=== PATIENT | male | born 1935 | race Caucasian/White ===

== ENCOUNTER 2019-08-20 12:37 | Emergency (ER) | payer MEDICARE ==
[2019-08-20 12:46] VITALS: TEMP 98.3
[2019-08-20] MEDS ORDERED: NITROGLYCERIN-D5W PMX 50 MG in DEXTROSE/WATER 1 250ML.BAG IV STA (12:49)
[2019-08-20] MEDS ORDERED: ASPIRIN 81 MG PO STA (12:49)
--- NOTE | 2019-08-20 12:52 | ED ---
General Adult HPI - General Chief complaint: Chest Pain Stated complaint: Chest pain Time Seen by Provider: 08/20/19 12:45 Source: patient, RN notes reviewed Mode of arrival: EMS Limitations: no limitations - History of Present Illness Initial comments: Patient is a pleasant 83-year-old male presenting to the emergency Department with chest discomfort. Onset of symptoms was prior to arrival. Discomfort was severe 9/10. Discomfort is much better now 5/10 following aspirin and nitro I EMS. Discomfort feels like an ache. No radiation. Patient does have associated dyspnea, nausea and was very sweaty. Patient does have a history of similar symptoms previously associated with heart attack and stent placement. - Related Data Home Medications Medication Instructions Recorded Confirmed Amiodarone [Cordarone] 100 mg PO DAILY 08/20/19 08/20/19 Apixaban [Eliquis] 2.5 mg PO BID 08/20/19 08/20/19 Aspirin EC [Ecotrin Low Dose] 81 mg PO HS 08/20/19 08/20/19 Atorvastatin [Lipitor] 40 mg PO HS 08/20/19 08/20/19 Ferrous Sulfate [Feosol] 325 mg PO HS 08/20/19 08/20/19 Furosemide [Lasix] 40 mg PO HS 08/20/19 08/20/19 HYDROcodone/APAP 10-325MG [[place] 1 tab PO DAILY PRN 08/20/19 08/20/19 10-325] Isosorbide Mononitrate ER [Imdur] 60 mg PO DAILY 08/20/19 08/20/19 Metoprolol Succinate (ER) [Toprol 25 mg PO DAILY 08/20/19 08/20/19 Xl] Nitroglycerin Sl Tabs [Nitrostat] 0.4 mg SUBLINGUAL Q5M PRN 08/20/19 08/20/19 Pantoprazole Sodium [Protonix] 40 mg PO HS 08/20/19 08/20/19 amLODIPine [Norvasc] 5 mg PO DAILY 08/20/19 08/20/19 hydrALAZINE HCL [Apresoline] 100 mg PO TID 08/20/19 08/20/19 predniSONE 20 mg PO DAILY 08/20/19 08/20/19 Allergies Allergy/AdvReac Type Severity Reaction Status Date / Time No Known Allergies Allergy Verified 08/20/19 14:24 Review of Systems ROS Statement: Those systems with pertinent positive or pertinent negative responses have been documented in the HPI. ROS Other: All systems not noted in ROS Statement are negative. Constitutional: Denies: fever Eyes: Denies: eye pain ENT: Denies: ear pain Respiratory: Reports: as per HPI, dyspnea Cardiovascular: Reports: as per HPI, chest pain Endocrine: Denies: fatigue Gastrointestinal: Reports: nausea Genitourinary: Denies: dysuria Musculoskeletal: Denies: back pain Skin: Denies: rash Neurological: Denies: weakness Past Medical History Past Medical History: Atrial Fibrillation, Cancer, Hyperlipidemia, Hypertension, Seizure Disorder Additional Past Medical History / Comment(s): bladder CA Prostate CA History of Any Multi-Drug Resistant Organisms: None Reported Past Surgical History: Bladder Surgery, Prostate Surgery Past Psychological History: No Psychological Hx Reported Smoking Status: Former smoker Past Alcohol Use History: None Reported Past Drug Use History: None Reported General Exam Limitations: no limitations General appearance: alert, in no apparent distress Head exam: Present: normocephalic Eye exam: Present: normal appearance, PERRL ENT exam: Present: normal oropharynx Neck exam: Present: normal inspection Respiratory exam: Present: normal lung sounds bilaterally. Absent: chest wall tenderness Cardiovascular Exam: Present: regular rate, normal rhythm Expanded Peripheral pulses: 2+: Radial (R), Radial (L), Posterior Tibialis (R), Posterior Tibialis (L), Dorsalis Pedis (R), Dorsalis Pedis (L) GI/Abdominal exam: Present: soft. Absent: distended, tenderness Extremities exam: Present: normal inspection. Absent: pedal edema, calf tenderness Neurological exam: Present: alert Psychiatric exam: Present: normal affect, normal mood Skin exam: Present: normal color Course Vital Signs 08/20/19 08/20/19 08/20/19 12:41 13:00 13:15 Temperature 98.3 F Pulse Rate 84 83 66 Respiratory 18 26 H 13 Rate Blood Pressure 203/85 203/85 187/84 O2 Sat by Pulse 95 98 98 Oximetry 08/20/19 08/20/19 08/20/19 13:30 13:45 14:00 Temperature Pulse Rate 62 60 62 Respiratory 16 14 17 Rate Blood Pressure 163/66 161/68 154/68 O2 Sat by Pulse 96 98 96 Oximetry 08/20/19 14:15 Temperature Pulse Rate 61 Respiratory 18 Rate Blood Pressure 151/64 O2 Sat by Pulse 98 Oximetry - Reevaluation(s) Reevaluation #1: 08/20/19 12:50 Cardiology has been paged 08/20/19 12:53 Case was discussed with Dr. Liriano who will look at EKG. 08/20/19 13:31 Repeat EKG shows normal sinus rhythm 66. WV 174. QRS 142. QT 438. QTC 459. Left axis. Right bundle branch block. Left anterior fascicular block. LVH criteria. Some ST depression in lead V5. Borderline elevation in aVR. 08/20/19 14:36 Previous EKG reviewed from 08/17/2019 with some similarities. This was is obtained from the patient's cardiology office. EKG Findings - EKG Comments: EKG Findings:: Normal sinus rhythm 86. W[place] 182. QRS 144. QT 426. QTc 509. Left axis. LVH criteria. There is some elevation in aVR. There is some ST depression V5 V6. Medical Decision Making - Medical Decision Making Patient reevaluated and near symptom-free. Patient and family updated on results and plan. 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 Case was discussed with Dr. Martinez at [facility] who will accept transfer. Patient does see Dr. lange there. Heparin not started secondary to patient being on Eliquis. - Lab Data Result diagrams: 08/20/19 12:49 08/20/19 12:49 Lab Results 08/20/19 08/20/19 08/20/19 Range/Units 12:49 12:49 12:49 WBC 9.3 (3.8-10.6) k/uL RBC 3.91 L (4.30-5.90) m/uL Hgb 9.8 L (13.0-17.5) gm/dL Hct 32.2 L (39.0-53.0) % MCV 82.3 (80.0-100.0) fL MCH 25.1 (25.0-35.0) pg MCHC 30.5 L (31.0-37.0) g/dL RDW 17.8 H (11.5-15.5) % Plt Count 301 (150-450) k/uL Neutrophils % 88 % Lymphocytes % 5 % Monocytes % 6 % Eosinophils % 0 % Basophils % 0 % Neutrophils # 8.1 H (1.3-7.7) k/uL Lymphocytes # 0.5 L (1.0-4.8) k/uL Monocytes # 0.6 (0-1.0) k/uL Eosinophils # 0.0 (0-0.7) k/uL Basophils # 0.0 (0-0.2) k/uL Hypochromasia Moderate Anisocytosis Slight PT 10.1 (9.0-12.0) sec INR 0.9 (<1.2) APTT 23.6 (22.0-30.0) sec Sodium 139 (137-145) mmol/L Potassium 4.5 (3.5-5.1) mmol/L Chloride 106 (98-107) mmol/L Carbon Dioxide 23 (22-30) mmol/L Anion Gap 10 mmol/L BUN 28 H (9-20) mg/dL Creatinine 2.13 H (0.66-1.25) mg/dL Est GFR (CKD-EPI)AfAm 32 (>60 ml/min/1.73 sqM) Est GFR (CKD-EPI)NonAf 27 (>60 ml/min/1.73 sqM) Glucose 213 H (74-99) mg/dL Calcium 10.3 H (8.4-10.2) mg/dL Magnesium 2.6 H (1.6-2.3) mg/dL Total Bilirubin 0.4 (0.2-1.3) mg/dL AST 20 (17-59) U/L ALT 22 (21-72) U/L Alkaline Phosphatase 77 (38-126) U/L Troponin I (0.000-0.034) ng/mL Total Protein 7.4 (6.3-8.2) g/dL Albumin 4.4 (3.5-5.0) g/dL 08/20/19 Range/Units 12:49 WBC (3.8-10.6) k/uL RBC (4.30-5.90) m/uL Hgb (13.0-17.5) gm/dL Hct (39.0-53.0) % MCV (80.0-100.0) fL MCH (25.0-35.0) pg MCHC (31.0-37.0) g/dL RDW (11.5-15.5) % Plt Count (150-450) k/uL Neutrophils % % Lymphocytes % % Monocytes % % Eosinophils % % Basophils % % Neutrophils # (1.3-7.7) k/uL Lymphocytes # (1.0-4.8) k/uL Monocytes # (0-1.0) k/uL Eosinophils # (0-0.7) k/uL Basophils # (0-0.2) k/uL Hypochromasia Anisocytosis PT (9.0-12.0) sec INR (<1.2) APTT (22.0-30.0) sec Sodium (137-145) mmol/L Potassium (3.5-5.1) mmol/L Chloride (98-107) mmol/L Carbon Dioxide (22-30) mmol/L Anion Gap mmol/L BUN (9-20) mg/dL Creatinine (0.66-1.25) mg/dL Est GFR (CKD-EPI)AfAm (>60 ml/min/1.73 sqM) Est GFR (CKD-EPI)NonAf (>60 ml/min/1.73 sqM) Glucose (74-99) mg/dL Calcium (8.4-10.2) mg/dL Magnesium (1.6-2.3) mg/dL Total Bilirubin (0.2-1.3) mg/dL AST (17-59) U/L ALT (21-72) U/L Alkaline Phosphatase (38-126) U/L Troponin I <0.012 (0.000-0.034) ng/mL Total Protein (6.3-8.2) g/dL Albumin (3.5-5.0) g/dL - Radiology Data Radiology results: image reviewed (Chest x-ray shows bilateral lower atelectasis or infiltrate with tiny left effusion) Critical Care Time Critical Care Time: Yes Total Critical Care Time: 31 Disposition Clinical Impression: Unstable angina pectoris Disposition: OTHER INSTITUTION NOT DEFINED Is patient prescribed a controlled substance at d/c from ED?: No Referrals: Vadim Torrez MD [Primary Care Provider] - 1-2 days Time of Disposition: 14:36 - Out of Hospital Transfer - Req. Specs Out of Hospital Transfer - Requested Specifics: Other Emergency Center
--- NOTE | 2019-08-20 13:05 | XR ---
EXAMINATION TYPE: XR chest 1V portable DATE OF EXAM: 08/20/2019 COMPARISON: 10/11/2012 HISTORY: Pain TECHNIQUE: Single frontal view of the chest is obtained. FINDINGS: Bilateral lower lobe subsegmental consolidation with small left effusion. Atherosclerotic change aorta. Diffuse osteopenia. No pneumothorax. No overt failure. IMPRESSION: Bilateral lower lobe atelectasis or infiltrate with tiny left effusion.
[2019-08-20] MEDS ORDERED: MORPHINE SULFATE 4 MG/ML SYRINGE IVP STA (13:07)
[2019-08-20 13:13] LABS: Anisocytosis Slight; Basophils % (A) 0 %; Eosinophils % (A) 0 %; HCT 32.2 % (39.0-53.0); HGB 9.8 gm/dL (13.0-17.5); Hypochromasia Moderate; Lymphocytes # (A) 0.5 k/uL (1.0-4.8); Lymphocytes % (A) 5 %; MCH 25.1 pg (25.0-35.0); MCHC 30.5 g/dL (31.0-37.0); MCV 82.3 fL (80.0-100.0); Mean Platelet Volume 8.2; Monocytes # (A) 0.6 k/uL (0-1.0); Monocytes % (A) 6 %; Neutrophils # (A) 8.1 k/uL (1.3-7.7); Neutrophils % (A) 88 %; Platelet Count 301 k/uL (150-450); RBC 3.91 m/uL (4.30-5.90); RDW 17.8 % (11.5-15.5); WBC 9.3 k/uL (3.8-10.6)
[2019-08-20 13:24] LABS: INR 0.9 (<1.2); Partial Thromboplastin Time 23.6 sec (22.0-30.0); Prothrombin Time 10.1 sec (9.0-12.0)
[2019-08-20 13:26] LABS: Albumin 4.4 g/dL (3.5-5.0); Calcium 10.3 mg/dL (8.4-10.2); Magnesium 2.6 mg/dL (1.6-2.3); Potassium 4.5 mmol/L (3.5-5.1); Total Bilirubin 0.4 mg/dL (0.2-1.3); Total Protein 7.4 g/dL (6.3-8.2)
[2019-08-20 15:29] VITALS: BP 163/74; PULSE 58; RESP 15
== END 2019-08-20 15:29 | disposition other institution (70) ==
LOC: EC 12:37
DX: I20.0 Unstable angina (principal); I48.91 Unspecified atrial fibrillation; E78.5 Hyperlipidemia, unspecified; I10 Essential (primary) hypertension; G40.909 Epilepsy, unspecified, not intractable, without status epilepticus; I25.2 Old myocardial infarction; Z79.01 Long term (current) use of anticoagulants; Z79.82 Long term (current) use of aspirin; Z79.899 Other long term (current) drug therapy; Z79.51 Long term (current) use of inhaled steroids; Z87.891 Personal history of nicotine dependence; Z85.46 Personal history of malignant neoplasm of prostate; Z85.51 Personal history of malignant neoplasm of bladder; Z95.5 Presence of coronary angioplasty implant and graft
CPT/HCPCS: 36415; 71045; 80053; 83735; 84484; 85025; 85610; 85730; 93005; 96365; 96366; 96375; 99291

== ENCOUNTER 2021-02-04 10:16 | Inpatient (IN) | payer MEDICARE ==
[2021-02-04] MEDS ORDERED: IBUPROFEN 600 MG TAB PO STA (10:17)
[2021-02-04] MEDS ORDERED: ACETAMINOPHEN TAB 500 MG TAB PO STA (10:17)
--- NOTE | 2021-02-04 10:22 | ED ---
General Adult HPI - General Stated complaint: Chest pain Time Seen by Provider: 02/04/21 10:16 Source: patient, RN notes reviewed, old records reviewed - History of Present Illness Initial comments: This is an 85-year-old male who presents to the emergency department complaining of chest pain and difficulty breathing as well as a cough. Patient states last night he had chest pain and shortness of breath and he took a nitroglycerin he thinks it helped a little he did it again this morning when he had a little chest pain and he states that helped a little but his biggest complaint is shortness of breath currently. Patient states she's also coughing up some sputum. Patient states he did get the COVID vaccine. Patient denies any fever but states he had the chills last night. Patient denies any chest pain currently. Patient denies any abdominal pain patient denies nausea vomiting diarrhea. - Related Data Home Medications Medication Instructions Recorded Confirmed Amiodarone [Cordarone] 100 mg PO DAILY 08/20/19 08/20/19 Apixaban [Eliquis] 2.5 mg PO BID 08/20/19 08/20/19 Aspirin EC [Ecotrin Low Dose] 81 mg PO HS 08/20/19 08/20/19 Atorvastatin [Lipitor] 40 mg PO HS 08/20/19 08/20/19 Ferrous Sulfate [Feosol] 325 mg PO HS 08/20/19 08/20/19 Furosemide [Lasix] 40 mg PO HS 08/20/19 08/20/19 HYDROcodone/APAP 10-325MG [[place] 1 tab PO DAILY PRN 08/20/19 08/20/19 10-325] Isosorbide Mononitrate ER [Imdur] 60 mg PO DAILY 08/20/19 08/20/19 Metoprolol Succinate (ER) [Toprol 25 mg PO DAILY 08/20/19 08/20/19 Xl] Nitroglycerin Sl Tabs [Nitrostat] 0.4 mg SUBLINGUAL Q5M PRN 08/20/19 08/20/19 Pantoprazole Sodium [Protonix] 40 mg PO HS 08/20/19 08/20/19 amLODIPine [Norvasc] 5 mg PO DAILY 08/20/19 08/20/19 hydrALAZINE HCL [Apresoline] 100 mg PO TID 08/20/19 08/20/19 predniSONE [Deltasone] 20 mg PO DAILY 08/20/19 08/20/19 Allergies Allergy/AdvReac Type Severity Reaction Status Date / Time No Known Allergies Allergy Verified 02/04/21 10:24 Review of Systems ROS Statement: Those systems with pertinent positive or pertinent negative responses have been documented in the HPI. ROS Other: All systems not noted in ROS Statement are negative. Past Medical History Past Medical History: Atrial Fibrillation, Cancer, Hyperlipidemia, Hypertension, Seizure Disorder Additional Past Medical History / Comment(s): bladder CA Prostate CA History of Any Multi-Drug Resistant Organisms: None Reported Past Surgical History: Bladder Surgery, Prostate Surgery Past Psychological History: No Psychological Hx Reported Past Alcohol Use History: None Reported Past Drug Use History: None Reported General Exam - General Exam Comments Initial Comments: GENERAL: Patient is well-developed and well-nourished. Patient is nontoxic and well- hydrated and is in mild distress. ENT: Neck is soft and supple. No significant lymphadenopathy is noted. Oropharynx is clear. Moist mucous membranes. Neck has full range of motion without eliciting any pain. EYES: The sclera were anicteric and conjunctiva were pink and moist. Extraocular movements were intact and pupils were equal round and reactive to light. Eyelids were unremarkable. PULMONARY: Unlabored respirations. Good breath sounds bilaterally. No audible rales rhonchi or wheezing was noted. CARDIOVASCULAR: There is a regular rate and rhythm without any murmurs gallops or rubs. ABDOMEN: Soft and nontender with normal bowel sounds. SKIN: Skin is clear with no lesions or rashes and otherwise unremarkable. NEUROLOGIC: Patient is alert and oriented x3. Cranial nerves II through XII are grossly intact. Motor and sensory are also intact. Normal speech, volume and content. Symmetrical smile. MUSCULOSKELETAL: Normal extremities with adequate strength and full range of motion. No lower extremity swelling or edema. No calf tenderness. LYMPHATICS: No significant lymphadenopathy is noted PSYCHIATRIC: Normal psychiatric evaluation. Course Vital Signs 02/04/21 02/04/21 02/04/21 10:19 10:37 11:10 Temperature 100.4 F H Pulse Rate 82 75 Respiratory 24 20 Rate Blood Pressure 179/76 166/65 O2 Sat by Pulse 95 93 L 99 Oximetry 02/04/21 11:46 Temperature 99.2 F Pulse Rate 78 Respiratory 20 Rate Blood Pressure 166/65 O2 Sat by Pulse 98 Oximetry Medical Decision Making - Medical Decision Making EKG shows normal sinus rhythm at 81 bpm CO interval 178 QRSs 132 QT interval 4:30 QTC is 499. Patient's EKG shows a right bundle branch block there is no ST segment elevation. Chest x-ray shows bilateral pleural effusions probable mild pulmonary edema as well as pneumonia. I started the patient antibiotics in the emergency department. I spoke with Dr. rivero he agreed to admit the patient admitted the patient wrote admitting orders. - Lab Data Result diagrams: 02/04/21 10:47 02/04/21 10:47 Lab Results 02/04/21 02/04/21 02/04/21 Range/Units 10:28 10:47 10:47 WBC 26.1 H (3.8-10.6) k/uL RBC 3.90 L (4.30-5.90) m/uL Hgb 9.4 L (13.0-17.5) gm/dL Hct 30.2 L (39.0-53.0) % MCV 77.4 L (80.0-100.0) fL MCH 24.2 L (25.0-35.0) pg MCHC 31.3 (31.0-37.0) g/dL RDW 15.6 H (11.5-15.5) % Plt Count 118 L (150-450) k/uL MPV 11.6 Neutrophils % 89 % Lymphocytes % 1 % Monocytes % 8 % Eosinophils % 0 % Basophils % 0 % Neutrophils # 23.1 H (1.3-7.7) k/uL Lymphocytes # 0.3 L (1.0-4.8) k/uL Monocytes # 2.2 H (0-1.0) k/uL Eosinophils # 0.0 (0-0.7) k/uL Basophils # 0.0 (0-0.2) k/uL Manual Slide Review Performed Microcytosis Slight PT 10.5 (9.0-12.0) sec INR 1.0 (<1.2) APTT 22.2 (22.0-30.0) sec Sodium (137-145) mmol/L Potassium (3.5-5.1) mmol/L Chloride (98-107) mmol/L Carbon Dioxide (22-30) mmol/L Anion Gap mmol/L BUN (9-20) mg/dL Creatinine (0.66-1.25) mg/dL Est GFR (CKD-EPI)AfAm (>60 ml/min/1.73 sqM) Est GFR (CKD-EPI)NonAf (>60 ml/min/1.73 sqM) Glucose (74-99) mg/dL Plasma Lactic Acid Ferny (0.7-2.0) mmol/L Calcium (8.4-10.2) mg/dL Total Bilirubin (0.2-1.3) mg/dL AST (17-59) U/L ALT (4-49) U/L Alkaline Phosphatase (38-126) U/L Troponin I (0.000-0.034) ng/mL NT-Pro-B Natriuret Pep pg/mL Total Protein (6.3-8.2) g/dL Albumin (3.5-5.0) g/dL Coronavirus (PCR) Not Detected (Not Detectd) 02/04/21 02/04/21 02/04/21 Range/Units 10:47 10:47 10:47 WBC (3.8-10.6) k/uL RBC (4.30-5.90) m/uL Hgb (13.0-17.5) gm/dL Hct (39.0-53.0) % MCV (80.0-100.0) fL MCH (25.0-35.0) pg MCHC (31.0-37.0) g/dL RDW (11.5-15.5) % Plt Count (150-450) k/uL MPV Neutrophils % % Lymphocytes % % Monocytes % % Eosinophils % % Basophils % % Neutrophils # (1.3-7.7) k/uL Lymphocytes # (1.0-4.8) k/uL Monocytes # (0-1.0) k/uL Eosinophils # (0-0.7) k/uL Basophils # (0-0.2) k/uL Manual Slide Review Microcytosis PT (9.0-12.0) sec INR (<1.2) APTT (22.0-30.0) sec Sodium 138 (137-145) mmol/L Potassium 3.6 (3.5-5.1) mmol/L Chloride 105 (98-107) mmol/L Carbon Dioxide 25 (22-30) mmol/L Anion Gap 8 mmol/L BUN 24 H (9-20) mg/dL Creatinine 2.39 H (0.66-1.25) mg/dL Est GFR (CKD-EPI)AfAm 27 (>60 ml/min/1.73 sqM) Est GFR (CKD-EPI)NonAf 24 (>60 ml/min/1.73 sqM) Glucose 119 H (74-99) mg/dL Plasma Lactic Acid Ferny 1.1 (0.7-2.0) mmol/L Calcium 8.8 (8.4-10.2) mg/dL Total Bilirubin 0.4 (0.2-1.3) mg/dL AST 23 (17-59) U/L ALT 15 (4-49) U/L Alkaline Phosphatase 70 (38-126) U/L Troponin I 0.016 (0.000-0.034) ng/mL NT-Pro-B Natriuret Pep pg/mL Total Protein 6.6 (6.3-8.2) g/dL Albumin 3.9 (3.5-5.0) g/dL Coronavirus (PCR) (Not Detectd) 02/04/21 Range/Units 10:47 WBC (3.8-10.6) k/uL RBC (4.30-5.90) m/uL Hgb (13.0-17.5) gm/dL Hct (39.0-53.0) % MCV (80.0-100.0) fL MCH (25.0-35.0) pg MCHC (31.0-37.0) g/dL RDW (11.5-15.5) % Plt Count (150-450) k/uL MPV Neutrophils % % Lymphocytes % % Monocytes % % Eosinophils % % Basophils % % Neutrophils # (1.3-7.7) k/uL Lymphocytes # (1.0-4.8) k/uL Monocytes # (0-1.0) k/uL Eosinophils # (0-0.7) k/uL Basophils # (0-0.2) k/uL Manual Slide Review Microcytosis PT (9.0-12.0) sec INR (<1.2) APTT (22.0-30.0) sec Sodium (137-145) mmol/L Potassium (3.5-5.1) mmol/L Chloride (98-107) mmol/L Carbon Dioxide (22-30) mmol/L Anion Gap mmol/L BUN (9-20) mg/dL Creatinine (0.66-1.25) mg/dL Est GFR (CKD-EPI)AfAm (>60 ml/min/1.73 sqM) Est GFR (CKD-EPI)NonAf (>60 ml/min/1.73 sqM) Glucose (74-99) mg/dL Plasma Lactic Acid Ferny (0.7-2.0) mmol/L Calcium (8.4-10.2) mg/dL Total Bilirubin (0.2-1.3) mg/dL AST (17-59) U/L ALT (4-49) U/L Alkaline Phosphatase (38-126) U/L Troponin I (0.000-0.034) ng/mL NT-Pro-B Natriuret Pep 1660 pg/mL Total Protein (6.3-8.2) g/dL Albumin (3.5-5.0) g/dL Coronavirus (PCR) (Not Detectd) Disposition Clinical Impression: Pneumonia, Pulmonary edema Disposition: ADMITTED IP TO THIS HOSP Referrals: Vadim Torrez MD [Primary Care Provider] - 1-2 days Time of Disposition: 12:18
[2021-02-04] MEDS: SODIUM CHLORIDE 0.9% 500 ML 500 ML IV SCH ×2 (10:30→11:38)
--- NOTE | 2021-02-04 11:08 | XR ---
EXAMINATION TYPE: XR chest 2V DATE OF EXAM: 02/04/2021 COMPARISON: Chest x-ray August 20, 2019. HISTORY: Chest pain and shortness of breath. Fever. TECHNIQUE: Frontal and lateral views of the chest are obtained. FINDINGS: There is stable mild cardiomegaly. There is central vascular congestion and bibasilar opac ities. The osseous structures are demineralized. IMPRESSION: Correlate for CHF exacerbation as there is cardiomegaly with mild central vascular conges tion and small to tiny bilateral pleural effusions on current study.
[2021-02-04 11:15] LABS: Partial Thromboplastin Time 22.2 sec (22.0-30.0); Prothrombin Time 10.5 sec (9.0-12.0)
[2021-02-04 11:16] LABS: Albumin 3.9 g/dL (3.5-5.0); Calcium 8.8 mg/dL (8.4-10.2); Potassium 3.6 mmol/L (3.5-5.1); Total Bilirubin 0.4 mg/dL (0.2-1.3); Total Protein 6.6 g/dL (6.3-8.2)
[2021-02-04 11:19] LABS: Basophils % (A) 0 %; Eosinophils % (A) 0 %; HCT 30.2 % (39.0-53.0); HGB 9.4 gm/dL (13.0-17.5); Lymphocytes # (A) 0.3 k/uL (1.0-4.8); Lymphocytes % (A) 1 %; MCH 24.2 pg (25.0-35.0); MCHC 31.3 g/dL (31.0-37.0); MCV 77.4 fL (80.0-100.0); Mean Platelet Volume 11.6; Microcytosis Slight; Monocytes # (A) 2.2 k/uL (0-1.0); Monocytes % (A) 8 %; Neutrophils # (A) 23.1 k/uL (1.3-7.7); Neutrophils % (A) 89 %; RDW 15.6 % (11.5-15.5); WBC 26.1 k/uL (3.8-10.6)
[2021-02-04 11:38] LABS: Platelet Count 118 k/uL (150-450)
[2021-02-04] MEDS ORDERED: FUROSEMIDE 10 MG/ML 2 ML VIAL IV STA (11:48)
[2021-02-04] MEDS ORDERED: PNEUMONIA PROTOCOL UTILIZED 1 EACH MISC PO PRN (12:19)
[2021-02-04] MEDS ORDERED: AZITHROMYCIN 500 MG in SODIUM CHLORIDE 0.9% 250 ML IVPB STA (12:19)
[2021-02-04 12:53] LABS: Amorphous Sediment,Urine Rare /hpf; Appearance,Urine Cloudy (Clear); Bilirubin,Urine Negative (Negative); Blood,Urine Moderate (Negative); Color,Urine Light Yellow; Glucose,Urine (UA) Negative (Negative); Ketones,Urine Negative (Negative); Leukocyte Esterase,Urine Negative (Negative); Mucus,Urine Rare /hpf; Nitrite,Urine Negative (Negative); Protein,Urine Trace (Negative); RBC,Urine 57 /hpf (0-5); Specific Gravity,Urine 1.007 (1.001-1.035); Squamous Epithelial Cell,Urine 1 /hpf (0-4); Urobilinogen,Urine <2.0 mg/dL (<2.0); WBC,Urine 2 /hpf (0-5)
--- NOTE | 2021-02-04 13:17 | P.CNPUL ---
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, patient came into the hospital with several days history of increase wet cough and congestion associated with white to yellow sputum production 2 days ago developed increasing shortness of breath, also chills, presented to emergency department found to have a fever, patient is been having off-and-on chest pain since yesterday without any significant relief with nitro, patient is status post vaccination with: Vaccine, review of the data revealed that patient is on diuretic anticoagulation with oral anticoagulant also antiarrhythmic agents with amiodarone and Lasix, patient recalls cardiac cath and angiogram in the past with 2 stent placement one was done at [facility], he is unaware of his ejection fraction, his prior history significant for the in addition to above seizure disorder, dyslipidemia, chronic atrial fibrillation, prostate and bladder cancer, patient does have a remote history of smoking in the past quit several years ago Patient on arrival slightly hypertensive with fever of 100.4, sats were 93% on supplemental oxygen with 2 L, white cell count is elevated to 26,000, BUN/creatinine 24 and 2.39, patient has been started on IV Rocephin with Zithromax, chest x-ray significant for developing right lower lobe and right upper lobe infiltrate, small bilateral pleural effusion more so on the left side compared right side, Review of Systems All systems: negative Past Medical History Past Medical History: Atrial Fibrillation, Cancer, Hyperlipidemia, Hypertension, Seizure Disorder Additional Past Medical History / Comment(s): bladder CA Prostate CA History of Any Multi-Drug Resistant Organisms: None Reported Past Surgical History: Bladder Surgery, Prostate Surgery Past Psychological History: No Psychological Hx Reported Past Alcohol Use History: None Reported Past Drug Use History: None Reported Medications and Allergies Home Medications Medication Instructions Recorded Confirmed Type Amiodarone [Cordarone] 100 mg PO DAILY 08/20/19 08/20/19 History Apixaban [Eliquis] 2.5 mg PO BID 08/20/19 08/20/19 History Aspirin EC [Ecotrin Low Dose] 81 mg PO HS 08/20/19 08/20/19 History Atorvastatin [Lipitor] 40 mg PO HS 08/20/19 08/20/19 History Ferrous Sulfate [Feosol] 325 mg PO HS 08/20/19 08/20/19 History Furosemide [Lasix] 40 mg PO HS 08/20/19 08/20/19 History HYDROcodone/APAP 10-325MG [[place] 1 tab PO DAILY PRN 08/20/19 08/20/19 History 10-325] Isosorbide Mononitrate ER [Imdur] 60 mg PO DAILY 08/20/19 08/20/19 History Metoprolol Succinate (ER) [Toprol 25 mg PO DAILY 08/20/19 08/20/19 History Xl] Nitroglycerin Sl Tabs [Nitrostat] 0.4 mg SUBLINGUAL Q5M PRN 08/20/19 08/20/19 History Pantoprazole Sodium [Protonix] 40 mg PO HS 08/20/19 08/20/19 History amLODIPine [Norvasc] 5 mg PO DAILY 08/20/19 08/20/19 History hydrALAZINE HCL [Apresoline] 100 mg PO TID 08/20/19 08/20/19 History predniSONE [Deltasone] 20 mg PO DAILY 08/20/19 08/20/19 History Allergies Allergy/AdvReac Type Severity Reaction Status Date / Time No Known Allergies Allergy Verified 02/04/21 10:24 Physical Exam Vitals: Vital Signs Temp Pulse Resp BP Pulse Ox 02/04/21 13:04 70 18 138/56 95 02/04/21 12:00 67 16 166/65 98 02/04/21 11:46 99.2 F 78 20 166/65 98 02/04/21 11:10 75 20 166/65 99 02/04/21 10:37 93 L 02/04/21 10:19 100.4 F H 82 24 179/76 95 Intake and Output 02/03/21 02/04/21 02/04/21 22:59 06:59 14:59 Other: Weight 81.647 kg - Constitutional General appearance: average body habitus, cooperative, disheveled - EENT Eyes: EOMI, PERRLA Ears: bilateral: normal - Neck Neck: normal ROM Carotids: bilateral: upstroke normal Thyroid: bilateral: normal size - Respiratory Respiratory: bilateral: rales (With bronchial breath sounds bilaterally) - Cardiovascular Rhythm: regular Heart sounds: normal: S1, S2 - Gastrointestinal General gastrointestinal: normal bowel sounds - Integumentary Integumentary: normal - Neurologic Neurologic: CNII-XII intact - Musculoskeletal Musculoskeletal: gait normal, generalized weakness, strength equal bilaterally - Psychiatric Psychiatric: A&O x's 3, appropriate affect, intact judgment & insight Results - Laboratory Findings CBC and BMP: 02/04/21 10:47 02/04/21 10:47 PT/INR, D-dimer PT 10.5 sec (9.0-12.0) 02/04/21 10:47 INR 1.0 (<1.2) 02/04/21 10:47 Abnormal lab findings: Abnormal Labs 02/04/21 02/04/21 02/04/21 10:47 10:47 12:35 WBC 26.1 H RBC 3.90 L Hgb 9.4 L Hct 30.2 L MCV 77.4 L MCH 24.2 L RDW 15.6 H Plt Count 118 L Neutrophils # 23.1 H Lymphocytes # 0.3 L Monocytes # 2.2 H BUN 24 H Creatinine 2.39 H Glucose 119 H Urine Protein Trace H Urine Blood Moderate H Urine RBC 57 H Amorphous Sediment Rare H Urine Mucus Rare H - Diagnostic Findings Chest x-ray: report reviewed, image reviewed (Finding as noted above) Assessment and Plan Assessment: Acute hypoxic respiratory failure Right-sided pneumonia likely community-acquired pneumonia involving right upper lobe and right lower lobe Acute exacerbation of heart failure likely chronic systolic heart failure Small bilateral pleural effusion more so on the left side compared to right side Ischemic cardiomyopathy Chronic atrial fibrillation on anticoagulation Plan: Continue supplemental oxygen Broad-spectrum antibiotics with Rocephin and Zithromax Cardiovascular evaluation prior cardiovascular services Will obtain computed tomography scan of the chest to look into pneumonia more detail without contrast Time with Patient: Greater than 30
--- NOTE | 2021-02-04 13:31 | P.HPIM ---
History of Present Illness This is a pleasant 85 years old male with past medical history of hypertension, hyperlipidemia, atrial fibrillation and seizure disorder, he has history of prostate and bladder cancer. Patient states he presents because of dyspnea wanted days duration associated with cough and clear phlegm and some chest tightness rather than pain. No abdominal pain or nausea vomiting or diarrhea. However patient complaining of from right leg pain with no history of fall Patient has fever of 100.4 on admission, his vitals stable. Laboratory showing leukocytosis with WBC 26.20. Hemoglobin 9.4, platelet count is low as 118. INR is normal. Creatinine is 2.3 which is at baseline Urinalysis showing moderate blood and hematuria Coronary first not detected. Chest x-ray showing right lower and upper lobe infiltrate Patient was started on Rocephin and Zithromax. Review of Systems CONSTITUTIONAL: No fever, no malaise, no fatigue. HEENT: No recent visual problems or hearing problems. Denied any sore throat. CARDIOVASCULAR: No orthopnea, PND, no palpitations, no syncope. PULMONARY: No chest wall tenderness, no hemoptysis. GASTROINTESTINAL: No diarrhea, no nausea, no vomiting, no abdominal pain. Normoactive bowel sounds. NEUROLOGICAL: No headaches, no weakness, no numbness. HEMATOLOGICAL: Denies any bleeding or petechiae. GENITOURINARY: Denies any burning micturition, frequency, or urgency. MUSCULOSKELETAL/RHEUMATOLOGICAL: Denies any joint pain, swelling, or any muscle pain. ENDOCRINE: Denies any polyuria or polydipsia. Past Medical History Past Medical History: Atrial Fibrillation, Cancer, Hyperlipidemia, Hypertension, Seizure Disorder Additional Past Medical History / Comment(s): bladder CA Prostate CA History of Any Multi-Drug Resistant Organisms: None Reported Past Surgical History: Bladder Surgery, Prostate Surgery Past Psychological History: No Psychological Hx Reported Past Alcohol Use History: None Reported Past Drug Use History: None Reported Medications and Allergies Home Medications Medication Instructions Recorded Confirmed Type Amiodarone [Cordarone] 100 mg PO DAILY 08/20/19 08/20/19 History Apixaban [Eliquis] 2.5 mg PO BID 08/20/19 08/20/19 History Aspirin EC [Ecotrin Low Dose] 81 mg PO HS 08/20/19 08/20/19 History Atorvastatin [Lipitor] 40 mg PO HS 08/20/19 08/20/19 History Ferrous Sulfate [Feosol] 325 mg PO HS 08/20/19 08/20/19 History Furosemide [Lasix] 40 mg PO HS 08/20/19 08/20/19 History HYDROcodone/APAP 10-325MG [[place] 1 tab PO DAILY PRN 08/20/19 08/20/19 History 10-325] Isosorbide Mononitrate ER [Imdur] 60 mg PO DAILY 08/20/19 08/20/19 History Metoprolol Succinate (ER) [Toprol 25 mg PO DAILY 08/20/19 08/20/19 History Xl] Nitroglycerin Sl Tabs [Nitrostat] 0.4 mg SUBLINGUAL Q5M PRN 08/20/19 08/20/19 History Pantoprazole Sodium [Protonix] 40 mg PO HS 08/20/19 08/20/19 History amLODIPine [Norvasc] 5 mg PO DAILY 08/20/19 08/20/19 History hydrALAZINE HCL [Apresoline] 100 mg PO TID 08/20/19 08/20/19 History predniSONE [Deltasone] 20 mg PO DAILY 08/20/19 08/20/19 History Allergies Allergy/AdvReac Type Severity Reaction Status Date / Time No Known Allergies Allergy Verified 02/04/21 10:24 Physical Exam Vitals: Vital Signs Temp Pulse Resp BP Pulse Ox 02/04/21 13:04 70 18 138/56 95 02/04/21 12:00 67 16 166/65 98 02/04/21 11:46 99.2 F 78 20 166/65 98 02/04/21 11:10 75 20 166/65 99 02/04/21 10:37 93 L 02/04/21 10:19 100.4 F H 82 24 179/76 95 Intake and Output 02/03/21 02/04/21 02/04/21 22:59 06:59 14:59 Other: Weight 81.647 kg GENERAL: The patient is alert and oriented x3, not in any acute distress. Well developed, well nourished. HEENT: Pupils are round and equally reacting to light. EOMI. No scleral icterus. No conjunctival pallor. Normocephalic, atraumatic. No pharyngeal erythema. No thyromegaly. CARDIOVASCULAR: S1 and S2 present. No murmurs, rubs, or gallops. PULMONARY: Chest is clear to auscultation, no wheezing or crackles. ABDOMEN: Soft, nontender, nondistended, normoactive bowel sounds. No palpable organomegaly. MUSCULOSKELETAL: No joint swelling or deformity. EXTREMITIES: No cyanosis, clubbing, or pedal edema. NEUROLOGICAL: Gross neurological examination did not reveal any focal deficits. SKIN: No rashes. No petechiae Results CBC & Chem 7: 02/04/21 10:47 02/04/21 10:47 Labs: Abnormal Lab Results - Last 24 Hours (Table) 02/04/21 02/04/21 02/04/21 Range/Units 10:47 10:47 12:35 WBC 26.1 H (3.8-10.6) k/uL RBC 3.90 L (4.30-5.90) m/uL Hgb 9.4 L (13.0-17.5) gm/dL Hct 30.2 L (39.0-53.0) % MCV 77.4 L (80.0-100.0) fL MCH 24.2 L (25.0-35.0) pg RDW 15.6 H (11.5-15.5) % Plt Count 118 L (150-450) k/uL Neutrophils # 23.1 H (1.3-7.7) k/uL Lymphocytes # 0.3 L (1.0-4.8) k/uL Monocytes # 2.2 H (0-1.0) k/uL BUN 24 H (9-20) mg/dL Creatinine 2.39 H (0.66-1.25) mg/dL Glucose 119 H (74-99) mg/dL Urine Protein Trace H (Negative) Urine Blood Moderate H (Negative) Urine RBC 57 H (0-5) /hpf Amorphous Sediment Rare H (None) /hpf Urine Mucus Rare H (None) /hpf Assessment and Plan Assessment: Right upper lobe pneumonia, mostly community acquired pneumonia Sepsis secondary to stop with leukocytosis and fever. Acute hematuria in view of his history of bladder cancer Right hip pain Hypertension Hyperlipidemia Atrial fibrillation History of seizure disorder History of prostate and bladder cancer Chronic kidney disease, stage IV Plan: This is a pleasant 85 years old male who presents with right pneumonia. Continue with ceftriaxone and Rocephin. Pulmonary consult. Follow-up CAT scan. Repeat urinalysis, check bladder scan. Consider urology evaluation. Labs and medication were reviewed.. Continue same treatment. Continue with symptomatic treatment. Resume home medication. Monitor lytes and vitals. DVT and GI prophylaxis. Further recommendations depends on the clinical course of the patient DVT prophylaxis: Patient was on Eliquis at home GI Prophylaxis: Pepcid PT/OT: Pending Prognosis is guarded
[2021-02-04] MEDS: FAMOTIDINE 20 MG/2 ML VIAL IV SCH (13:47)
--- NOTE | 2021-02-04 14:20 | CT ---
EXAMINATION TYPE: CT chest wo con DATE OF EXAM: 02/04/2021 COMPARISON: Chest x-ray from earlier today HISTORY: RUL mass, RLL pneumonia CT DLP: 272.3 mGycm. Automated Exposure Control for Dose Reduction was Utilized. TECHNIQUE: CT scan of the thorax is performed without IV contrast. FINDINGS: LUNGS: Mild chronic emphysematous change. There is small left pleural effusion. Focus of increased gr oundglass opacity in the lingula abuts major fissure. Scattered additional areas of reticulonodular i ncreased opacity bilaterally greatest centrally in the hilar and infrahilar regions. There is 2.2 x 1 .3 cm right middle lobe nodule or nodule consolidation axial image 33 that warrants follow-up. No pne umothorax seen bilaterally. MEDIASTINUM: Lack of IV contrast is noted to limit evaluation for mediastinal and especially hilar ad enopathy. There are no definitive greater than 1 cm hilar or mediastinal lymph nodes. No pericardia l effusion is seen. Cardiomegaly is present. There is three-vessel coronary artery calcification and/ or stents. OTHER: Diverticula and visualized colon upper abdomen . Suspect 2 to 3 mm nonobstructing calculus upp er pole right kidney coronal image 50. Moderate multilevel spurring in the thoracic spine. IMPRESSION: Cardiomegaly with small left pleural effusion. Areas of increased groundglass opacity cou ld reflect multifocal infectious process. Suspect mild degree of alveolar and interstitial edema on b ackground infectious process. Areas of nodularity are concerning, short-term follow-up contrast-enhan ayaka CT is advised after treatment to reassess.
[2021-02-04] MEDS ORDERED: HYDROcodone/APAP 10-325MG 1 EACH TAB PO PRN (14:50)
--- NOTE | 2021-02-04 14:52 | XR ---
RESULT: HISTORY: Pain and tenderness TECHNIQUE: Single AP view of the hip. COMPARISON: None. FINDINGS: There is no acute fracture or dislocation. The visualized joint spaces are preserved. Partially image d right hemipelvic surgical clips. IMPRESSION: No acute osseous abnormality within the limitations of the study.
[2021-02-04] MEDS: FERROUS SULFATE 325 MG TAB PO SCH (15:22)
[2021-02-04] MEDS: PANTOPRAZOLE 40 MG TABLET PO SCH (15:22)
[2021-02-04] MEDS: ATORVASTATIN 40 MG TAB PO SCH (15:22)
[2021-02-04] MEDS: hydrALAZINE HCL 50 MG TAB PO SCH ×2 (15:55→21:01)
[2021-02-04] MEDS: HYDROcodone/APAP 10-325MG 1 EACH TAB PO PRN (21:42)
[2021-02-05] MEDS: DOXAZOSIN 2 MG TAB PO SCH ×2 (00:36→20:51)
[2021-02-05] MEDS: HYDROcodone/APAP 10-325MG 1 EACH TAB PO PRN ×2 (03:53→21:50)
[2021-02-05] MEDS ORDERED: ISOSORBIDE MONONITRATE ER 30 MG TAB.ER.24H PO SCH (06:00)
[2021-02-05] MEDS: carvediloL 6.25 MG TAB PO SCH (06:13)
[2021-02-05] MEDS: amLODIPine 5 MG TAB PO SCH (06:13)
[2021-02-05] MEDS: ASPIRIN 81 MG PO SCH (06:13)
[2021-02-05] MEDS: AMIODARONE 100 MG TAB PO SCH (06:13)
[2021-02-05] MEDS: ISOSORBIDE MONONITRATE ER 30 MG TAB.ER.24H PO SCH (06:14)
--- NOTE | 2021-02-05 07:16 | XR ---
EXAMINATION TYPE: XR chest 2V DATE OF EXAM: 02/05/2021 COMPARISON: Chest x-ray and CT from yesterday HISTORY: Difficulty breathing and pneumonia. TECHNIQUE: Frontal and lateral views of the chest are obtained. FINDINGS: There is stable mild cardiomegaly. There is central vascular congestion and small left gre ater than right pleural effusion. Persistent bilateral left greater than right midlung opacity. The osseous structures remain demineralized. IMPRESSION: Persistent cardiomegaly with mild central vascular congestion and small left greater than right pleural effusions along with focal lateral left mid lung acute infiltrate are redemonstrated. No significant change from one day earlier.
[2021-02-05 07:49] LABS: Basophils % (A) 0 %; Eosinophils % (A) 0 %; HCT 27.2 % (39.0-53.0); HGB 8.8 gm/dL (13.0-17.5); Hypochromasia Slight; Lymphocytes # (A) 0.5 k/uL (1.0-4.8); Lymphocytes % (A) 7 %; MCH 25.5 pg (25.0-35.0); MCHC 32.3 g/dL (31.0-37.0); MCV 78.8 fL (80.0-100.0); Mean Platelet Volume 9.2; Monocytes # (A) 0.8 k/uL (0-1.0); Monocytes % (A) 11 %; Neutrophils # (A) 5.5 k/uL (1.3-7.7); Neutrophils % (A) 78 %; RBC 3.45 m/uL (4.30-5.90); RDW 15.5 % (11.5-15.5)
[2021-02-05 08:02] LABS: Calcium 8.1 mg/dL (8.4-10.2); Magnesium 2.3 mg/dL (1.6-2.3); Potassium 3.8 mmol/L (3.5-5.1)
[2021-02-05 08:20] LABS: Platelet Count 91 k/uL (150-450)
[2021-02-05 08:23] LABS: Hypersegmented Neutrophils Present
[2021-02-05] MEDS: ONDANSETRON 4 MG/2 ML VIAL IVP PRN (08:27)
[2021-02-05] MEDS: AZITHROMYCIN 500 MG TAB PO SCH (10:14)
[2021-02-05] MEDS: hydrALAZINE HCL 50 MG TAB PO SCH ×3 (10:14→21:00)
[2021-02-05] MEDS: FAMOTIDINE 20 MG/2 ML VIAL IV SCH (10:15)
--- NOTE | 2021-02-05 10:17 | P.GSCN ---
History of Present Illness Consult date: 02/05/21 Reason for Consult: Hematuria Requesting physician: Chuck E Sheet History of present illness: The patient is an 85-year-old white male who underwent a radical prostatectomy for prostate cancer approximately [address] Martin[address] He received adjuvant radiation therapy, and has experienced significant urinary incontinence since that time. He was subsequently diagnosed with superficial bladder cancer. He underwent initial resection followed by surveillance cystoscopy, but was not treated with intravesical chemotherapy or BCG. 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 He was hospitalized a couple of months ago and underwent cystoscopy, which showed no evidence of intravesical pathology. He is unsure who did this, though he believes it was done in the [facility] area. He was catheterized yesterday for a urine specimen, which showed microhematuria. He denies gross hematuria. Review of Systems - Constitutional Reports fever - Respiratory Reports dyspnea - Genitourinary Denies dysuria, Denies hematuria Past Medical History Past Medical History: Atrial Fibrillation, Cancer, Hyperlipidemia, Hypertension, Seizure Disorder Additional Past Medical History / Comment(s): bladder CA Prostate CA History of Any Multi-Drug Resistant Organisms: None Reported Past Surgical History: Bladder Surgery, Prostate Surgery Past Psychological History: No Psychological Hx Reported Smoking Status: Former smoker Past Alcohol Use History: None Reported Past Drug Use History: None Reported Medications and Allergies Home Medications Medication Instructions Recorded Confirmed Type Aspirin EC [Ecotrin Low Dose] 81 mg PO DAILY@0600 08/20/19 02/04/21 History Atorvastatin [Lipitor] 40 mg PO DAILY@1500 08/20/19 02/04/21 History Ferrous Sulfate [Feosol] 325 mg PO DAILY@1500 08/20/19 02/04/21 History Furosemide [Lasix] 40 mg PO Q48H 08/20/19 02/04/21 History HYDROcodone/APAP 10-325MG [[place] 1 tab PO BID PRN 08/20/19 02/04/21 History 10-325] Nitroglycerin Sl Tabs [Nitrostat] 0.4 mg SL Q5M PRN 08/20/19 02/04/21 History Pantoprazole Sodium [Protonix] 40 mg PO DAILY@1500 08/20/19 02/04/21 History amLODIPine [Norvasc] 5 mg PO DAILY@0600 08/20/19 02/04/21 History hydrALAZINE HCL [Apresoline] 100 mg PO TID 08/20/19 02/04/21 History Amiodarone [Cordarone] 100 mg PO DAILY@59902/04/21 02/04/21 History Carvedilol [Coreg] 6.25 mg PO DAILY@59902/04/21 02/04/21 History Isosorbide Mononitrate ER [Imdur] 30 mg PO DAILY@59902/04/21 02/04/21 History Allergies Allergy/AdvReac Type Severity Reaction Status Date / Time No Known Allergies Allergy Verified 02/04/21 14:01 Surgical - Exam Vital Signs Temp Pulse Resp BP Pulse Ox 100.4 F H 82 24 179/76 95 02/04/21 10:19 02/04/21 10:19 02/04/21 10:19 02/04/21 10:02/04/21 10:19 - General well developed, well nourished, no distress - Respiratory normal respiratory effort - Abdomen Abdomen: soft, non tender, no guarding, no rigid, no rebound - Genitourinary normal penis with no external lesions, testicles non-tender - Psychiatric oriented to time, oriented to person, oriented to place, speech is normal, memory intact Results - Labs 02/05/21 07:21 02/05/21 07:21 Abnormal Lab Results - Last 24 Hours (Table) 02/04/21 02/04/21 02/04/21 Range/Units 10:47 10:47 12:35 WBC 26.1 H (3.8-10.6) k/uL RBC 3.90 L (4.30-5.90) m/uL Hgb 9.4 L (13.0-17.5) gm/dL Hct 30.2 L (39.0-53.0) % MCV 77.4 L (80.0-100.0) fL MCH 24.2 L (25.0-35.0) pg RDW 15.6 H (11.5-15.5) % Plt Count 118 L (150-450) k/uL Neutrophils # 23.1 H (1.3-7.7) k/uL Lymphocytes # 0.3 L (1.0-4.8) k/uL Monocytes # 2.2 H (0-1.0) k/uL Chloride (98-107) mmol/L BUN 24 H (9-20) mg/dL Creatinine 2.39 H (0.66-1.25) mg/dL Glucose 119 H (74-99) mg/dL Calcium (8.4-10.2) mg/dL Urine Protein Trace H (Negative) Urine Blood Moderate H (Negative) Urine RBC 57 H (0-5) /hpf Amorphous Sediment Rare H (None) /hpf Urine Mucus Rare H (None) /hpf 02/05/21 02/05/21 Range/Units 07:21 07:21 WBC (3.8-10.6) k/uL RBC 3.45 L (4.30-5.90) m/uL Hgb 8.8 L (13.0-17.5) gm/dL Hct 27.2 L (39.0-53.0) % MCV 78.8 L (80.0-100.0) fL MCH (25.0-35.0) pg RDW (11.5-15.5) % Plt Count 91 L (150-450) k/uL Neutrophils # (1.3-7.7) k/uL Lymphocytes # 0.5 L (1.0-4.8) k/uL Monocytes # (0-1.0) k/uL Chloride 108 H (98-107) mmol/L BUN 28 H (9-20) mg/dL Creatinine 2.55 H (0.66-1.25) mg/dL Glucose (74-99) mg/dL Calcium 8.1 L (8.4-10.2) mg/dL Urine Protein (Negative) Urine Blood (Negative) Urine RBC (0-5) /hpf Amorphous Sediment (None) /hpf Urine Mucus (None) /hpf Diabetes panel 02/04/21 02/05/21 Range/Units 10:47 07:21 Sodium 138 140 (137-145) mmol/L Potassium 3.6 3.8 (3.5-5.1) mmol/L Chloride 105 108 H (98-107) mmol/L Carbon Dioxide 25 24 (22-30) mmol/L BUN 24 H 28 H (9-20) mg/dL Creatinine 2.39 H 2.55 H (0.66-1.25) mg/dL Glucose 119 H 93 (74-99) mg/dL Calcium 8.8 8.1 L (8.4-10.2) mg/dL AST 23 (17-59) U/L ALT 15 (4-49) U/L Alkaline Phosphatase 70 (38-126) U/L Total Protein 6.6 (6.3-8.2) g/dL Albumin 3.9 (3.5-5.0) g/dL Calcium panel 02/04/21 02/05/21 Range/Units 10:47 07:21 Calcium 8.8 8.1 L (8.4-10.2) mg/dL Albumin 3.9 (3.5-5.0) g/dL Pituitary panel 02/04/21 02/05/21 Range/Units 10:47 07:21 Sodium 138 140 (137-145) mmol/L Potassium 3.6 3.8 (3.5-5.1) mmol/L Chloride 105 108 H (98-107) mmol/L Carbon Dioxide 25 24 (22-30) mmol/L BUN 24 H 28 H (9-20) mg/dL Creatinine 2.39 H 2.55 H (0.66-1.25) mg/dL Glucose 119 H 93 (74-99) mg/dL Calcium 8.8 8.1 L (8.4-10.2) mg/dL Adrenal panel 02/04/21 02/05/21 Range/Units 10:47 07:21 Sodium 138 140 (137-145) mmol/L Potassium 3.6 3.8 (3.5-5.1) mmol/L Chloride 105 108 H (98-107) mmol/L Carbon Dioxide 25 24 (22-30) mmol/L BUN 24 H 28 H (9-20) mg/dL Creatinine 2.39 H 2.55 H (0.66-1.25) mg/dL Glucose 119 H 93 (74-99) mg/dL Calcium 8.8 8.1 L (8.4-10.2) mg/dL Total Bilirubin 0.4 (0.2-1.3) mg/dL AST 23 (17-59) U/L ALT 15 (4-49) U/L Alkaline Phosphatase 70 (38-126) U/L Total Protein 6.6 (6.3-8.2) g/dL Albumin 3.9 (3.5-5.0) g/dL - Imaging CT scan - chest: report reviewed, image reviewed Assessment and Plan (1) Microhematuria Current Visit: Yes Status: Acute Code(s): R31.29 - OTHER MICROSCOPIC HEMATURIA SNOMED Code(s): 532990714 Plan: The significance of the microhematuria is questionable given that it was a catheterized urine specimen. The CT scan of the chest shows the upper half of the kidneys. He has a small right upper pole renal calculus, as well as a mid pole right renal cyst. Given that he underwent cystoscopy 2-3 months ago, I do not feel that any further evaluation is warranted. He was given my card to follow up as needed. Pleasant notify me if I can be of any further assistance. Time with Patient: Less than 30
--- NOTE | 2021-02-05 10:49 | P.PN ---
Subjective Progress Note Date: 02/05/21 Principal diagnosis: Acute hypoxic respiratory failure Right-sided pneumonia likely community-acquired pneumonia involving right upper lobe and right lower lobe Acute exacerbation of heart failure likely chronic systolic heart failure Small bilateral pleural effusion more so on the left side compared to right side Ischemic cardiomyopathy Chronic atrial fibrillation on anticoagulation 02/05/2021, patient seen eval examined during the rounds labs reviewed medications reviewed care plan discussed, respiratory status improved a bit from yesterday still short of breath, not producing any sputum, denies any chest pain computed tomography scan of the chest has been reviewed, patient noted to have extensive bilateral emphysematous changes along with a small to moderate left- sided pleural effusion, groundglass attenuation noted infiltrative findings in the lingula lobe, also on the right side there is nodular infiltrate in the right middle lobe, likely suggestive of pneumonia neoplasm less likely however but cannot be excluded, patient will need long-term follow-up with a short-term computed tomography scan as outpatient after treatment of pneumonia Patient is a pleasant 85-year-old male with history of cardiomyopathy and ischemic status post history of stent placement in the past 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, patient came into the hospital with several days history of increase wet cough and congestion associated with white to yellow sputum production 2 days ago developed increasing shortness of breath, also chills, presented to emergency department found to have a fever, patient is been having off-and-on chest pain since yesterday without any significant relief with nitro, patient is status post vaccination with: Vaccine, review of the data revealed that patient is on diuretic anticoagulation with oral anticoagulant also antiarrhythmic agents with amiodarone and Lasix, patient recalls cardiac cath and angiogram in the past with 2 stent placement one was done at [facility], he is unaware of his ejection fraction, his prior history significant for the in addition to above seizure disorder, dyslipidemia, chronic atrial fibrillation, prostate and bladder cancer, patient does have a remote history of smoking in the past quit several years ago Patient on arrival slightly hypertensive with fever of 100.4, sats were 93% on supplemental oxygen with 2 L, white cell count is elevated to 26,000, BUN/creatinine 24 and 2.39, patient has been started on IV Rocephin with Zithromax, chest x-ray significant for developing right lower lobe and right upper lobe infiltrate, small bilateral pleural effusion more so on the left side compared right side, Objective - Vital Signs Vital signs: Vital Signs Temp 97.8 F 02/05/21 03:32 Pulse 60 02/05/21 08:00 Resp 16 02/05/21 08:00 BP 119/56 02/05/21 08:00 Pulse Ox 96 02/05/21 08:07 Intake & Output 02/04/21 02/05/21 02/05/21 18:59 06:59 18:59 Intake Total 20 250 Balance 20 250 Weight 81.647 kg 67.7 kg Intake: IV 20 10 Invasive Line 1 20 10 Oral 240 Other: Voiding Method Diaper Diaper # Voids 3 - Exam - Constitutional General appearance: average body habitus, cooperative, disheveled - EENT Eyes: EOMI, PERRLA Ears: bilateral: normal - Neck Neck: normal ROM Carotids: bilateral: upstroke normal Thyroid: bilateral: normal size - Respiratory Respiratory: bilateral: rales (With bronchial breath sounds bilaterally) - Cardiovascular Rhythm: regular Heart sounds: normal: S1, S2 - Gastrointestinal General gastrointestinal: normal bowel sounds - Integumentary Integumentary: normal - Neurologic Neurologic: CNII-XII intact - Musculoskeletal Musculoskeletal: gait normal, generalized weakness, strength equal bilaterally - Psychiatric Psychiatric: A&O x's 3, appropriate affect, intact judgment & insight - Labs CBC & Chem 7: 02/05/21 07:21 02/05/21 07:21 Labs: Abnormal Lab Results - Last 24 Hours (Table) 02/04/21 02/04/21 02/04/21 Range/Units 10:47 10:47 12:35 WBC 26.1 H (3.8-10.6) k/uL RBC 3.90 L (4.30-5.90) m/uL Hgb 9.4 L (13.0-17.5) gm/dL Hct 30.2 L (39.0-53.0) % MCV 77.4 L (80.0-100.0) fL MCH 24.2 L (25.0-35.0) pg RDW 15.6 H (11.5-15.5) % Plt Count 118 L (150-450) k/uL Neutrophils # 23.1 H (1.3-7.7) k/uL Lymphocytes # 0.3 L (1.0-4.8) k/uL Monocytes # 2.2 H (0-1.0) k/uL Chloride (98-107) mmol/L BUN 24 H (9-20) mg/dL Creatinine 2.39 H (0.66-1.25) mg/dL Glucose 119 H (74-99) mg/dL Calcium (8.4-10.2) mg/dL Procalcitonin (0.02-0.09) ng/mL Urine Protein Trace H (Negative) Urine Blood Moderate H (Negative) Urine RBC 57 H (0-5) /hpf Amorphous Sediment Rare H (None) /hpf Urine Mucus Rare H (None) /hpf 02/05/21 02/05/21 02/05/21 Range/Units 07:21 07:21 07:21 WBC (3.8-10.6) k/uL RBC 3.45 L (4.30-5.90) m/uL Hgb 8.8 L (13.0-17.5) gm/dL Hct 27.2 L (39.0-53.0) % MCV 78.8 L (80.0-100.0) fL MCH (25.0-35.0) pg RDW (11.5-15.5) % Plt Count 91 L (150-450) k/uL Neutrophils # (1.3-7.7) k/uL Lymphocytes # 0.5 L (1.0-4.8) k/uL Monocytes # (0-1.0) k/uL Chloride 108 H (98-107) mmol/L BUN 28 H (9-20) mg/dL Creatinine 2.55 H (0.66-1.25) mg/dL Glucose (74-99) mg/dL Calcium 8.1 L (8.4-10.2) mg/dL Procalcitonin 4.66 H (0.02-0.09) ng/mL Urine Protein (Negative) Urine Blood (Negative) Urine RBC (0-5) /hpf Amorphous Sediment (None) /hpf Urine Mucus (None) /hpf Assessment and Plan Assessment: Acute hypoxic respiratory failure Right-sided pneumonia likely community-acquired pneumonia involving middle lobe with nodular appearance neoplasm however cannot be excluded Left-sided lingular lobe pneumonia Left-sided pleural effusion Acute exacerbation of heart failure likely chronic systolic heart failure Small bilateral pleural effusion more so on the left side compared to right side Ischemic cardiomyopathy Chronic atrial fibrillation on anticoagulation Plan: Continue supplemental oxygen Broad-spectrum antibiotics with Rocephin and Zithromax Reviewed computed tomography scan with findings as noted above Cardiovascular evaluation prior cardiovascular services Continue current plan of care with treatment with antibiotics patient will need short-term computed tomography scan as outpatient after 6-8 weeks of therapy Time with Patient: Greater than 30
--- NOTE | 2021-02-05 13:35 | P.PN ---
Subjective This is a pleasant 85 years old male with past medical history of hypertension, hyperlipidemia, atrial fibrillation and seizure disorder, he has history of prostate and bladder cancer. Patient states he presents because of dyspnea wanted days duration associated with cough and clear phlegm and some chest tightness rather than pain. No abdominal pain or nausea vomiting or diarrhea. However patient complaining of from right leg pain with no history of fall Patient has fever of 100.4 on admission, his vitals stable. Laboratory showing leukocytosis with WBC 26.20. Hemoglobin 9.4, platelet count is low as 118. INR is normal. Creatinine is 2.3 which is at baseline Urinalysis showing moderate blood and hematuria Coronary first not detected. Chest x-ray showing right lower and upper lobe infiltrate Patient was started on Rocephin and Zithromax. 02/05/2021 Patient breathing looks better today. Patient is not coughing. No chest pain. He is saturating well on 2 L oxygen via nasal cannula, it looks like his pneumonia is improving. However this morning patient vomited one time, no good appetite and he had no bowel movement. In short is started for him. Blood pressure is better controlled after increasing dose of Imdur 30 up to 60 mg and at index is seen at night. looks improvement with WBC, hemoglobin and platelets are trending down. Actually WBCs back to normal today. Creatinine 2.5 to close to baseline of 2.1., Most likely it's chronic kidney disease. procalcitonin is 4.6 Neurology input is appreciated, no further workup and follow-up outpatient as needed CT of the chest showing any areas of ground glass opacity that could reflect multifocal infectious process. Suspect mild degree of alveolar and interstitial edema on background infectious process. Areas of nodularity are concerning short-term follow-up CT is advised. Patient informed about his nodule. Discussed the case with the pulmonary service, most likely pneumonia but cancer cannot be entirely excluded for now, however he will need as outpatient monitoring Objective - Vital Signs Vital signs: Vital Signs Temp 98.3 F 02/05/21 12:00 Pulse 56 L 02/05/21 12:00 Resp 16 02/05/21 12:00 BP 120/59 02/05/21 12:00 Pulse Ox 94 L 02/05/21 12:00 Intake & Output 02/04/21 02/05/21 02/05/21 18:59 06:59 18:59 Intake Total 20 490 Balance 20 490 Weight 81.647 kg 67.7 kg Intake: IV 20 10 Invasive Line 1 20 10 Oral 480 Other: Voiding Method Diaper Diaper # Voids 3 - Exam GENERAL: The patient is alert and oriented x3, not in any acute distress. Well developed, well nourished. HEENT: Pupils are round and equally reacting to light. EOMI. No scleral icterus. No conjunctival pallor. Normocephalic, atraumatic. No pharyngeal erythema. No thyromegaly. CARDIOVASCULAR: S1 and S2 present. No murmurs, rubs, or gallops. PULMONARY: Chest is clear to auscultation, no wheezing or crackles. ABDOMEN: Soft, nontender, nondistended, normoactive bowel sounds. No palpable organomegaly. MUSCULOSKELETAL: No joint swelling or deformity. EXTREMITIES: No cyanosis, clubbing, or pedal edema. NEUROLOGICAL: Gross neurological examination did not reveal any focal deficits. SKIN: No rashes. No petechiae - Labs CBC & Chem 7: 02/05/21 07:21 02/05/21 07:21 Labs: Abnormal Lab Results - Last 24 Hours (Table) 02/05/21 02/05/21 02/05/21 Range/Units 07:21 07:21 07:21 RBC 3.45 L (4.30-5.90) m/uL Hgb 8.8 L (13.0-17.5) gm/dL Hct 27.2 L (39.0-53.0) % MCV 78.8 L (80.0-100.0) fL Plt Count 91 L (150-450) k/uL Lymphocytes # 0.5 L (1.0-4.8) k/uL Chloride 108 H (98-107) mmol/L BUN 28 H (9-20) mg/dL Creatinine 2.55 H (0.66-1.25) mg/dL Calcium 8.1 L (8.4-10.2) mg/dL Procalcitonin 4.66 H (0.02-0.09) ng/mL Microbiology - Last 24 Hours (Table) 02/04/21 10:46 Blood Culture - Preliminary Blood No Growth after 24 hours 02/04/21 10:45 Blood Culture - Preliminary Blood No Growth after 24 hours Assessment and Plan Assessment: Right upper lobe pneumonia, mostly community acquired pneumonia Sepsis secondary to stop with leukocytosis and fever. Acute hematuria, mostly secondary to Cruz catheter and kidney stone. No further workup Right hip pain. Hip x-ray: No acute process Hypertension Hyperlipidemia Atrial fibrillation History of seizure disorder History of prostate and bladder cancer Chronic kidney disease, stage IV Plan: This is a pleasant 85 years old male who presents with right pneumonia. Continue with ceftriaxone and Rocephin. Pulmonary consult. Follow up outpatient for long nodule with Dr. Gates Labs and medication were reviewed.. Continue same treatment. Continue with symptomatic treatment. Resume home medication. Monitor lytes and vitals. DVT and GI prophylaxis. Further recommendations depends on the clinical course of the patient DVT prophylaxis: Patient was on Eliquis at home GI Prophylaxis: Pepcid PT/OT: Pending Prognosis is guarded
[2021-02-05] MEDS: FERROUS SULFATE 325 MG TAB PO SCH (15:39)
[2021-02-05] MEDS: ATORVASTATIN 40 MG TAB PO SCH (15:39)
[2021-02-05] MEDS: PANTOPRAZOLE 40 MG TABLET PO SCH (15:40)
[2021-02-06] MEDS: ACETAMINOPHEN TAB 325 MG TAB PO PRN ×3 (03:37→19:47)
[2021-02-06] MEDS: amLODIPine 5 MG TAB PO SCH (05:38)
[2021-02-06] MEDS: ASPIRIN 81 MG PO SCH (05:38)
[2021-02-06] MEDS: carvediloL 6.25 MG TAB PO SCH (05:38)
[2021-02-06] MEDS: ONDANSETRON 4 MG/2 ML VIAL IVP PRN (05:40)
[2021-02-06] MEDS: AMIODARONE 100 MG TAB PO SCH (06:26)
[2021-02-06] MEDS: ISOSORBIDE MONONITRATE ER 30 MG TAB.ER.24H PO SCH (06:27)
[2021-02-06 07:55] LABS: Basophils % (A) 0 %; Eosinophils % (A) 0 %; HCT 25.9 % (39.0-53.0); HGB 8.2 gm/dL (13.0-17.5); Hypochromasia Moderate; Lymphocytes # (A) 0.4 k/uL (1.0-4.8); Lymphocytes % (A) 5 %; MCH 25.5 pg (25.0-35.0); MCHC 31.7 g/dL (31.0-37.0); MCV 80.4 fL (80.0-100.0); Mean Platelet Volume 9.5; Monocytes # (A) 0.7 k/uL (0-1.0); Monocytes % (A) 9 %; Neutrophils # (A) 6.4 k/uL (1.3-7.7); Neutrophils % (A) 82 %; RBC 3.23 m/uL (4.30-5.90); RDW 15.4 % (11.5-15.5); WBC 7.7 k/uL (3.8-10.6)
[2021-02-06 08:09] LABS: Potassium 4.1 mmol/L (3.5-5.1)
[2021-02-06 08:11] LABS: Platelet Count 74 k/uL (150-450)
[2021-02-06] MEDS ORDERED: FUROSEMIDE 40 MG TAB PO SCH (09:00)
--- NOTE | 2021-02-06 09:31 | P.PN ---
Subjective This is a pleasant 85 years old male with past medical history of hypertension, hyperlipidemia, atrial fibrillation and seizure disorder, he has history of prostate and bladder cancer. Patient states he presents because of dyspnea wanted days duration associated with cough and clear phlegm and some chest tightness rather than pain. No abdominal pain or nausea vomiting or diarrhea. However patient complaining of from right leg pain with no history of fall Patient has fever of 100.4 on admission, his vitals stable. Laboratory showing leukocytosis with WBC 26.20. Hemoglobin 9.4, platelet count is low as 118. INR is normal. Creatinine is 2.3 which is at baseline Urinalysis showing moderate blood and hematuria Coronary first not detected. Chest x-ray showing right lower and upper lobe infiltrate Patient was started on Rocephin and Zithromax. 02/05/2021 Patient breathing looks better today. Patient is not coughing. No chest pain. He is saturating well on 2 L oxygen via nasal cannula, it looks like his pneumonia is improving. However this morning patient vomited one time, no good appetite and he had no bowel movement. In short is started for him. Blood pressure is better controlled after increasing dose of Imdur 30 up to 60 mg and at index is seen at night. looks improvement with WBC, hemoglobin and platelets are trending down. Actually WBCs back to normal today. Creatinine 2.5 to close to baseline of 2.1., Most likely it's chronic kidney disease. procalcitonin is 4.6 Neurology input is appreciated, no further workup and follow-up outpatient as needed CT of the chest showing any areas of ground glass opacity that could reflect multifocal infectious process. Suspect mild degree of alveolar and interstitial edema on background infectious process. Areas of nodularity are concerning short-term follow-up CT is advised. Patient informed about his nodule. Discussed the case with the pulmonary service, most likely pneumonia but cancer cannot be entirely excluded for now, however he will need as outpatient monitoring 02/06/2021 Patient breathing cuevas states his the same with exertion however address he randee es any dyspnea. He has poor appetite however he is using Ensure, no vomiting he has a bowel movement. His hematuria resolved. Patient still wants to go home however medically he is not.. His blood pressure is still elevated 176/76 after at index Zosyn and Imdur, we will keep monitoring for now. His hemoglobin and platelets slightly trending down to 8.2 and 70 4K respectively. No leukocytosis. Creatinine is trending 2.3, 2.5 and 2.7. We will check a bladder scan, consult nephrology service. Remains on ceftriaxone and Zithromax antibiotics. Physical therapy is pending Echocardiogram is pending Objective - Vital Signs Vital signs: Vital Signs Temp 98.0 F 02/06/21 04:00 Pulse 96 02/06/21 04:00 Resp 16 02/06/21 04:00 BP 176/76 02/06/21 04:00 Pulse Ox 93 L 02/06/21 04:00 Intake & Output 02/05/21 02/06/21 02/06/21 18:59 06:59 18:59 Intake Total 1390 10 Balance 1390 10 Weight 67.9 kg Intake: IV 20 10 Invasive Line 1 20 10 Intake, IV Titration 50 Amount cefTRIAXone 2 gm In 50 Sodium Chloride 0.9% 50 ml @ 100 mls/hr IVPB Q24HR [facility] Rx#:[id number] Oral 1320 Other: Voiding Method Diaper Diaper # Voids 3 - Exam GENERAL: The patient is alert and oriented x3, not in any acute distress. Well developed, well nourished. HEENT: Pupils are round and equally reacting to light. EOMI. No scleral icterus. No conjunctival pallor. Normocephalic, atraumatic. No pharyngeal erythema. No thyromegaly. CARDIOVASCULAR: S1 and S2 present. No murmurs, rubs, or gallops. PULMONARY: Chest is clear to auscultation, no wheezing or crackles. ABDOMEN: Soft, nontender, nondistended, normoactive bowel sounds. No palpable organomegaly. MUSCULOSKELETAL: No joint swelling or deformity. EXTREMITIES: No cyanosis, clubbing, or pedal edema. NEUROLOGICAL: Gross neurological examination did not reveal any focal deficits. SKIN: No rashes. No petechiae - Labs CBC & Chem 7: 02/06/21 06:54 02/06/21 06:54 Labs: Abnormal Lab Results - Last 24 Hours (Table) 02/05/21 02/06/21 02/06/21 Range/Units 07:21 06:54 06:54 RBC 3.23 L (4.30-5.90) m/uL Hgb 8.2 L (13.0-17.5) gm/dL Hct 25.9 L (39.0-53.0) % Plt Count 74 L (150-450) k/uL Lymphocytes # 0.4 L (1.0-4.8) k/uL Chloride 108 H (98-107) mmol/L BUN 35 H (9-20) mg/dL Creatinine 2.79 H (0.66-1.25) mg/dL Glucose 120 H (74-99) mg/dL Calcium 8.0 L (8.4-10.2) mg/dL Procalcitonin 4.66 H (0.02-0.09) ng/mL Microbiology - Last 24 Hours (Table) 02/04/21 10:46 Blood Culture - Preliminary Blood No Growth after 24 hours 02/04/21 10:45 Blood Culture - Preliminary Blood No Growth after 24 hours Assessment and Plan Assessment: Right upper lobe pneumonia, mostly community acquired pneumonia Sepsis secondary to stop with leukocytosis and fever. Acute Kidney injury Anemia with trending down hemoglobin Low appetite secondary to above Acute hematuria, mostly secondary to Cruz catheter and kidney stone. No further workup Right hip pain. Hip x-ray: No acute process Hypertension Hyperlipidemia Atrial fibrillation History of seizure disorder History of prostate and bladder cancer Chronic kidney disease, stage IV Plan: This is a pleasant 85 years old male who presents with right pneumonia. Continue with ceftriaxone and Rocephin. Pulmonary consult. Follow up outpa tient for long nodule with Dr. Gates Consult nephrology for worsening creatinine, check a bladder scan. Patient are not limited and he is on Lasix every 48 hours. we will do anemia workup Labs and medication were reviewed.. Continue same treatment. Continue with symptomatic treatment. Resume home medication. Monitor lytes and vitals. DVT and GI prophylaxis. Further recommendations depends on the clinical course of the patient DVT prophylaxis: Patient was on Eliquis at home GI Prophylaxis: Pepcid PT/OT: Pending Prognosis is guarded
[2021-02-06] MEDS: AZITHROMYCIN 500 MG TAB PO SCH (09:58)
[2021-02-06] MEDS: hydrALAZINE HCL 50 MG TAB PO SCH ×3 (09:59→21:00)
--- NOTE | 2021-02-06 11:23 | P.PN ---
Subjective Progress Note Date: 02/06/21 Principal diagnosis: Acute hypoxic respiratory failure Right-sided pneumonia likely community-acquired pneumonia involving right upper lobe and right lower lobe Acute exacerbation of heart failure likely chronic systolic heart failure Small bilateral pleural effusion more so on the left side compared to right side Ischemic cardiomyopathy Chronic atrial fibrillation on anticoagulation 02/06/2021, patient seen eval examined Estrace status improved now denies any cough or sputum production, denies any chest pain patient is on room air now, patient is getting therapy for pneumonia I have explained the patient about computed tomography scan finding, plan to get an another short-term computed tomography scan as outpatient if patient discharged home recommend on oral anti biotics with follow-up in the office 02/05/2021, patient seen eval examined during the rounds labs reviewed medications reviewed care plan discussed, respiratory status improved a bit from yesterday still short of breath, not producing any sputum, denies any chest pain computed tomography scan of the chest has been reviewed, patient noted to have extensive bilateral emphysematous changes along with a small to moderate left- sided pleural effusion, groundglass attenuation noted infiltrative findings in the lingula lobe, also on the right side there is nodular infiltrate in the right middle lobe, likely suggestive of pneumonia neoplasm less likely however but cannot be excluded, patient will need long-term follow-up with a short-term computed tomography scan as outpatient after treatment of pneumonia Patient is a pleasant 85-year-old male with history of cardiomyopathy and ischemic status post history of stent placement in the past 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, patient came into the hospital with several days history of increase wet cough and congestion associated with white to yellow sputum production 2 days ago developed increasing shortness of breath, also chills, presented to emergency department found to have a fever, patient is been having off-and-on chest pain since yesterday without any significant relief with nitro, patient is status post vaccination with: Vaccine, review of the data revealed that patient is on diuretic anticoagulation with oral anticoagulant also antiarrhythmic agents with amiodarone and Lasix, patient recalls cardiac cath and angiogram in the past with 2 stent placement one was done at [facility], he is unaware of his ejection fraction, his prior history significant for the in addition to above seizure disorder, dyslipidemia, chronic atrial fibrillation, prostate and bladder cancer, patient does have a remote history of smoking in the past quit several years ago Patient on arrival slightly hypertensive with fever of 100.4, sats were 93% on supplemental oxygen with 2 L, white cell count is elevated to 26,000, BUN/cre atinine 24 and 2.39, patient has been started on IV Rocephin with Zithromax, chest x-ray significant for developing right lower lobe and right upper lobe infiltrate, small bilateral pleural effusion more so on the left side compared right side, Objective - Vital Signs Vital signs: Vital Signs Temp 97.9 F 02/06/21 08:00 Pulse 86 02/06/21 08:00 Resp 18 02/06/21 08:00 BP 156/70 02/06/21 08:00 Pulse Ox 93 L 02/06/21 08:00 Intake & Output 02/05/21 02/06/21 02/06/21 18:59 06:59 18:59 Intake Total 1390 10 Balance 1390 10 Weight 67.9 kg Intake: IV 20 10 Invasive Line 1 20 10 Intake, IV Titration 50 Amount cefTRIAXone 2 gm In 50 Sodium Chloride 0.9% 50 ml @ 100 mls/hr IVPB Q24HR [facility] Rx#:[id number] Oral 1320 Other: Voiding Method Diaper Diaper # Voids 3 - Exam - Constitutional General appearance: average body habitus, cooperative, disheveled - EENT Eyes: EOMI, PERRLA Ears: bilateral: normal - Neck Neck: normal ROM Carotids: bilateral: upstroke normal Thyroid: bilateral: normal size - Respiratory Respiratory: bilateral: rales (With bronchial breath sounds bilaterally) - Cardiovascular Rhythm: regular Heart sounds: normal: S1, S2 - Gastrointestinal General gastrointestinal: normal bowel sounds - Integumentary Integumentary: normal - Neurologic Neurologic: CNII-XII intact - Musculoskeletal Musculoskeletal: gait normal, generalized weakness, strength equal bilaterally - Psychiatric Psychiatric: A&O x's 3, appropriate affect, intact judgment & insight - Labs CBC & Chem 7: 02/06/21 06:54 02/06/21 06:54 Labs: Abnormal Lab Results - Last 24 Hours (Table) 02/06/21 02/06/21 Range/Units 06:54 06:54 RBC 3.23 L (4.30-5.90) m/uL Hgb 8.2 L (13.0-17.5) gm/dL Hct 25.9 L (39.0-53.0) % Plt Count 74 L (150-450) k/uL Lymphocytes # 0.4 L (1.0-4.8) k/uL Chloride 108 H (98-107) mmol/L BUN 35 H (9-20) mg/dL Creatinine 2.79 H (0.66-1.25) mg/dL Glucose 120 H (74-99) mg/dL Calcium 8.0 L (8.4-10.2) mg/dL Microbiology - Last 24 Hours (Table) 02/04/21 10:46 Blood Culture - Preliminary Blood No Growth after 24 hours 02/04/21 10:45 Blood Culture - Preliminary Blood No Growth after 24 hours Assessment and Plan Assessment: Acute hypoxic respiratory failure Right-sided pneumonia likely community-acquired pneumonia involving middle lobe with nodular appearance neoplasm however cannot be excluded Left-sided lingular lobe pneumonia Left-sided pleural effusion Acute exacerbation of heart failure likely chronic systolic heart failure Small bilateral pleural effusion more so on the left side compared to right side Ischemic cardiomyopathy Chronic atrial fibrillation on anticoagulation Plan: Continue supplemental oxygen Broad-spectrum antibiotics with Rocephin and Zithromax, can be switched to oral at the time of this Reviewed computed tomography scan with findings as noted above Cardiovascular evaluation prior cardiovascular services Continue current plan of care with treatment with antibiotics patient will need short-term computed tomography scan as outpatient after 6-8 weeks of therapy Time with Patient: Greater than 30
[2021-02-06] MEDS ORDERED: FUROSEMIDE 10 MG/ML 4 ML VIAL IV STA (12:07)
--- NOTE | 2021-02-06 12:12 | P.NPCON ---
History of Present Illness - Reason for Consult acute renal failure, chronic renal failure - History of Present Illness Reason for consultation: Acute kidney injury on chronic kidney disease History of present illness: Patient is a 85-year-old male seen in renal consultation for acute kidney injury on chronic kidney disease. Patient's creatinine in August 2019 was 2.1. This admission was 2.39 and is up to 2.79 today. Patient does follow with a drug abuse program coordinator out of town and states he's been told of a week kidneys but is unsure as to what his baseline renal function is. Patient presented to the [facility] with shortness of breath. He is currently being treated for pneumonia. He does have a productive cough with brown phlegm. He does have history of coronary artery disease and is [address] No history of diabetes. No vomiting or diarrhea. Denies use of nonsteroidals. Oral intake is fair. He is currently maintained on oral Lasix every other day but states he takes Lasix daily at home. Echocardiogram is pending. No hematuria or dysuria. Hemodynamically stable. Vital signs are stable. General: The patient appeared well nourished and normally developed. HEENT: Currently on nasal cannula. LUNGS: Breath sounds decreased. HEART: Rate and Rhythm are regular. ABDOMEN: Soft, nontender. EXTREMITITES: No edema. Past Medical History Past Medical History: Atrial Fibrillation, Cancer, Hyperlipidemia, Hypertension, Seizure Disorder Additional Past Medical History / Comment(s): bladder CA Prostate CA History of Any Multi-Drug Resistant Organisms: None Reported Past Surgical History: Bladder Surgery, Prostate Surgery Past Psychological History: No Psychological Hx Reported Smoking Status: Former smoker Past Alcohol Use History: None Reported Past Drug Use History: None Reported Medications and Allergies Home Medications Medication Instructions Recorded Confirmed Type Aspirin EC [Ecotrin Low Dose] 81 mg PO DAILY@0600 08/20/19 02/04/21 History Atorvastatin [Lipitor] 40 mg PO DAILY@1500 08/20/19 02/04/21 History Ferrous Sulfate [Feosol] 325 mg PO DAILY@1500 08/20/19 02/04/21 History Furosemide [Lasix] 40 mg PO Q48H 08/20/19 02/04/21 History HYDROcodone/APAP 10-325MG [Zarephath 1 tab PO BID PRN 08/20/19 02/04/21 History 10-325] Nitroglycerin Sl Tabs [Nitrostat] 0.4 mg SL Q5M PRN 08/20/19 02/04/21 History Pantoprazole Sodium [Protonix] 40 mg PO DAILY@1500 08/20/19 02/04/21 History amLODIPine [Norvasc] 5 mg PO DAILY@0600 08/20/19 02/04/21 History hydrALAZINE HCL [Apresoline] 100 mg PO TID 08/20/19 02/04/21 History Amiodarone [Cordarone] 100 mg PO DAILY@0602/04/21 02/04/21 History Carvedilol [Coreg] 6.25 mg PO DAILY@0602/04/21 02/04/21 History Isosorbide Mononitrate ER [Imdur] 30 mg PO DAILY@59902/04/21 02/04/21 History Allergies Allergy/AdvReac Type Severity Reaction Status Date / Time No Known Allergies Allergy Verified 02/04/21 14:01 Physical Exam Vitals: Vital Signs Temp Pulse Resp BP Pulse Ox 02/06/21 08:00 97.9 F 86 18 156/70 93 L 02/06/21 04:00 98.0 F 96 16 176/76 93 L 02/06/21 00:00 98.1 F 71 16 145/73 95 02/05/21 20:00 98.0 F 70 16 148/77 98 02/05/21 15:36 98.0 F 60 16 145/67 97 02/05/21 14:00 56 L 16 Intake and Output 02/05/21 02/06/21 02/06/21 22:59 06:59 14:59 Intake Total 900 Balance 900 Intake: IV 10 Invasive Line 1 10 Intake, IV Titration 50 Amount cefTRIAXone 2 gm In 50 Sodium Chloride 0.9% 50 ml @ 100 mls/hr IVPB Q24HR [facility] Rx#:[id number] Oral 840 Other: Voiding Method Diaper Diaper # Voids 3 Weight 67.9 kg Results - Lab Results Most recent lab results Calcium 8.0 mg/dL (8.4-10.2) L 02/06/21 06:54 Magnesium 2.3 mg/dL (1.6-2.3) 02/05/21 07:21 02/06/21 06:54 02/06/21 06:54 Assessment and Plan Plan: Assessment: 1. Acute kidney injury secondary to ATN secondary to infection. Creatinine 2.79 today. Trace proteinuria on UA. 2. Chronic kidney disease stage IV. Creatinine in August 2019 was 2.1. Patient follows with a drug abuse program coordinator out of town. Etiology is nephrosclerosis. 3. Pneumonia maintained on antibiotics. 4. Coronary artery disease status post cardiac stenting. 5. Anemia of chronic kidney disease. Rule out iron deficiency. 6. Hypertension with chronic kidney disease. Stable. 7. Volume overload. Plan: Lasix 40 mg IV once today. Check iron studies. Add Aranesp. Quantify proteinuria. Check renal ultrasound. Avoid nephrotoxins. Continue to monitor renal function and urine output. Thank you for the consultation. I will continue to follow this patient with you during his hospital stay.
[2021-02-06] MEDS ORDERED: DARBEPOETIN ALFA 40 MCG/0.4 ML SYRINGE SQ SCH (12:30)
[2021-02-06 14:42] LABS: Ferritin 77.2 ng/mL (22.0-322.0)
[2021-02-06 14:43] LABS: Folate, Serum 9.3 ng/mL
[2021-02-06 14:50] LABS: % Iron Saturation 8.4 (15.00-50.00)
[2021-02-06] MEDS: PANTOPRAZOLE 40 MG TABLET PO SCH (16:06)
[2021-02-06] MEDS: FERROUS SULFATE 325 MG TAB PO SCH (16:06)
[2021-02-06] MEDS: ATORVASTATIN 40 MG TAB PO SCH (16:06)
--- NOTE | 2021-02-06 16:45 | US ---
EXAMINATION TYPE: US kidneys/renal and bladder DATE OF EXAM: 02/06/2021 COMPARISON: NONE CLINICAL HISTORY: [place]. EXAM MEASUREMENTS: Right Kidney: 9.4 x 5.2 x 4.9 cm Left Kidney: 9.9 x 5.3 x 5.1 cm Right Kidney: Loss of corticomedullary differentiation with increased cortical echogenicity. Cyst aly suring 2.9 x 2.6 x 2.6 cm Left Kidney: Loss of corticomedullary differentiation with increased cortical echogenicity. Cyst chris uring 1.0 x 0.8 x 1.0 cm Bladder: Not distended There is no evidence for hydronephrosis at this point in time. No nephrolithiasis is seen. IMPRESSION: Findings consistent with underlying medical renal disease
[2021-02-06] MEDS: IPRATROPIUM-ALBUTEROL 3 ML NEB INHALATION PRN (20:13)
[2021-02-06] MEDS: DOXAZOSIN 2 MG TAB PO SCH (20:59)
[2021-02-06] MEDS: HYDROcodone/APAP 10-325MG 1 EACH TAB PO PRN (21:00)
[2021-02-07] MEDS: ACETAMINOPHEN TAB 325 MG TAB PO PRN ×2 (02:48→17:54)
[2021-02-07] MEDS: ISOSORBIDE MONONITRATE ER 30 MG TAB.ER.24H PO SCH (06:18)
[2021-02-07] MEDS: AMIODARONE 100 MG TAB PO SCH (06:18)
[2021-02-07] MEDS: ASPIRIN 81 MG PO SCH (06:18)
[2021-02-07] MEDS: amLODIPine 5 MG TAB PO SCH (06:19)
[2021-02-07] MEDS: carvediloL 6.25 MG TAB PO SCH (06:19)
[2021-02-07 08:01] LABS: Basophils % (A) 0 %; Eosinophils % (A) 0 %; HCT 24.5 % (39.0-53.0); Hypochromasia Slight; Lymphocytes # (A) 0.4 k/uL (1.0-4.8); Lymphocytes % (A) 6 %; MCH 26.2 pg (25.0-35.0); MCHC 32.8 g/dL (31.0-37.0); MCV 79.8 fL (80.0-100.0); Mean Platelet Volume 9.2; Monocytes # (A) 0.8 k/uL (0-1.0); Monocytes % (A) 13 %; Neutrophils # (A) 5.2 k/uL (1.3-7.7); Neutrophils % (A) 78 %; RBC 3.07 m/uL (4.30-5.90); RDW 15.4 % (11.5-15.5); WBC 6.7 k/uL (3.8-10.6)
[2021-02-07 08:11] LABS: Calcium 8.2 mg/dL (8.4-10.2); Magnesium 2.4 mg/dL (1.6-2.3); Potassium 3.7 mmol/L (3.5-5.1)
[2021-02-07 08:12] LABS: Platelet Count 71 k/uL (150-450)
[2021-02-07] MEDS: hydrALAZINE HCL 50 MG TAB PO SCH ×3 (08:59→21:39)
[2021-02-07] MEDS: AZITHROMYCIN 500 MG TAB PO SCH (08:59)
--- NOTE | 2021-02-07 10:19 | P.PN ---
Subjective Progress Note Date: 02/07/21 Principal diagnosis: Acute hypoxic respiratory failure Right-sided pneumonia likely community-acquired pneumonia involving right upper lobe and right lower lobe Acute exacerbation of heart failure likely chronic systolic heart failure Small bilateral pleural effusion more so on the left side compared to right side Ischemic cardiomyopathy Chronic atrial fibrillation on anticoagulation 02/07/2021, patient was started on bronchodilator due to wheezing, patient is being evaluated by nephrology for acute kidney injury likely related to ATN, 02/06/2021, patient seen eval examined Estrace status improved now denies any cough or sputum production, denies any chest pain patient is on room air now, patient is getting therapy for pneumonia I have explained the patient about computed tomography scan finding, plan to get an another short-term computed tomography scan as outpatient if patient discharged home recommend on oral antibiotics with follow-up in the office 02/05/2021, patient seen evdiomedes examined during the rounds labs reviewed medications reviewed care plan discussed, respiratory status improved a bit from yesterday still short of breath, not producing any sputum, denies any chest pain computed tomography scan of the chest has been reviewed, patient noted to have extensive bilateral emphysematous changes along with a small to moderate left- sided pleural effusion, groundglass attenuation noted infiltrative findings in the lingula lobe, also on the right side there is nodular infiltrate in the right middle lobe, likely suggestive of pneumonia neoplasm less likely however but cannot be excluded, patient will need long-term follow-up with a short-term computed tomography scan as outpatient after treatment of pneumonia Patient is a pleasant 85-year-old male with history of cardiomyopathy and ischemic status post history of stent placement in the past 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, patient came into the hospital with several days history of increase wet cough and congestion associated with white to yellow sputum production 2 days ago developed increasing shortness of breath, also chills, presented to emergency department found to have a fever, patient is been having off-and-on chest pain since yesterday without any significant relief with nitro, patient is status post vaccination with: Vaccine, review of the data revealed that patient is on diuretic anticoagulation with oral anticoagulant also antiarrhythmic agents with amiodarone and Lasix, patient recalls cardiac cath and angiogram in the past with 2 stent placement one was done at [facility], he is unaware of his ejection fraction, his prior history significant for the in addition to above seizure disorder, dyslipidemia, chronic atrial fibrillation, prostate and bladder cancer, patient does have a remote history of smoking in the past quit several years ago Patient on arrival slightly hypertensive with fever of 100.4, sats were 93% on supplemental oxygen with 2 L, white cell count is elevated to 26,000, BUN/creatinine 24 and 2.39, patient has been started on IV Rocephin with Zithromax, chest x-ray significant for developing right lower lobe and right u pper lobe infiltrate, small bilateral pleural effusion more so on the left side compared right side, Objective - Vital Signs Vital signs: Vital Signs Temp 98.5 F 02/07/21 08:00 Pulse 69 02/07/21 08:00 Resp 18 02/07/21 08:00 BP 132/50 02/07/21 08:00 Pulse Ox 94 L 02/07/21 08:00 Intake & Output 02/06/21 02/07/21 02/07/21 18:59 06:59 18:59 Intake Total 720 10 Balance 720 10 Weight 68.7 kg Intake: IV 10 Invasive Line 1 10 Oral 720 Other: Voiding Method Diaper Diaper # Voids 1 2 - Exam - Constitutional General appearance: average body habitus, cooperative, disheveled - EENT Eyes: EOMI, PERRLA Ears: bilateral: normal - Neck Neck: normal ROM Carotids: bilateral: upstroke normal Thyroid: bilateral: normal size - Respiratory Respiratory: bilateral: rales (With bronchial breath sounds bilaterally) - Cardiovascular Rhythm: regular Heart sounds: normal: S1, S2 - Gastrointestinal General gastrointestinal: normal bowel sounds - Integumentary Integumentary: normal - Neurologic Neurologic: CNII-XII intact - Musculoskeletal Musculoskeletal: gait normal, generalized weakness, strength equal bilaterally - Psychiatric Psychiatric: A&O x's 3, appropriate affect, intact judgment & insight - Labs CBC & Chem 7: 02/07/21 06:51 02/07/21 06:51 Labs: Abnormal Lab Results - Last 24 Hours (Table) 02/06/21 02/07/21 02/07/21 Range/Units 06:54 06:51 06:51 RBC 3.07 L (4.30-5.90) m/uL Hgb 8.0 L (13.0-17.5) gm/dL Hct 24.5 L (39.0-53.0) % MCV 79.8 L (80.0-100.0) fL Plt Count 71 L (150-450) k/uL Lymphocytes # 0.4 L (1.0-4.8) k/uL BUN 35 H (9-20) mg/dL Creatinine 2.72 H (0.66-1.25) mg/dL Glucose 116 H (74-99) mg/dL Calcium 8.2 L (8.4-10.2) mg/dL Magnesium 2.4 H (1.6-2.3) mg/dL Iron 21 L (65-175) ug/dL % Saturation 8.40 L (15.00-50.00) Vitamin B12 1296.0 H (200.0-944.0) pg/mL Microbiology - Last 24 Hours (Table) 02/06/21 08:41 Gram Stain - Preliminary Sputum Sputum Culture - Preliminary 02/04/21 10:45 Blood Culture - Preliminary Blood No Growth after 48 hours 02/04/21 10:46 Blood Culture - Preliminary Blood No Growth after 48 hours Assessment and Plan Assessment: Acute hypoxic respiratory failure Right-sided pneumonia likely community-acquired pneumonia involving middle lobe with nodular appearance neoplasm however cannot be excluded Left-sided lingular lobe pneumonia Left-sided pleural effusion Acute exacerbation of heart failure likely chronic systolic heart failure Small bilateral pleural effusion more so on the left side compared to right side Ischemic cardiomyopathy Chronic atrial fibrillation on anticoagulation Plan: Continue supplemental oxygen Broad-spectrum antibiotics with Rocephin and Zithromax, can be switched to oral at the time of this Reviewed computed tomography scan with findings as noted above Cardiovascular evaluation prior cardiovascular services Continue current plan of care with treatment with antibiotics patient will need short-term computed tomography scan as outpatient after 6-8 weeks of therapy Time with Patient: Greater than 30
--- NOTE | 2021-02-07 11:57 | P.PN ---
Subjective This is a pleasant 85 years old male with past medical history of hypertension, hyperlipidemia, atrial fibrillation and seizure disorder, he has history of prostate and bladder cancer. Patient states he presents because of dyspnea wanted days duration associated with cough and clear phlegm and some chest tightness rather than pain. No abdominal pain or nausea vomiting or diarrhea. However patient complaining of from right leg pain with no history of fall Patient has fever of 100.4 on admission, his vitals stable. Laboratory showing leukocytosis with WBC 26.20. Hemoglobin 9.4, platelet count is low as 118. INR is normal. Creatinine is 2.3 which is at baseline Urinalysis showing moderate blood and hematuria Coronary first not detected. Chest x-ray showing right lower and upper lobe infiltrate Patient was started on Rocephin and Zithromax. 02/05/2021 Patient breathing looks better today. Patient is not coughing. No chest pain. He is saturating well on 2 L oxygen via nasal cannula, it looks like his pneumonia is improving. However this morning patient vomited one time, no good appetite and he had no bowel movement. In short is started for him. Blood pressure is better controlled after increasing dose of Imdur 30 up to 60 mg and at index is seen at night. looks improvement with WBC, hemoglobin and platelets are trending down. Actually WBCs back to normal today. Creatinine 2.5 to close to baseline of 2.1., Most likely it's chronic kidney disease. procalcitonin is 4.6 Neurology input is appreciated, no further workup and follow-up outpatient as needed CT of the chest showing any areas of ground glass opacity that could reflect multifocal infectious process. Suspect mild degree of alveolar and interstitial edema on background infectious process. Areas of nodularity are concerning short-term follow-up CT is advised. Patient informed about his nodule. Discussed the case with the pulmonary service, most likely pneumonia but cancer cannot be entirely excluded for now, however he will need as outpatient monitoring 02/06/2021 Patient breathing cuevas states his the same with exertion however address he randee es any dyspnea. He has poor appetite however he is using Ensure, no vomiting he has a bowel movement. His hematuria resolved. Patient still wants to go home however medically he is not.. His blood pressure is still elevated 176/76 after at index Zosyn and Imdur, we will keep monitoring for now. His hemoglobin and platelets slightly trending down to 8.2 and 70 4K respectively. No leukocytosis. Creatinine is trending 2.3, 2.5 and 2.7. We will check a bladder scan, consult nephrology service. Remains on ceftriaxone and Zithromax antibiotics. Physical therapy is pending Echocardiogram is pending 02/07/2021 Patient states that his breathing is the samePeriod with minimal. Minimal chest pain. Actually patient was asking if he can be discharged home however he agrees to see for he is not medically stable. He thinks there is no much improvement, he also reports poor appetite however he can't consume Ensure. No vomiting, he got good bowel movement. Hemodynamically he is a stable, And blood pressure better today 152/50.. labs showing bicytopenia with low hemoglobin 8.0 and low platelet count 71, WBC is normal at 7.7K. B12 is actually elevated. Creatinine is stable at 2.7. Renal ultrasound showing medical renal disease. Instructional Systems Design Consultant evaluated the patient and 1 dose of IV Lasix was given. Objective - Vital Signs Vital signs: Vital Signs Temp 98.5 F 02/07/21 08:00 Pulse 69 02/07/21 08:00 Resp 18 02/07/21 08:00 BP 132/50 02/07/21 08:00 Pulse Ox 94 L 02/07/21 08:00 Intake & Output 02/06/21 02/07/21 02/07/21 18:59 06:59 18:59 Intake Total 720 10 Balance 720 10 Weight 68.7 kg Intake: IV 10 Invasive Line 1 10 Oral 720 Other: Voiding Method Diaper Diaper Diaper # Voids 1 2 - Exam GENERAL: The patient is alert and oriented x3, not in any acute distress. Well developed, well nourished. HEENT: Pupils are round and equally reacting to light. EOMI. No scleral icterus. No conjunctival pallor. Normocephalic, atraumatic. No pharyngeal erythema. No thyromegaly. CARDIOVASCULAR: S1 and S2 present. No murmurs, rubs, or gallops. PULMONARY: Chest is clear to auscultation, no wheezing or crackles. ABDOMEN: Soft, nontender, nondistended, normoactive bowel sounds. No palpable organomegaly. MUSCULOSKELETAL: No joint swelling or deformity. EXTREMITIES: No cyanosis, clubbing, or pedal edema. NEUROLOGICAL: Gross neurological examination did not reveal any focal deficits. SKIN: No rashes. No petechiae - Labs CBC & Chem 7: 02/07/21 06:51 02/07/21 06:51 Labs: Abnormal Lab Results - Last 24 Hours (Table) 02/06/21 02/07/21 02/07/21 Range/Units 06:54 06:51 06:51 RBC 3.07 L (4.30-5.90) m/uL Hgb 8.0 L (13.0-17.5) gm/dL Hct 24.5 L (39.0-53.0) % MCV 79.8 L (80.0-100.0) fL Plt Count 71 L (150-450) k/uL Lymphocytes # 0.4 L (1.0-4.8) k/uL BUN 35 H (9-20) mg/dL Creatinine 2.72 H (0.66-1.25) mg/dL Glucose 116 H (74-99) mg/dL Calcium 8.2 L (8.4-10.2) mg/dL Magnesium 2.4 H (1.6-2.3) mg/dL Iron 21 L (65-175) ug/dL % Saturation 8.40 L (15.00-50.00) Vitamin B12 1296.0 H (200.0-944.0) pg/mL Microbiology - Last 24 Hours (Table) 02/06/21 08:41 Gram Stain - Preliminary Sputum Sputum Culture - Preliminary 02/04/21 10:45 Blood Culture - Preliminary Blood No Growth after 48 hours 02/04/21 10:46 Blood Culture - Preliminary Blood No Growth after 48 hours Assessment and Plan Assessment: Right upper lobe pneumonia, mostly community acquired pneumonia Sepsis secondary to stop with leukocytosis and fever. Acute Kidney injury Anemia with trending down hemoglobin. Low appetite secondary to above Acute hematuria, mostly secondary to Cruz catheter and kidney stone. No further workup Right hip pain. Hip x-ray: No acute process Hypertension Hyperlipidemia Atrial fibrillation History of seizure disorder History of prostate and bladder cancer Chronic kidney disease, stage IV Plan: This is a pleasant 85 years old male who presents with right pneumonia. Continue with ceftriaxone and Zithromax. Pulmonary consult. Follow up outpatient for long nodule with Dr. Gates Consult nephrology for worsening creatinine, check a bladder scan. Patient are not limited and he is on Lasix every 48 hours. we will do anemia workup Labs and medication were reviewed.. Continue same treatment. Continue with symptomatic treatment. Resume home medication. Monitor lytes and vitals. DVT and GI prophylaxis. Further recommendations depends on the clinical course of the patient DVT prophylaxis: Patient was on Eliquis at home GI Prophylaxis: Pepcid PT/OT: Pending Prognosis is guarded
--- NOTE | 2021-02-07 11:57 | P.PN ---
Subjective Patient is seen in follow-up for acute kidney injury on chronic kidney disease. Renal function stable. Currently on 2 L nasal cannula. No active chest pain or shortness of breath. Has been voiding. Blood pressure stable. Vital signs are stable. General: The patient appeared well nourished and normally developed. HEENT: Head exam is unremarkable. Neck is without jugular venous distension. LUNGS: Breath sounds decreased. HEART: Rate and Rhythm are regular. ABDOMEN: Soft, nontender. EXTREMITITES: No edema. Objective - Vital Signs Vital signs: Vital Signs Temp 98.5 F 02/07/21 08:00 Pulse 69 02/07/21 08:00 Resp 18 02/07/21 08:00 BP 132/50 02/07/21 08:00 Pulse Ox 94 L 02/07/21 08:00 Intake & Output 02/06/21 02/07/21 02/07/21 18:59 06:59 18:59 Intake Total 720 10 Balance 720 10 Weight 68.7 kg Intake: IV 10 Invasive Line 1 10 Oral 720 Other: Voiding Method Diaper Diaper Diaper # Voids 1 2 - Labs CBC & Chem 7: 02/07/21 06:51 02/07/21 06:51 Labs: Abnormal Lab Results - Last 24 Hours (Table) 02/06/21 02/07/21 02/07/21 Range/Units 06:54 06:51 06:51 RBC 3.07 L (4.30-5.90) m/uL Hgb 8.0 L (13.0-17.5) gm/dL Hct 24.5 L (39.0-53.0) % MCV 79.8 L (80.0-100.0) fL Plt Count 71 L (150-450) k/uL Lymphocytes # 0.4 L (1.0-4.8) k/uL BUN 35 H (9-20) mg/dL Creatinine 2.72 H (0.66-1.25) mg/dL Glucose 116 H (74-99) mg/dL Calcium 8.2 L (8.4-10.2) mg/dL Magnesium 2.4 H (1.6-2.3) mg/dL Iron 21 L (65-175) ug/dL % Saturation 8.40 L (15.00-50.00) Vitamin B12 1296.0 H (200.0-944.0) pg/mL Microbiology - Last 24 Hours (Table) 02/06/21 08:41 Gram Stain - Preliminary Sputum Sputum Culture - Preliminary 02/04/21 10:45 Blood Culture - Preliminary Blood No Growth after 48 hours 02/04/21 10:46 Blood Culture - Preliminary Blood No Growth after 48 hours Assessment and Plan Plan: Assessment: 1. Acute kidney injury secondary to ATN secondary to infection. Creatinine stable at 2.72 today. Trace proteinuria on UA. No hydronephrosis noted on kidney ultrasound. 2. Chronic kidney disease stage IV. Creatinine in August 2019 was 2.1. Patient follows with a ear nose throat surgeon out of town. Etiology is nephrosclerosis. 3. Pneumonia maintained on antibiotics. 4. Coronary artery disease status post cardiac stenting. 5. Anemia of chronic kidney disease. Iron deficiency noted. Maintained on Aranesp. 6. Hypertension with chronic kidney disease. Stable. 7. Volume overload. Plan: Increase Lasix to 40 mg orally once daily. IV iron 3 doses. Avoid nephrotoxins. Continue to monitor renal function and urine output. F/u UPC.
[2021-02-07] MEDS: IPRATROPIUM-ALBUTEROL 3 ML NEB INHALATION PRN ×2 (12:08→15:49)
[2021-02-07] MEDS: ATORVASTATIN 40 MG TAB PO SCH (14:15)
[2021-02-07] MEDS: PANTOPRAZOLE 40 MG TABLET PO SCH (14:15)
[2021-02-07] MEDS: SODIUM FERRIC GLUCONAT-SUCROSE 125 MG in SODIUM CHLORIDE 0.9% 100 ML IVPB SCH (14:15)
[2021-02-07] MEDS: HYDROcodone/APAP 10-325MG 1 EACH TAB PO PRN (20:25)
[2021-02-07] MEDS: DOXAZOSIN 2 MG TAB PO SCH (20:26)
[2021-02-08] MEDS: HYDROcodone/APAP 10-325MG 1 EACH TAB PO PRN ×2 (02:20→18:51)
[2021-02-08] MEDS: ISOSORBIDE MONONITRATE ER 30 MG TAB.ER.24H PO SCH (06:31)
[2021-02-08] MEDS: ASPIRIN 81 MG PO SCH (06:31)
[2021-02-08] MEDS: amLODIPine 5 MG TAB PO SCH (06:31)
[2021-02-08] MEDS: AMIODARONE 100 MG TAB PO SCH (06:32)
[2021-02-08] MEDS: carvediloL 6.25 MG TAB PO SCH (06:32)
[2021-02-08 06:54] LABS: HCT 26.2 % (39.0-53.0); HGB 8.7 gm/dL (13.0-17.5); Hypochromasia Slight; MCH 25.9 pg (25.0-35.0); MCHC 33.1 g/dL (31.0-37.0); MCV 78.5 fL (80.0-100.0); Mean Platelet Volume 9.3; RBC 3.33 m/uL (4.30-5.90); RDW 15.3 % (11.5-15.5); WBC 6.4 k/uL (3.8-10.6)
[2021-02-08 07:12] LABS: Platelet Count 74 k/uL (150-450)
[2021-02-08 07:15] LABS: Calcium 8.3 mg/dL (8.4-10.2); Potassium 3.6 mmol/L (3.5-5.1)
--- NOTE | 2021-02-08 07:48 | XR ---
EXAMINATION TYPE: XR chest 1V DATE OF EXAM: 02/08/2021 COMPARISON: Chest x-ray 02/05/2021 HISTORY: Pulmonary edema, pneumonia TECHNIQUE: Single frontal view of the chest is obtained. FINDINGS: There is increasing density at the left lung base, the left hemidiaphragm and heart border now obscured. No evident pneumothorax. There are overlying artifacts. Heart is obscured, interstitiu m mildly increased.. Aorta is dense. Minimal patchy basilar density also present on the right. IMPRESSION: Correlate for pneumonia and associated effusion versus atelectasis or edema.
[2021-02-08] MEDS: AZITHROMYCIN 500 MG TAB PO SCH (08:07)
[2021-02-08] MEDS: FUROSEMIDE 40 MG TAB PO SCH (08:07)
[2021-02-08] MEDS: hydrALAZINE HCL 50 MG TAB PO SCH ×3 (08:07→20:57)
[2021-02-08 08:18] LABS: Lymphocytes # (M) 0.26 k/uL (1.0-4.8); Monocytes # (M) 0.51 k/uL (0-1.0); Neutrophils # (M) 5.63 k/uL (1.3-7.7); Neutrophils % (M) 88 %; Nucleated Red Blood Cells 0 /100 WBC (0-0); Total Cells Counted 100
[2021-02-08 08:19] LABS: Anisocytosis (M) Present; Poikilocytosis (M) Present
[2021-02-08] MEDS: IPRATROPIUM-ALBUTEROL 3 ML NEB INHALATION PRN ×2 (08:34→12:01)
[2021-02-08] MEDS: SODIUM FERRIC GLUCONAT-SUCROSE 125 MG in SODIUM CHLORIDE 0.9% 100 ML IVPB SCH (09:27)
[2021-02-08] MEDS: ONDANSETRON 4 MG/2 ML VIAL IVP PRN (09:37)
--- NOTE | 2021-02-08 10:25 | ECHOF ---
Referral Reason:Rule out heart disease MEASUREMENTS -------- HEIGHT: 165.1 cm WEIGHT: 81.7 kg BP: 138/56 IVSd: 1.7 cm (0.6 - 1.1) LVIDd: 4.7 cm (3.9 - 5.3) LVPWd: 1.6 cm (0.6 - 1.1) IVSs: 2.3 cm LVIDs: 1.9 cm LVPWs: 2.3 cm LAESV Index (A-L): 38.54 ml/m Ao Diam: 3.2 cm (2.0 - 3.7) AV Cusp: 2.0 cm (1.5 - 2.6) MV EXCURSION: 19.798 mm (> 18.000) MV EF SLOPE: 90 mm/s (70 - 150) EPSS: 1.4 cm MV E Mike: 1.04 m/s MV DecT: 172 ms MV A Mike: 0.78 m/s MV E/A Ratio: 1.33 RAP: 5.00 mmHg RVSP: 21.28 mmHg FINDINGS -------- Sinus rhythm. This was a technically adequate study. The left ventricular size is normal. There is moderate concentric left ventricular hypertrophy. O verall left ventricular systolic function is normal with, an EF between 55 - 60 %. The diastolic fi lling pattern is normal for the age of the patient 16.48. The right ventricle is normal in size. LA is moderately dilated 34-39 ml/m2 The right atrial size is normal. Interatrial and interventricular septum intact. The aortic valve is trileaflet and appears structurally normal. There is no evidence of aortic regu rgitation. There is no evidence of aortic stenosis. Moderate mitral regurgitation is present. Mild tricuspid regurgitation present. There is no evidence of pulmonary hypertension. The right v entricular systolic pressure, as measured by Doppler, is 21.28mmHg. There is no pulmonic regurgitation present. The aortic root size is normal. IVC Not well visulized. There is no pericardial effusion. CONCLUSIONS -------- 1. The left ventricular size is normal. 2. There is moderate concentric left ventricular hypertrophy. 3. Overall left ventricular systolic function is normal with, an EF between 55 - 60 %. 4. LA is moderately dilated 34-39 ml/m2 5. Moderate mitral regurgitation is present. 6. Mild tricuspid regurgitation present. HALL SUPERVISOR: Roxana Cheney RDCS
--- NOTE | 2021-02-08 11:18 | P.PN ---
Subjective This is a pleasant 85 years old male with past medical history of hypertension, hyperlipidemia, atrial fibrillation and seizure disorder, he has history of prostate and bladder cancer. Patient states he presents because of dyspnea wanted days duration associated with cough and clear phlegm and some chest tightness rather than pain. No abdominal pain or nausea vomiting or diarrhea. However patient complaining of from right leg pain with no history of fall Patient has fever of 100.4 on admission, his vitals stable. Laboratory showing leukocytosis with WBC 26.20. Hemoglobin 9.4, platelet count is low as 118. INR is normal. Creatinine is 2.3 which is at baseline Urinalysis showing moderate blood and hematuria Coronary first not detected. Chest x-ray showing right lower and upper lobe infiltrate Patient was started on Rocephin and Zithromax. 02/05/2021 Patient breathing looks better today. Patient is not coughing. No chest pain. He is saturating well on 2 L oxygen via nasal cannula, it looks like his pneumonia is improving. However this morning patient vomited one time, no good appetite and he had no bowel movement. In short is started for him. Blood pressure is better controlled after increasing dose of Imdur 30 up to 60 mg and at index is seen at night. looks improvement with WBC, hemoglobin and platelets are trending down. Actually WBCs back to normal today. Creatinine 2.5 to close to baseline of 2.1., Most likely it's chronic kidney disease. procalcitonin is 4.6 Neurology input is appreciated, no further workup and follow-up outpatient as needed CT of the chest showing any areas of ground glass opacity that could reflect multifocal infectious process. Suspect mild degree of alveolar and interstitial edema on background infectious process. Areas of nodularity are concerning short-term follow-up CT is advised. Patient informed about his nodule. Discussed the case with the pulmonary service, most likely pneumonia but cancer cannot be entirely excluded for now, however he will need as outpatient monitoring 02/06/2021 Patient breathing cuevas states his the same with exertion however address he randee es any dyspnea. He has poor appetite however he is using Ensure, no vomiting he has a bowel movement. His hematuria resolved. Patient still wants to go home however medically he is not.. His blood pressure is still elevated 176/76 after at index Zosyn and Imdur, we will keep monitoring for now. His hemoglobin and platelets slightly trending down to 8.2 and 70 4K respectively. No leukocytosis. Creatinine is trending 2.3, 2.5 and 2.7. We will check a bladder scan, consult nephrology service. Remains on ceftriaxone and Zithromax antibiotics. Physical therapy is pending Echocardiogram is pending 02/07/2021 Patient states that his breathing is the samePeriod with minimal. Minimal chest pain. Actually patient was asking if he can be discharged home however he agrees to see for he is not medically stable. He thinks there is no much improvement, he also reports poor appetite however he can't consume Ensure. No vomiting, he got good bowel movement. Hemodynamically he is a stable, And blood pressure better today 152/50.. labs showing bicytopenia with low hemoglobin 8.0 and low platelet count 71, WBC is normal at 7.7K. B12 is actually elevated. Creatinine is stable at 2.7. Renal ultrasound showing medical renal disease. Copy Holder evaluated the patient and 1 dose of IV Lasix was given. 02/08/2021 Patient is still complaining of from dyspnea with no significant worsening however his oxygen requirement went up to 3 L/m and he is saturating at 93-94%. Distal Vitas looks stable. His creatinine is trending down to 2.2, his CBC almost a stable with platelet count 70 4K, hemoglobin digital better today 0.7 and no leukocytosis. Blood pressure is stable. A repeat chest x-ray today showing left pleural effusion, chest ultrasound was ordered and his antibiotics were changed to Zosyn. Objective - Vital Signs Vital signs: Vital Signs Temp 99.5 F 02/08/21 11:00 Pulse 77 02/08/21 11:00 Resp 16 02/08/21 11:00 BP 129/59 02/08/21 11:00 Pulse Ox 93 L 02/08/21 11:00 Intake & Output 02/07/21 02/08/21 02/08/21 18:59 06:59 18:59 Intake Total 480 240 Balance 480 240 Weight 70.3 kg Intake: Oral 480 240 Other: Voiding Method Diaper Diaper Diaper # Voids 3 - Exam GENERAL: The patient is alert and oriented x3, not in any acute distress. Well developed, well nourished. HEENT: Pupils are round and equally reacting to light. EOMI. No scleral icterus. No conjunctival pallor. Normocephalic, atraumatic. No pharyngeal erythema. No thyromegaly. CARDIOVASCULAR: S1 and S2 present. No murmurs, rubs, or gallops. PULMONARY: Chest is clear to auscultation, no wheezing or crackles. ABDOMEN: Soft, nontender, nondistended, normoactive bowel sounds. No palpable organomegaly. MUSCULOSKELETAL: No joint swelling or deformity. EXTREMITIES: No cyanosis, clubbing, or pedal edema. NEUROLOGICAL: Gross neurological examination did not reveal any focal deficits. SKIN: No rashes. No petechiae - Labs CBC & Chem 7: 02/08/21 06:18 02/08/21 06:18 Labs: Abnormal Lab Results - Last 24 Hours (Table) 02/08/21 02/08/21 Range/Units 06:18 06:18 RBC 3.33 L (4.30-5.90) m/uL Hgb 8.7 L (13.0-17.5) gm/dL Hct 26.2 L (39.0-53.0) % MCV 78.5 L (80.0-100.0) fL Plt Count 74 L (150-450) k/uL Lymphocytes # (Manual) 0.26 L (1.0-4.8) k/uL BUN 30 H (9-20) mg/dL Creatinine 2.27 H (0.66-1.25) mg/dL Glucose 105 H (74-99) mg/dL Calcium 8.3 L (8.4-10.2) mg/dL Microbiology - Last 24 Hours (Table) 02/06/21 08:41 Gram Stain - Final Sputum Sputum Culture - Final 02/04/21 10:46 Blood Culture - Preliminary Blood No Growth after 72 hours 02/04/21 10:45 Blood Culture - Preliminary Blood No Growth after 72 hours Assessment and Plan Assessment: Right upper lobe pneumonia, with left-sided pleural effusion. Mostly gram- negative bacteremia Sepsis secondary to stop with leukocytosis and fever. Acute Kidney injury, improving Anemia with stable hemoglobin. Low appetite secondary to above Acute hematuria, mostly secondary to Cruz catheter and kidney stone. No further workup Right hip pain. Hip x-ray: No acute process Hypertension Hyperlipidemia Atrial fibrillation History of seizure disorder History of prostate and bladder cancer Chronic kidney disease, stage IV Plan: This is a pleasant 85 years old male who presents with right pneumonia. Continue with ceftriaxone and Zithromax. Pulmonary consult. Follow up outpatient for long nodule with Dr. Gates Consult nephrology for worsening creatinine, check a bladder scan. Patient are not limited and he is on Lasix every 48 hours. Evidence of iron deficiency anemia. Consult GI service. Patient also had hematuria and his been evaluated by urologist Labs and medication were reviewed.. Continue same treatment. Continue with symptomatic treatment. Resume home medication. Monitor lytes and vitals. DVT and GI prophylaxis. Further recommendations depends on the clinical course of the patient DVT prophylaxis: Patient was on Eliquis at home. Now is on hold GI Prophylaxis: Ppi PT/OT: Pending Prognosis is guarded
[2021-02-08] MEDS ORDERED: POTASSIUM CHLORIDE ER 20 MEQ TAB.ER PO STA (11:23)
--- NOTE | 2021-02-08 11:27 | P.PN ---
Subjective Patient is seen in follow-up for acute kidney injury on chronic kidney disease. Renal function better. Currently on 3 L nasal cannula. No active chest pain or shortness of breath. Has been voiding. Blood pressure stable. Cough improved. Vital signs are stable. General: The patient appeared well nourished and normally developed. HEENT: Head exam is unremarkable. Neck is without jugular venous distension. LUNGS: Breath sounds decreased. HEART: Rate and Rhythm are regular. ABDOMEN: Soft, nontender. EXTREMITITES: No edema. Objective - Vital Signs Vital signs: Vital Signs Temp 99.5 F 02/08/21 11:00 Pulse 77 02/08/21 11:00 Resp 16 02/08/21 11:00 BP 129/59 02/08/21 11:00 Pulse Ox 93 L 02/08/21 11:00 Intake & Output 02/07/21 02/08/21 02/08/21 18:59 06:59 18:59 Intake Total 480 240 Balance 480 240 Weight 70.3 kg Intake: Oral 480 240 Other: Voiding Method Diaper Diaper Diaper # Voids 3 - Labs CBC & Chem 7: 02/08/21 06:18 02/08/21 06:18 Labs: Abnormal Lab Results - Last 24 Hours (Table) 02/08/21 02/08/21 Range/Units 06:18 06:18 RBC 3.33 L (4.30-5.90) m/uL Hgb 8.7 L (13.0-17.5) gm/dL Hct 26.2 L (39.0-53.0) % MCV 78.5 L (80.0-100.0) fL Plt Count 74 L (150-450) k/uL Lymphocytes # (Manual) 0.26 L (1.0-4.8) k/uL BUN 30 H (9-20) mg/dL Creatinine 2.27 H (0.66-1.25) mg/dL Glucose 105 H (74-99) mg/dL Calcium 8.3 L (8.4-10.2) mg/dL Microbiology - Last 24 Hours (Table) 02/06/21 08:41 Gram Stain - Final Sputum Sputum Culture - Final 02/04/21 10:46 Blood Culture - Preliminary Blood No Growth after 72 hours 02/04/21 10:45 Blood Culture - Preliminary Blood No Growth after 72 hours Assessment and Plan Plan: Assessment: 1. Acute kidney injury secondary to ATN secondary to infection. Renal function is better. Creatinine 2.27 today. Trace proteinuria on UA. No hydronephrosis noted on kidney ultrasound. 2. Chronic kidney disease stage IV. Creatinine in August 2019 was 2.1. Patient follows with a workers compensation claims specialist out of town. Etiology is nephrosclerosis. 3. Pneumonia maintained on antibiotics. 4. Coronary artery disease status post cardiac stenting. 5. Anemia of chronic kidney disease. Iron deficiency noted. Maintained on Aranesp. 6. Hypertension with chronic kidney disease. Stable. 7. Volume overload. 8. Hypokalemia from diuresis. Plan: Maintain oral Lasix. Maintain IV iron. Avoid nephrotoxins. Continue to monitor renal function and urine output. F/u UPC. Replace potassium.
--- NOTE | 2021-02-08 11:39 | P.PN ---
Subjective Progress Note Date: 02/08/21 Principal diagnosis: Acute hypoxic respiratory failure Right-sided pneumonia likely community-acquired pneumonia involving right upper lobe and right lower lobe Acute exacerbation of heart failure likely chronic systolic heart failure Small bilateral pleural effusion more so on the left side compared to right side Ischemic cardiomyopathy Chronic atrial fibrillation on anticoagulation 02/08/2021, patient seen eval examined during the rounds labs reviewed medications reviewed care plan discussed, respiratory status remains stable denies any chest pain breathing comfortably, however patient is slightly more tachypneic, patient has been requesting for discharge, patient noted to have low-grade fever, saturation is 93% on 3 L, chest x-ray performed today shows further atelectasis of the left lung with increased left lower lobe density will do ultrasound of the chest to evaluate for extended a pleural effusion 02/07/2021, patient was started on bronchodilator due to wheezing, patient is being evaluated by nephrology for acute kidney injury likely related to ATN, 02/06/2021, patient seen eval examined Estrace status improved now denies any cough or sputum production, denies any chest pain patient is on room air now, patient is getting therapy for pneumonia I have explained the patient about computed tomography scan finding, plan to get an another short-term computed tomography scan as outpatient if patient discharged home recommend on oral antibiotics with follow-up in the office 02/05/2021, patient seen eval examined during the rounds labs reviewed med ications reviewed care plan discussed, respiratory status improved a bit from yesterday still short of breath, not producing any sputum, denies any chest pain computed tomography scan of the chest has been reviewed, patient noted to have extensive bilateral emphysematous changes along with a small to moderate left- sided pleural effusion, groundglass attenuation noted infiltrative findings in the lingula lobe, also on the right side there is nodular infiltrate in the right middle lobe, likely suggestive of pneumonia neoplasm less likely however but cannot be excluded, patient will need long-term follow-up with a short-term computed tomography scan as outpatient after treatment of pneumonia Patient is a pleasant 85-year-old male with history of cardiomyopathy and ischemic status post history of stent placement in the past patient follows [facility] out of town, patient came into the hospital with several days history of increase wet cough and congestion associated with white to yellow sputum production 2 days ago developed increasing shortness of breath, also chills, presented to emergency department found to have a fever, patient is been having off-and-on chest pain since yesterday without any significant relief with nitro, patient is status post vaccination with: Vaccine, review of the data revealed that patient is on diuretic anticoagulation with oral anticoagulant also antiarrhythmic agents with amiodarone and Lasix, patient recalls cardiac cath and angiogram in the past with 2 stent placement one was done at [facility], he is unaware of his ejection fraction, his prior history significant for the in addition to above seizure disorder, dyslipidemia, chronic atrial fibrillation, prostate and bladder cancer, patient does have a remote history of smoking in the past quit several years ago Patient on arrival slightly hypertensive with fever of 100.4, sats were 93% on supplemental oxygen with 2 L, white cell count is elevated to 26,000, BUN/creatinine 24 and 2.39, patient has been started on IV Rocephin with Zithromax, chest x-ray significant for developing right lower lobe and right upper lobe infiltrate, small bilateral pleural effusion more so on the left side compared right side, Objective - Vital Signs Vital signs: Vital Signs Temp 99.5 F 02/08/21 11:00 Pulse 77 02/08/21 11:00 Resp 16 02/08/21 11:00 BP 129/59 02/08/21 11:00 Pulse Ox 93 L 02/08/21 11:00 Intake & Output 02/07/21 02/08/21 02/08/21 18:59 06:59 18:59 Intake Total 480 240 Balance 480 240 Weight 70.3 kg Intake: Oral 480 240 Other: Voiding Method Diaper Diaper Diaper # Voids 3 - Exam - Constitutional General appearance: average body habitus, cooperative, disheveled - EENT Eyes: EOMI, PERRLA Ears: bilateral: normal - Neck Neck: normal ROM Carotids: bilateral: upstroke normal Thyroid: bilateral: normal size - Respiratory Respiratory: bilateral: rales (With bronchial breath sounds bilaterally) - Cardiovascular Rhythm: regular Heart sounds: normal: S1, S2 - Gastrointestinal General gastrointestinal: normal bowel sounds - Integumentary Integumentary: normal - Neurologic Neurologic: CNII-XII intact - Musculoskeletal Musculoskeletal: gait normal, generalized weakness, strength equal bilaterally - Psychiatric Psychiatric: A&O x's 3, appropriate affect, intact judgment & insight - Labs CBC & Chem 7: 02/08/21 06:18 02/08/21 06:18 Labs: Abnormal Lab Results - Last 24 Hours (Table) 02/08/21 02/08/21 Range/Units 06:18 06:18 RBC 3.33 L (4.30-5.90) m/uL Hgb 8.7 L (13.0-17.5) gm/dL Hct 26.2 L (39.0-53.0) % MCV 78.5 L (80.0-100.0) fL Plt Count 74 L (150-450) k/uL Lymphocytes # (Manual) 0.26 L (1.0-4.8) k/uL BUN 30 H (9-20) mg/dL Creatinine 2.27 H (0.66-1.25) mg/dL Glucose 105 H (74-99) mg/dL Calcium 8.3 L (8.4-10.2) mg/dL Microbiology - Last 24 Hours (Table) 02/06/21 08:41 Gram Stain - Final Sputum Sputum Culture - Final 02/04/21 10:46 Blood Culture - Preliminary Blood No Growth after 72 hours 02/04/21 10:45 Blood Culture - Preliminary Blood No Growth after 72 hours Assessment and Plan Assessment: Acute hypoxic respiratory failure Left-sided worsening pleural effusion Right-sided pneumonia likely community-acquired pneumonia involving middle lobe with nodular appearance neoplasm however cannot be excluded Left-sided lingular lobe pneumonia Left-sided pleural effusion Acute exacerbation of heart failure likely chronic systolic heart failure Small bilateral pleural effusion more so on the left side compared to right side Ischemic cardiomyopathy Chronic atrial fibrillation on anticoagulation Plan: Continue supplemental oxygen Continue IV Zosyn recommend to add vancomycin as well Follow-up on ultrasound of the chest Reviewed computed tomography scan with findings as noted above Cardiovascular evaluation prior cardiovascular services Continue current plan of care with treatment with antibiotics patient will need short-term computed tomography scan as outpatient after 6-8 weeks of therapy Time with Patient: Greater than 30
[2021-02-08] MEDS: PANTOPRAZOLE 40 MG TABLET PO SCH (12:31)
[2021-02-08] MEDS: ATORVASTATIN 40 MG TAB PO SCH (12:31)
[2021-02-08] MEDS: PIPERACILLIN-TAZOBACTAM 3.375 GM in SODIUM CHLORIDE 0.9% 100 ML IVPB SCH ×2 (12:32→23:39)
--- NOTE | 2021-02-08 12:40 | US ---
EXAMINATION TYPE: US chest DATE OF EXAM: 02/08/2021 COMPARISON: NONE CLINICAL HISTORY: left pl effusion. Left plural effusion TECHNIQUE: Targeted ultrasound of the posterior lower left hemithorax EXAM MEASUREMENTS: Left Pleural Effusion pocket size: 7.5 cm Lung tissue visualized. Left skin surface to fluid distance: 1.9 cm Left side marked for possible thoracentesis outside the dept. Pulmonologists are able to review the images in the patient?s EMR. IMPRESSIONS: 1. Left pleural effusion with the deepest pocket of pleural fluid measuring 7.5 cm. Please see above findings.
[2021-02-08] MEDS: ACETAMINOPHEN TAB 325 MG TAB PO PRN (18:02)
--- NOTE | 2021-02-08 18:40 | CONS ---
CONSULTATION DATE OF SERVICE: 02/08/2021 REASON FOR CONSULTATION: Symptomatic anemia. HISTORY OF PRESENT ILLNESS: The patient is an 85-year-old pleasant white male with history of hypertension, hyperlipidemia, atrial fibrillation, seizure disorder, history of bladder cancer admitted to hospital 4 days ago when he presented with shortness of breath associated with cough for the last few days duration. During the hospital stay, he was noted to have anemia with a hemoglobin of 8.8 g/dL and slightly decreased MCV. He did have iron studies done and iron was 21, TIBC 250, iron saturation 8% and ferritin is 77, consistent with iron deficiency anemia and hence we are consulted in regards to this issue. The patient denies any abdominal pain. He reports no nausea, vomiting. No rectal bleeding or melena. He states that about 6 months ago he was admitted to [facility] with severe GI bleed. He states that he received 13 units of PRBC transfusion at that time and he underwent colonoscopy on 2 different occasions but does not recall the details. Records have been requested which are still pending at the time of this dictation. No prior history of peptic ulcer disease or recent NSAID use. PAST MEDICAL HISTORY: Significant for hypertension, hyperlipidemia, gastroesophageal reflux disease, history of bladder cancer, follows with Dr. Naqvi. MEDICATIONS: Medications at home include Apresoline, Norvasc, Protonix, Nitrostat, Imdur, [place], Lasix, Feosol, Coreg, Lipitor, Ecotrin, and Cardura. ALLERGIES: None. SOCIAL HISTORY: No smoking. No alcohol use. FAMILY HISTORY: Unremarkable. REVIEW OF SYSTEMS: CARDIOPULMONARY: Denies any chest pain but he does complain of shortness of breath. GENITOURINARY: No dysuria or hematuria. MUSCULOSKELETAL: Unremarkable. SKIN: Unremarkable. ENDOCRINE: Unremarkable. PSYCHIATRIC: Unremarkable. NEUROLOGY: Unremarkable. ENT/VISION: Unremarkable. GENITOURINARY: History of bladder cancer. CONSTITUTIONAL: No recent weight loss. No fever, chills, night sweats. PHYSICAL EXAMINATION: GENERAL: He appears comfortable. VITAL SIGNS: Stable. Blood pressure is 133/59, pulse rate 77, temperature 99.5. HEENT: Examination unremarkable. Conjunctivae are pink. Sclerae anicteric. Oral cavity no lesions. NECK: No JVD or lymph node enlargement. CHEST: Decreased breath sounds bilaterally. HEART: Regular rate and rhythm. ABDOMEN: Soft, bowel sounds are positive, no organomegaly. EXTREMITIES: No pedal edema. NEURO: He is alert and oriented x3. No focal deficits. LAB: BUN 28, creatinine 2.55, hemoglobin was 8.8, and today it is 8.7. Serum iron is 21, TIBC 250, iron saturation 8.4, and ferritin is 77. Vitamin B12 is 1296. IMPRESSION: 1. Normocytic anemia and iron indices consistent with iron deficiency anemia. The patient clinically has no active bleeding. He stated that he had a colonoscopy done at [facility] 6 months ago when he presented with acute GI bleed and received 13 units of PRBC transfusion during that hospitalization. He does not recall the results of the colonoscopy. Currently denies any abdominal pain. No nausea, vomiting. No prior history of peptic ulcer disease. Hemoglobin remains stable during this hospitalization. 2. Elevated BUN and creatinine consistent with acute kidney injury superimposed on chronic kidney disease. Dr. Georges following the patient closely. 3. History of hypertension and hyperlipidemia. 4. Pneumonia, on broad-spectrum antibiotics. RECOMMENDATIONS: 1. Obtain records from [facility] regarding recent colonoscopy that was done 6 months ago. 2. Since the hemoglobin is stable, we will not plan on any endoscopy intervention at this time, but further recommendations will follow once records are reviewed. 3. Monitor CBC daily. 4. Continue current management. We will follow with you closely. Thank you for this consultation. KEL / DA: [id number] /
[2021-02-08] MEDS: DOXAZOSIN 2 MG TAB PO SCH (20:58)
[2021-02-09] MEDS: HYDROcodone/APAP 10-325MG 1 EACH TAB PO PRN ×3 (02:22→21:23)
[2021-02-09] MEDS: carvediloL 6.25 MG TAB PO SCH (05:49)
[2021-02-09] MEDS: AMIODARONE 100 MG TAB PO SCH (05:49)
[2021-02-09] MEDS: amLODIPine 5 MG TAB PO SCH (05:49)
[2021-02-09] MEDS: ISOSORBIDE MONONITRATE ER 30 MG TAB.ER.24H PO SCH (05:49)
[2021-02-09] MEDS: ASPIRIN 81 MG PO SCH (05:49)
--- NOTE | 2021-02-09 06:19 | CONS ---
CONSULTATION DATE OF SERVICE: 02/08/2021 REASON FOR CONSULTATION: Worsening pneumonia. HISTORY OF PRESENT ILLNESS: The patient is an 85-year-old male who presented to the [facility] ER on 02/04/2021 for evaluation of increasing shortness of breath, chest pain and cough. The patient's symptoms have been going on for a day or two before presentation to hospital. The patient did have a congested cough with occasional sputum production. No hemoptysis. The patient denies having any nausea. No vomiting. No choking on food. No abdominal pain or any diarrhea. With these symptoms, the patient was evaluated by the ER physician. On arrival to the ER, the patient did have a low-grade fever of 100.4 degrees Fahrenheit. The patient did have a white count of 26.1 that subsequently normalized. He did have elevated BUN and creatinine. Procalcitonin was 4.66. Urine was negative. Iglesias PCR was negative. The patient's initial chest x-ray reported considered CHF exacerbation. The patient did have a CT of the chest which shows cardiomegaly with small pleural effusion and areas of ground-glass opacity could reflect multifocal infectious process. The patient has been treated with Rocephin and Zithromax with a repeat x-ray done this morning, increased intensity at the the left lung base with concern for possible worsening pneumonia. Antibiotic was switched over to Zosyn. Infectious Disease was consulted for further management of antibiotic therapy. The patient did have a sputum obtained on the that was negative. REVIEW OF SYSTEMS: Positive points have been mentioned in HPI. Rest of systems are negative. PAST MEDICAL HISTORY: Hypertension, hyperlipidemia, history of prostate cancer, atrial fibrillation, seizure disorder. PAST SURGICAL HISTORY: and prostate surgery. SOCIAL HISTORY: Denies smoking, drinking or drug use. FAMILY HISTORY: No pertinent findings noticed. ALLERGIES: No known drug allergies. MEDICATIONS: The patient is currently on Tylenol, Frederick, DuoNeb, amiodarone, Norvasc, aspirin, Lipitor, Coreg, Cardura, Lasix, hydralazine, Imdur, Zofran and Zosyn. PHYSICAL EXAMINATION: VITAL SIGNS: Blood pressure 155/70 with a pulse of 71, temperature 98.2, he is 94% on 2 L nasal cannula. GENERAL DESCRIPTION: Patient is an elderly male lying in bed in no distress. No tachypnea or accessory muscles of respiration use. HEENT: Examination shows pallor, no scleral icterus. Oral mucous membrane is dry. NECK: Trachea central, no thyromegaly. LUNGS: Unlabored breathing, decreased breath sounds at the bases. No wheeze. HEART: S1-S2, regular rate and rhythm. ABDOMEN: Soft, no tenderness. No guarding or rigidity. EXTREMITIES: No edema of the feet. SKIN: No rash or mass palpable. NEUROLOGICAL: Patient is awake, alert, oriented times three. Mood and affect normal. LABS: Hemoglobin is 8.7, white count 6.4, BUN of 30, creatinine is 2.27. Electrolytes have been normal. NT-proBNP on admission was 1660. Urine is negative. Iglesias PCR was negative. Chest x-ray report as mentioned above. DIAGNOSTIC IMPRESSION: Patient admitted to the hospital with shortness of breath which is likely multifactorial in this patient with possible component of pneumonia. However, overall worsening of his chest x-ray finding is more likely related to his underlying cardiopulmonary condition, as the patient did have evidence of renal failure as well as congestive heart failure. Clinically doubt worsening pneumonia in a patient with no fever or elevated white count. PLAN: 1. Will recommend repeat sputum for Gram stain and culture. 2. Antibiotic have been adjusted to Zosyn to continue at this point. 3. We will check his inflammatory markers and NT-proBNP. 4. We will follow his clinical condition and further adjust medication if needed. Thank you for this consultation. Will follow this patient along with you. MMODL / IJN: [id number] /
[2021-02-09] MEDS: IPRATROPIUM-ALBUTEROL 3 ML NEB INHALATION PRN ×2 (07:42→19:41)
[2021-02-09 07:51] LABS: HCT 26.6 % (39.0-53.0); HGB 8.4 gm/dL (13.0-17.5); Hypochromasia Moderate; MCH 25.6 pg (25.0-35.0); MCHC 31.8 g/dL (31.0-37.0); MCV 80.6 fL (80.0-100.0); Mean Platelet Volume 10.1; RBC 3.29 m/uL (4.30-5.90); RDW 15.4 % (11.5-15.5); WBC 7.2 k/uL (3.8-10.6)
[2021-02-09 08:11] LABS: Calcium 8.5 mg/dL (8.4-10.2); Magnesium 2.3 mg/dL (1.6-2.3); Potassium 4.6 mmol/L (3.5-5.1)
[2021-02-09 08:20] LABS: Platelet Count 75 k/uL (150-450)
[2021-02-09] MEDS: hydrALAZINE HCL 50 MG TAB PO SCH ×3 (08:57→20:28)
[2021-02-09] MEDS: SODIUM FERRIC GLUCONAT-SUCROSE 125 MG in SODIUM CHLORIDE 0.9% 100 ML IVPB SCH (08:57)
[2021-02-09] MEDS: FUROSEMIDE 40 MG TAB PO SCH (08:57)
[2021-02-09 09:19] LABS: C Reactive Protein 2.1 mg/dL (<1.0)
[2021-02-09 09:34] LABS: Eosinophils # (M) 0.14 k/uL (0-0.7); Lymphocytes # (M) 0.65 k/uL (1.0-4.8); Monocytes # (M) 1.01 k/uL (0-1.0); Neutrophils % (M) 75 %; Nucleated Red Blood Cells 0 /100 WBC (0-0); Total Cells Counted 100
[2021-02-09 09:54] LABS: Creatinine,Urine Random 86.4 mg/dL; Protein/Creatinine Ratio,Urine 0.903
--- NOTE | 2021-02-09 10:15 | P.PN ---
Subjective Patient is seen in follow-up for acute kidney injury on chronic kidney disease. Renal function fairly stable. Currently on 2 L nasal cannula. Has been ambulating. Cough improved. No chest pain. Vital signs are stable. General: The patient appeared well nourished and normally developed. HEENT: Head exam is unremarkable. Neck is without jugular venous distension. LUNGS: Breath sounds decreased. HEART: Rate and Rhythm are regular. ABDOMEN: Soft, nontender. EXTREMITITES: No edema. Objective - Vital Signs Vital signs: Vital Signs Temp 98.5 F 02/09/21 04:00 Pulse 67 02/09/21 07:59 Resp 17 02/09/21 04:00 BP 155/68 02/09/21 04:00 Pulse Ox 96 02/09/21 04:00 Intake & Output 02/08/21 02/09/21 02/09/21 18:59 06:59 18:59 Intake Total 780 300 Balance 780 300 Weight 72.7 kg Intake: IV 300 Piperacillin-Tazobactam 3 100 .375 gm In Sodium Chloride 0.9% 100 ml @ 25 mls/hr IVPB Q12H TOY Rx# :[id number] Sodium Ferric Gluconat- 100 Sucrose 125 mg In Sodium Chloride 0.9% 100 ml @ 100 mls/hr IVPB DAILY TOY Rx#:[id number] cefTRIAXone 2 gm In 100 Sodium Chloride 0.9% 50 ml @ 100 mls/hr IVPB Q24HR TOY Rx#:[id number] Intake, IV Titration 100 Amount Piperacillin-Tazobactam 3 100 .375 gm In Sodium Chloride 0.9% 100 ml @ 25 mls/hr IVPB Q12H TOY Rx# :[id number] Oral 480 200 Other: Voiding Method Diaper Diaper # Voids 3 - Labs CBC & Chem 7: 02/09/21 07:31 02/09/21 07:31 Labs: Abnormal Lab Results - Last 24 Hours (Table) 02/09/21 02/09/21 Range/Units 07:31 07:31 RBC 3.29 L (4.30-5.90) m/uL Hgb 8.4 L (13.0-17.5) gm/dL Hct 26.6 L (39.0-53.0) % Plt Count 75 L (150-450) k/uL Lymphocytes # (Manual) 0.65 L (1.0-4.8) k/uL Monocytes # (Manual) 1.01 H (0-1.0) k/uL Carbon Dioxide 33 H (22-30) mmol/L BUN 30 H (9-20) mg/dL Creatinine 2.46 H (0.66-1.25) mg/dL Glucose 110 H (74-99) mg/dL C-Reactive Protein 2.1 H (<1.0) mg/dL Microbiology - Last 24 Hours (Table) 02/04/21 10:46 Blood Culture - Preliminary Blood No Growth after 96 hours 02/04/21 10:45 Blood Culture - Preliminary Blood No Growth after 96 hours 02/06/21 08:41 Gram Stain - Final Sputum Sputum Culture - Final Assessment and Plan Plan: Assessment: 1. Acute kidney injury secondary to ATN secondary to infection. Renal function is fairly stable. Creatinine 2.46 today. Trace proteinuria on UA. UPC 0.9. No hydronephrosis noted on kidney ultrasound. 2. Chronic kidney disease stage IV. Creatinine in August 2019 was 2.1. Patient follows with a bread distributor out of town. Etiology is nephrosclerosis. 3. Pneumonia maintained on antibiotics. 4. Coronary artery disease status post cardiac stenting. 5. Anemia of chronic kidney disease. Iron deficiency noted. Maintained on Aranesp. 6. Hypertension with chronic kidney disease. Stable. 7. Volume overload. Maintained on Lasix. 8. Hypokalemia from diuresis. Replace. Better. Plan: Maintain oral Lasix. Maintain IV iron. Avoid nephrotoxins. Continue to monitor renal function and urine output. Repeat UA.
[2021-02-09 11:11] LABS: Appearance,Urine Cloudy (Clear); Bilirubin,Urine Negative (Negative); Blood,Urine Moderate (Negative); Color,Urine Yellow; Glucose,Urine (UA) Negative (Negative); Ketones,Urine Negative (Negative); Leukocyte Esterase,Urine Negative (Negative); Nitrite,Urine Negative (Negative); Protein,Urine 1+ (Negative); Specific Gravity,Urine 1.017 (1.001-1.035); Urobilinogen,Urine <2.0 mg/dL (<2.0); WBC,Urine 5 /hpf (0-5)
[2021-02-09 11:12] LABS: Amorphous Sediment,Urine Rare /hpf; Mucus,Urine Rare /hpf; RBC,Urine >182 /hpf (0-5); Squamous Epithelial Cell,Urine 3 /hpf (0-4); Triple Phosphate Crystal,Urine Occasional /hpf
[2021-02-09] MEDS: PIPERACILLIN-TAZOBACTAM 3.375 GM in SODIUM CHLORIDE 0.9% 100 ML IVPB SCH ×2 (11:51→23:30)
[2021-02-09] MEDS: PANTOPRAZOLE 40 MG TABLET PO SCH (11:52)
[2021-02-09] MEDS: ATORVASTATIN 40 MG TAB PO SCH (11:52)
--- NOTE | 2021-02-09 14:06 | P.PN ---
Subjective This is a pleasant 85 years old male with past medical history of hypertension, hyperlipidemia, atrial fibrillation and seizure disorder, he has history of prostate and bladder cancer. Patient states he presents because of dyspnea wanted days duration associated with cough and clear phlegm and some chest tightness rather than pain. No abdominal pain or nausea vomiting or diarrhea. However patient complaining of from right leg pain with no history of fall Patient has fever of 100.4 on admission, his vitals stable. Laboratory showing leukocytosis with WBC 26.20. Hemoglobin 9.4, platelet count is low as 118. INR is normal. Creatinine is 2.3 which is at baseline Urinalysis showing moderate blood and hematuria Coronary first not detected. Chest x-ray showing right lower and upper lobe infiltrate Patient was started on Rocephin and Zithromax. 02/05/2021 Patient breathing looks better today. Patient is not coughing. No chest pain. He is saturating well on 2 L oxygen via nasal cannula, it looks like his pneumonia is improving. However this morning patient vomited one time, no good appetite and he had no bowel movement. In short is started for him. Blood pressure is better controlled after increasing dose of Imdur 30 up to 60 mg and at index is seen at night. looks improvement with WBC, hemoglobin and platelets are trending down. Actually WBCs back to normal today. Creatinine 2.5 to close to baseline of 2.1., Most likely it's chronic kidney disease. procalcitonin is 4.6 Neurology input is appreciated, no further workup and follow-up outpatient as needed CT of the chest showing any areas of ground glass opacity that could reflect multifocal infectious process. Suspect mild degree of alveolar and interstitial edema on background infectious process. Areas of nodularity are concerning short-term follow-up CT is advised. Patient informed about his nodule. Discussed the case with the pulmonary service, most likely pneumonia but cancer cannot be entirely excluded for now, however he will need as outpatient monitoring 02/06/2021 Patient breathing cuevas states his the same with exertion however address he randee es any dyspnea. He has poor appetite however he is using Ensure, no vomiting he has a bowel movement. His hematuria resolved. Patient still wants to go home however medically he is not.. His blood pressure is still elevated 176/76 after at index Zosyn and Imdur, we will keep monitoring for now. His hemoglobin and platelets slightly trending down to 8.2 and 70 4K respectively. No leukocytosis. Creatinine is trending 2.3, 2.5 and 2.7. We will check a bladder scan, consult nephrology service. Remains on ceftriaxone and Zithromax antibiotics. Physical therapy is pending Echocardiogram is pending 02/07/2021 Patient states that his breathing is the samePeriod with minimal. Minimal chest pain. Actually patient was asking if he can be discharged home however he agrees to see for he is not medically stable. He thinks there is no much improvement, he also reports poor appetite however he can't consume Ensure. No vomiting, he got good bowel movement. Hemodynamically he is a stable, And blood pressure better today 152/50.. labs showing bicytopenia with low hemoglobin 8.0 and low platelet count 71, WBC is normal at 7.7K. B12 is actually elevated. Creatinine is stable at 2.7. Renal ultrasound showing medical renal disease. Handle Sander Operator evaluated the patient and 1 dose of IV Lasix was given. 02/08/2021 Patient is still complaining of from dyspnea with no significant worsening however his oxygen requirement went up to 3 L/m and he is saturating at 93-94%. Distal Vitas looks stable. His creatinine is trending down to 2.2, his CBC almost a stable with platelet count 70 4K, hemoglobin digital better today 0.7 and no leukocytosis. Blood pressure is stable. A repeat chest x-ray today showing left pleural effusion, chest ultrasound was ordered and his antibiotics were changed to Zosyn. 01/10/2021 Patient still with mild tachypnea, distal asking when he will be discharged home. He denies chest pain or abdominal pain or vomiting. He is hemodynamically stable and he is saturating 20 L/m of oxygen and high 90s. His labs are stable including normal WBC hemoglobin 8.4 and platelets of 75K. Creatinine improved gradually developed 0.4 while he is on oral Lasix. No need for endoscopy for GI team, keep monitoring hemoglobin. He remains on Zosyn, id team on the case Objective - Vital Signs Vital signs: Vital Signs Temp 97.7 F 02/09/21 08:00 Pulse 73 02/09/21 08:00 Resp 16 02/09/21 08:00 BP 146/67 02/09/21 08:00 Pulse Ox 96 02/09/21 08:00 Intake & Output 02/08/21 02/09/21 02/09/21 18:59 06:59 18:59 Intake Total 780 300 200 Balance 780 300 200 Weight 72.7 kg Intake: IV 300 Piperacillin-Tazobactam 3 100 .375 gm In Sodium Chloride 0.9% 100 ml @ 25 mls/hr IVPB Q12H TOY Rx# :[id number] Sodium Ferric Gluconat- 100 Sucrose 125 mg In Sodium Chloride 0.9% 100 ml @ 100 mls/hr IVPB DAILY TOY Rx#:[id number] cefTRIAXone 2 gm In 100 Sodium Chloride 0.9% 50 ml @ 100 mls/hr IVPB Q24HR TOY Rx#:[id number] Intake, IV Titration 100 Amount Piperacillin-Tazobactam 3 100 .375 gm In Sodium Chloride 0.9% 100 ml @ 25 mls/hr IVPB Q12H TOY Rx# :[id number] Oral 480 200 200 Other: Voiding Method Diaper Diaper Diaper # Voids 3 - Exam GENERAL: The patient is alert and oriented x3, not in any acute distress. Well developed, well nourished. HEENT: Pupils are round and equally reacting to light. EOMI. No scleral icterus. No conjunctival pallor. Normocephalic, atraumatic. No pharyngeal erythema. No thyromegaly. CARDIOVASCULAR: S1 and S2 present. No murmurs, rubs, or gallops. PULMONARY: Chest is clear to auscultation, no wheezing or crackles. ABDOMEN: Soft, nontender, nondistended, normoactive bowel sounds. No palpable organomegaly. MUSCULOSKELETAL: No joint swelling or deformity. EXTREMITIES: No cyanosis, clubbing, or pedal edema. NEUROLOGICAL: Gross neurological examination did not reveal any focal deficits. SKIN: No rashes. No petechiae - Labs CBC & Chem 7: 02/09/21 07:31 02/09/21 07:31 Labs: Abnormal Lab Results - Last 24 Hours (Table) 02/09/21 02/09/21 02/09/21 Range/Units 07:31 07:31 07:31 RBC 3.29 L (4.30-5.90) m/uL Hgb 8.4 L (13.0-17.5) gm/dL Hct 26.6 L (39.0-53.0) % Plt Count 75 L (150-450) k/uL Lymphocytes # (Manual) 0.65 L (1.0-4.8) k/uL Monocytes # (Manual) 1.01 H (0-1.0) k/uL Carbon Dioxide 33 H (22-30) mmol/L BUN 30 H (9-20) mg/dL Creatinine 2.46 H (0.66-1.25) mg/dL Glucose 110 H (74-99) mg/dL C-Reactive Protein 2.1 H (<1.0) mg/dL Procalcitonin 0.61 H (0.02-0.09) ng/mL Urine Protein (Negative) Urine Blood (Negative) Urine RBC (0-5) /hpf Urine WBC Clumps (None) /hpf Triple Phos Crystals (None) /hpf Amorphous Sediment (None) /hpf Urine Mucus (None) /hpf 02/09/21 Range/Units 09:04 RBC (4.30-5.90) m/uL Hgb (13.0-17.5) gm/dL Hct (39.0-53.0) % Plt Count (150-450) k/uL Lymphocytes # (Manual) (1.0-4.8) k/uL Monocytes # (Manual) (0-1.0) k/uL Carbon Dioxide (22-30) mmol/L BUN (9-20) mg/dL Creatinine (0.66-1.25) mg/dL Glucose (74-99) mg/dL C-Reactive Protein (<1.0) mg/dL Procalcitonin (0.02-0.09) ng/mL Urine Protein 1+ H (Negative) Urine Blood Moderate H (Negative) Urine RBC >182 H (0-5) /hpf Urine WBC Clumps Rare H (None) /hpf Triple Phos Crystals Occasional H (None) /hpf Amorphous Sediment Rare H (None) /hpf Urine Mucus Rare H (None) /hpf Microbiology - Last 24 Hours (Table) 02/04/21 10:46 Blood Culture - Preliminary Blood No Growth after 120 hours 02/04/21 10:45 Blood Culture - Preliminary Blood No Growth after 120 hours Assessment and Plan Assessment: Right upper lobe pneumonia, with left-sided pleural effusion. Mostly gram- negative bacteremia Sepsis secondary to stop with leukocytosis and fever. Acute Kidney injury, improving Anemia with stable hemoglobin. Low appetite secondary to above Acute hematuria, mostly secondary to Cruz catheter and kidney stone. No further workup [per urologist] Right hip pain. Hip x-ray: No acute process Hypertension Hyperlipidemia Atrial fibrillation History of seizure disorder History of prostate and bladder cancer Chronic kidney disease, stage IV Plan: This is a pleasant 85 years old male who presents with right pneumonia. Continue with Zosyn, Pulmonary consult. Follow up outpatient for long nodule with Dr. Gates follow up with clinical medical assistant , GI and ID team who are on the case, also pt was seen by urologist Labs and medication were reviewed.. Continue same treatment. Continue with symptomatic treatment. Resume home medication. Monitor lytes and vitals. DVT and GI prophylaxis. Further recommendations depends on the clinical course of the patient DVT prophylaxis: Patient was on Eliquis at home. Now is on hold GI Prophylaxis: Ppi PT/OT: Home with Family Prognosis is guarded
--- NOTE | 2021-02-09 15:19 | P.PN ---
Subjective Progress Note Date: 02/09/21 Principal diagnosis: Symptomatic anemia 85-year-old female with a history of atrial fibrillation on on any anticoagulation presented to the hospital with complaints of shortness of breath associated with cough for the last few days duration. His hospital stay he was noted to have a drop in his hemoglobin, also had iron studies that was consistent with iron deficiency anemia. The patient states he had a history of a GI bleed in February of last year, for which he was seen and treated at [facility]. He underwent 2 colonoscopies and a gastro-intestinal bleed study which was positive. There was a site of abnormal accumulation of tagged red blood cells identified just right of the midline in the expected location of the sigmoid colon. Reports from [facility] also show a previous colonoscopy on 02/28/2020 showing moderate pandiverticulosis clip in the ascending colon from previous colonoscopy and clipping the descending colon from a previous colonoscopy no blood found throughout the entire colon or stigmata of previous bleeding. Small internal hemorrhoids. He continues to deny any signs or symptoms of GI bleed, nausea, vomiting, or abdominal pain. He has been treated for pneumonia and had a recent chest ultrasound showed twin pleural effusion. Objective - Vital Signs Vital signs: Vital Signs Temp 98.5 F 02/09/21 04:00 Pulse 67 02/09/21 07:59 Resp 17 02/09/21 04:00 BP 155/68 02/09/21 04:00 Pulse Ox 96 02/09/21 04:00 Intake & Output 02/08/21 02/09/21 02/09/21 18:59 06:59 18:59 Intake Total 780 300 Balance 780 300 Weight 72.7 kg Intake: IV 300 Piperacillin-Tazobactam 3 100 .375 gm In Sodium Chloride 0.9% 100 ml @ 25 mls/hr IVPB Q12H TOY Rx# :[id number] Sodium Ferric Gluconat- 100 Sucrose 125 mg In Sodium Chloride 0.9% 100 ml @ 100 mls/hr IVPB DAILY TOY Rx#:[id number] cefTRIAXone 2 gm In 100 Sodium Chloride 0.9% 50 ml @ 100 mls/hr IVPB Q24HR TOY Rx#:[id number] Intake, IV Titration 100 Amount Piperacillin-Tazobactam 3 100 .375 gm In Sodium Chloride 0.9% 100 ml @ 25 mls/hr IVPB Q12H TOY Rx# :[id number] Oral 480 200 Other: Voiding Method Diaper Diaper # Voids 3 - Exam General appearance: The patient is alert, oriented, appears in no acute distress. HET: Head is normocephalic and atraumatic. Conjunctiva pink. Sclera anicteric. Neck: Supple without lymphadenopathy. Abdomen: Soft, nontender, nondistended with bowel sounds. No guarding or rigidity. Extremities: Normal skin color and turgor. No pedal edema Skin: No rashes, no jaundice Neurological: No focal deficits. Alert and oriented 3. - Labs CBC & Chem 7: 02/09/21 07:31 02/09/21 07:31 Labs: Abnormal Lab Results - Last 24 Hours (Table) 02/09/21 02/09/21 Range/Units 07:31 07:31 RBC 3.29 L (4.30-5.90) m/uL Hgb 8.4 L (13.0-17.5) gm/dL Hct 26.6 L (39.0-53.0) % Plt Count 75 L (150-450) k/uL Lymphocytes # (Manual) 0.65 L (1.0-4.8) k/uL Monocytes # (Manual) 1.01 H (0-1.0) k/uL Carbon Dioxide 33 H (22-30) mmol/L BUN 30 H (9-20) mg/dL Creatinine 2.46 H (0.66-1.25) mg/dL Glucose 110 H (74-99) mg/dL C-Reactive Protein 2.1 H (<1.0) mg/dL Microbiology - Last 24 Hours (Table) 02/04/21 10:46 Blood Culture - Preliminary Blood No Growth after 96 hours 02/04/21 10:45 Blood Culture - Preliminary Blood No Growth after 96 hours 02/06/21 08:41 Gram Stain - Final Sputum Sputum Culture - Final Assessment and Plan (1) Normocytic anemia Narrative/Plan: Normocytic anemia and iron studies consistent with iron deficiency anemia. Patient clinically has no active bleeding. Reports from [facility] show that he had a colonoscopy in February 2020 for GI bleed, he had moderate pandiverticulosis, clips in the ascending colon from previous colonoscopy that admission and a clip in the descending colon from previous colonoscopy, also had a positive tagged RBC. He continues to deny any abdominal pain, nausea, or vomiting. Hemoglobin has remained stable. No plans for endoscopic evaluation at this time Current Visit: Yes Status: Acute Code(s): D64.9 - ANEMIA, UNSPECIFIED SNOMED Code(s): 321039545 Plan: 1. Records obtained from [facility] during chart 2. Monitor CBC daily 3. Agree with IV iron infusion 4. No plans for endoscopic evaluation at this time since there are no signs of a GI bleed Thank you for this consultation, we will continue to follow Dr. Chauhan I agree with the dictator's note, documented as a scribe by Savanah Sheehan.
--- NOTE | 2021-02-09 15:23 | P.PN ---
Subjective Progress Note Date: 02/09/21 Principal diagnosis: Acute hypoxic respiratory failure Right-sided pneumonia likely community-acquired pneumonia involving right upper lobe and right lower lobe Acute exacerbation of heart failure likely chronic systolic heart failure Small bilateral pleural effusion more so on the left side compared to right side Ischemic cardiomyopathy Chronic atrial fibrillation on anticoagulation 02/09/2021, patient seen eval examined during the rounds labs reviewed medications care plan discussed, patient remains short of breath on activity and exertion, has been on 2 L oxygen, chest x-ray showed worsening of pleural effusion the left side ultrasound confirmed moderate pleural effusion I have discussed with the patient about thoracentesis process and cons explained along with alternative procedures and side effects also explained patient wants to proceed with thoracentesis 02/08/2021, patient seen eval examined during the rounds labs reviewed medications reviewed care plan discussed, respiratory status remains stable denies any chest pain breathing comfortably, however patient is slightly more tachypneic, patient has been requesting for discharge, patient noted to have low-grade fever, saturation is 93% on 3 L, chest x-ray performed today shows further atelectasis of the left lung with increased left lower lobe density will do ultrasound of the chest to evaluate for extended a pleural effusion 02/07/2021, patient was started on bronchodilator due to wheezing, patient is being evaluated by nephrology for acute kidney injury likely related to ATN, 02/06/2021, patient seen eval examined Estrace status improved now denies any cough or sputum production, denies any chest pain patient is on room air now, patient is getting therapy for pneumonia I have explained the patient about computed tomography scan finding, plan to get an another short-term computed malu ography scan as outpatient if patient discharged home recommend on oral antibiotics with follow-up in the office 02/05/2021, patient seen eval examined during the rounds labs reviewed medications reviewed care plan discussed, respiratory status improved a bit from yesterday still short of breath, not producing any sputum, denies any chest pain computed tomography scan of the chest has been reviewed, patient noted to have extensive bilateral emphysematous changes along with a small to moderate left- sided pleural effusion, groundglass attenuation noted infiltrative findings in the lingula lobe, also on the right side there is nodular infiltrate in the right middle lobe, likely suggestive of pneumonia neoplasm less likely however but cannot be excluded, patient will need long-term follow-up with a short-term computed tomography scan as outpatient after treatment of pneumonia Patient is a pleasant 85-year-old male with history of cardiomyopathy and ischemic status post history of stent placement in the past 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, patient came into the hospital with several days history of increase wet cough and congestion associated with white to yellow sputum production 2 days ago developed increasing shortness of breath, also chills, presented to emergency department found to have a fever, patient is been having off-and-on chest pain since yesterday without any significant relief with nitro, patient is status post vaccination with: Vaccine, review of the data revealed that patient is on diuretic anticoagulation with oral anticoagulant also antiarrhythmic agents with amiodarone and Lasix, patient recalls cardiac cath and angiogram in the past with 2 stent placement one was done at [facility], he is unaware of his ejection fraction, his prior history significant for the in addition to above seizure disorder, dyslipidemia, chronic atrial fibrillation, prostate and bladder cancer, patient does have a remote history of smoking in the past quit several years ago Patient on arrival slightly hypertensive with fever of 100.4, sats were 93% on s upplemental oxygen with 2 L, white cell count is elevated to 26,000, BUN/creatinine 24 and 2.39, patient has been started on IV Rocephin with Zithromax, chest x-ray significant for developing right lower lobe and right upper lobe infiltrate, small bilateral pleural effusion more so on the left side compared right side, Objective - Vital Signs Vital signs: Vital Signs Temp 97.6 F 02/09/21 11:50 Pulse 79 02/09/21 11:50 Resp 16 02/09/21 14:00 BP 183/73 02/09/21 11:50 Pulse Ox 94 L 02/09/21 11:50 Intake & Output 02/08/21 02/09/21 02/09/21 18:59 06:59 18:59 Intake Total 780 300 600 Balance 780 300 600 Weight 72.7 kg Intake: IV 300 100 Piperacillin-Tazobactam 3 100 100 .375 gm In Sodium Chloride 0.9% 100 ml @ 25 mls/hr IVPB Q12H [facility] Rx# :[id number] Sodium Ferric Gluconat- 100 Sucrose 125 mg In Sodium Chloride 0.9% 100 ml @ 100 mls/hr IVPB DAILY [facility] Rx#:[id number] cefTRIAXone 2 gm In 100 Sodium Chloride 0.9% 50 ml @ 100 mls/hr IVPB Q24HR [facility] Rx#:[id number] Intake, IV Titration 100 Amount Piperacillin-Tazobactam 3 100 .375 gm In Sodium Chloride 0.9% 100 ml @ 25 mls/hr IVPB Q12H [facility] Rx# :[id number] Oral 480 200 500 Other: Voiding Method Diaper Diaper Diaper # Voids 3 - Exam - Constitutional General appearance: average body habitus, cooperative, disheveled - EENT Eyes: EOMI, PERRLA Ears: bilateral: normal - Neck Neck: normal ROM Carotids: bilateral: upstroke normal Thyroid: bilateral: normal size - Respiratory Respiratory: bilateral: rales (With bronchial breath sounds bilaterally), dullness and decreased air entry more than one third on the left side - Cardiovascular Rhythm: regular Heart sounds: normal: S1, S2 - Gastrointestinal General gastrointestinal: normal bowel sounds - Integumentary Integumentary: normal - Neurologic Neurologic: CNII-XII intact - Musculoskeletal Musculoskeletal: gait normal, generalized weakness, strength equal bilaterally - Psychiatric Psychiatric: A&O x's 3, appropriate affect, intact judgment & insight - Labs CBC & Chem 7: 02/09/21 07:31 02/09/21 07:31 Labs: Abnormal Lab Results - Last 24 Hours (Table) 02/09/21 02/09/21 02/09/21 Range/Units 07:31 07:31 07:31 RBC 3.29 L (4.30-5.90) m/uL Hgb 8.4 L (13.0-17.5) gm/dL Hct 26.6 L (39.0-53.0) % Plt Count 75 L (150-450) k/uL Lymphocytes # (Manual) 0.65 L (1.0-4.8) k/uL Monocytes # (Manual) 1.01 H (0-1.0) k/uL Carbon Dioxide 33 H (22-30) mmol/L BUN 30 H (9-20) mg/dL Creatinine 2.46 H (0.66-1.25) mg/dL Glucose 110 H (74-99) mg/dL C-Reactive Protein 2.1 H (<1.0) mg/dL Procalcitonin 0.61 H (0.02-0.09) ng/mL Urine Protein (Negative) Urine Blood (Negative) Urine RBC (0-5) /hpf Urine WBC Clumps (None) /hpf Triple Phos Crystals (None) /hpf Amorphous Sediment (None) /hpf Urine Mucus (None) /hpf 02/09/21 Range/Units 09:04 RBC (4.30-5.90) m/uL Hgb (13.0-17.5) gm/dL Hct (39.0-53.0) % Plt Count (150-450) k/uL Lymphocytes # (Manual) (1.0-4.8) k/uL Monocytes # (Manual) (0-1.0) k/uL Carbon Dioxide (22-30) mmol/L BUN (9-20) mg/dL Creatinine (0.66-1.25) mg/dL Glucose (74-99) mg/dL C-Reactive Protein (<1.0) mg/dL Procalcitonin (0.02-0.09) ng/mL Urine Protein 1+ H (Negative) Urine Blood Moderate H (Negative) Urine RBC >182 H (0-5) /hpf Urine WBC Clumps Rare H (None) /hpf Triple Phos Crystals Occasional H (None) /hpf Amorphous Sediment Rare H (None) /hpf Urine Mucus Rare H (None) /hpf Microbiology - Last 24 Hours (Table) 02/09/21 10:38 Sputum Culture - Preliminary Sputum 02/04/21 10:46 Blood Culture - Preliminary Blood No Growth after 120 hours 02/04/21 10:45 Blood Culture - Preliminary Blood No Growth after 120 hours Assessment and Plan Assessment: Acute hypoxic respiratory failure Left-sided worsening pleural effusion Right-sided pneumonia likely community-acquired pneumonia involving middle lobe with nodular appearance neoplasm however cannot be excluded Left-sided lingular lobe pneumonia Acute exacerbation of heart failure likely chronic systolic heart failure Small bilateral pleural effusion more so on the left side compared to right side Ischemic cardiomyopathy Chronic atrial fibrillation on anticoagulation Plan: Proceed with left thoracentesis Continue supplemental oxygen Continue IV antibiotics Follow-up on ultrasound of the chest, findings reviewed and discussed with the patient as well as primary service Reviewed computed tomography scan with findings as noted above Cardiovascular evaluation prior cardiovascular services Continue current plan of care with treatment with antibiotics patient will need short-term computed tomography scan as outpatient after 6-8 weeks of therapy Time with Patient: Greater than 30
--- NOTE | 2021-02-09 15:53 | P.PCN ---
Date of Procedure: 02/09/21 Preoperative Diagnosis: Left-sided parapneumonic pleural effusion Postoperative Diagnosis: As above Procedure(s) Performed: Left thoracentesis Anesthesia: local Surgeon: Luis Gates Estimated Blood Loss (ml): 0 Indications for Procedure: As above Operative Findings: As below Description of Procedure: Informed consent obtained from patient prepared and draped in a usual fashion ultrasound was utilized to look into the maximum depth of the fluid, 1% lidocaine infiltrated in A. fib glucoses in the left side mid scapular line, gauge 24 needle was placed into pleural space pleural fluid aspirated, followed by stab incision was performed of 1/8 of an inch, catheter in needle was placed into pleural cavity needle was withdrawn catheter left in left pleural space 600 mL of slightly turbid yellow mucinous pleural fluid aspirated patient tolerated procedure well no complication noted, chest x-rays pending fluid is sent for Gram stain and culture cytology, cell count and differential and biochemistry
--- NOTE | 2021-02-09 16:17 | XR ---
EXAMINATION TYPE: XR chest 1V portable DATE OF EXAM: 02/09/2021 CLINICAL HISTORY: Difficulty breathing status post left-sided thoracentesis. TECHNIQUE: Single AP portable semiupright view of the chest is obtained. COMPARISON: Chest x-ray from one day earlier and older studies. FINDINGS: Improved left-sided effusion after thoracentesis. No pneumothorax. Chronic parenchymal christina nges bilaterally with persistent bibasilar opacities. Stable mild cardiomegaly with atherosclerotic a albert. Osseous structures are demineralized. Calcified Pleural plaques bilaterally again seen. IMPRESSION: Improved left-sided pleural effusion after thoracentesis. No pneumothorax.
[2021-02-09 16:41] LABS: Appearance,BF Cloudy
[2021-02-09 16:42] LABS: Nucleated Cells, Body Fluid 2090 /uL; RBC, Body Fluid 70 /uL
[2021-02-09 16:45] LABS: Mononuclear WBC,Body Fluid 95 %; Polynuclear WBC,Body Fluid 5 %; Total Cells Counted,Body Fluid 100
[2021-02-09] MEDS: DOXAZOSIN 2 MG TAB PO SCH (20:28)
--- NOTE | 2021-02-09 23:39 | PN ---
PROGRESS NOTE DATE OF SERVICE: 02/09/2021 REASON FOR FOLLOWUP: Pneumonia. INTERVAL HISTORY: The patient is afebrile. The patient is breathing more comfortably. Patient denies having any chest pain. He continues to have a cough with occasional sputum production. No nausea, no vomiting. No abdominal pain or diarrhea. Patient status post thoracocentesis with evidence of cloudy fluid. PHYSICAL EXAMINATION: Blood pressure 155/70 with a pulse of 80, temperature 97.5. He is 96% on 2 L nasal cannula. General description is an elderly male lying in bed in no distress. RESPIRATORY SYSTEM: Unlabored breathing. Decreased breath sounds at the base. No wheeze. HEART: S1, S2. Regular rate and rhythm. ABDOMEN: Soft. No tenderness. LABS: Hemoglobin 8.4, white count 7.2, BUN of 30, creatinine is 2.46. Procalcitonin was 0.61. Pleural fluid was cloudy, white cells 2000s, white cells predominantly polynuclear. DIAGNOSTIC IMPRESSION AND PLAN: Patient with left lower lobe pneumonia with concern for possible parapneumonic effusion, status post thoracocentesis. Those cultures will be followed. Antibiotic in the form of Zosyn to continue. Monitor his clinical course closely. MMODL / IJN: [id number] /
[2021-02-10 00:40] LABS: Total Protein, Body Fluid 2210 mg/dL
[2021-02-10 01:42] LABS: LDH, Body Fluid Source Pleural Fluid
[2021-02-10] MEDS: HYDROcodone/APAP 10-325MG 1 EACH TAB PO PRN ×3 (04:21→21:32)
[2021-02-10] MEDS: carvediloL 6.25 MG TAB PO SCH (06:28)
[2021-02-10] MEDS: amLODIPine 5 MG TAB PO SCH (06:28)
[2021-02-10] MEDS: ISOSORBIDE MONONITRATE ER 30 MG TAB.ER.24H PO SCH (06:28)
[2021-02-10] MEDS: AMIODARONE 100 MG TAB PO SCH (06:28)
[2021-02-10] MEDS: ASPIRIN 81 MG PO SCH (06:28)
[2021-02-10 07:20] LABS: HCT 25.8 % (39.0-53.0); HGB 8.5 gm/dL (13.0-17.5); Hypochromasia Slight; MCH 26.2 pg (25.0-35.0); MCHC 32.9 g/dL (31.0-37.0); MCV 79.4 fL (80.0-100.0); Mean Platelet Volume 13.2; RBC 3.24 m/uL (4.30-5.90); RDW 15.4 % (11.5-15.5)
[2021-02-10 07:24] LABS: Platelet Count 96 k/uL (150-450)
[2021-02-10 07:30] LABS: Calcium 8.3 mg/dL (8.4-10.2); Potassium 4.4 mmol/L (3.5-5.1)
[2021-02-10 07:58] VITALS: BMI 24.0
[2021-02-10] MEDS: hydrALAZINE HCL 50 MG TAB PO SCH ×3 (08:42→20:20)
[2021-02-10] MEDS: FUROSEMIDE 40 MG TAB PO SCH (08:43)
[2021-02-10] MEDS: SODIUM FERRIC GLUCONAT-SUCROSE 125 MG in SODIUM CHLORIDE 0.9% 100 ML IVPB SCH (08:43)
[2021-02-10 09:20] LABS: Lymphocytes # (M) 0.72 k/uL (1.0-4.8); Monocytes # (M) 1.26 k/uL (0-1.0); Neutrophils # (M) 7.02 k/uL (1.3-7.7); Neutrophils % (M) 78 %; Nucleated Red Blood Cells 0 /100 WBC (0-0); Total Cells Counted 100
[2021-02-10 09:23] LABS: Large Platelets Present
--- NOTE | 2021-02-10 10:16 | P.PN ---
Subjective Patient is seen in follow-up for acute kidney injury on chronic kidney disease. Renal function a little better. Currently on 2 L nasal cannula. Has been ambulating. Cough improved. No chest pain. No changes overnight. Vital signs are stable. General: The patient appeared well nourished and normally developed. HEENT: Head exam is unremarkable. Neck is without jugular venous distension. LUNGS: Breath sounds decreased. HEART: Rate and Rhythm are regular. ABDOMEN: Soft, nontender. EXTREMITITES: No edema. Objective - Vital Signs Vital signs: Vital Signs Temp 97.4 F L 02/10/21 08:00 Pulse 64 02/10/21 08:00 Resp 18 02/10/21 08:00 BP 149/66 02/10/21 08:00 Pulse Ox 98 02/10/21 08:00 Intake & Output 02/09/21 02/10/21 02/10/21 18:59 06:59 18:59 Intake Total 918 250 Output Total 600 Balance 318 250 Weight 65.5 kg 65.5 kg Intake: IV 200 10 Invasive Line 2 10 Piperacillin-Tazobactam 3 100 .375 gm In Sodium Chloride 0.9% 100 ml @ 25 mls/hr IVPB Q12H [facility] Rx# :[id number] Sodium Ferric Gluconat- 100 Sucrose 125 mg In Sodium Chloride 0.9% 100 ml @ 100 mls/hr IVPB DAILY [facility] Rx#:[id number] Oral 718 240 Output: Other 600 Other: Voiding Method Diaper Diaper Diaper # Voids 2 2 - Labs CBC & Chem 7: 02/10/21 06:43 02/10/21 06:43 Labs: Abnormal Lab Results - Last 24 Hours (Table) 02/09/21 02/09/21 02/10/21 Range/Units 07:31 09:04 06:43 RBC 3.24 L (4.30-5.90) m/uL Hgb 8.5 L (13.0-17.5) gm/dL Hct 25.8 L (39.0-53.0) % MCV 79.4 L (80.0-100.0) fL Plt Count 96 L (150-450) k/uL Lymphocytes # (Manual) 0.72 L (1.0-4.8) k/uL Monocytes # (Manual) 1.26 H (0-1.0) k/uL Carbon Dioxide (22-30) mmol/L BUN (9-20) mg/dL Creatinine (0.66-1.25) mg/dL Calcium (8.4-10.2) mg/dL Procalcitonin 0.61 H (0.02-0.09) ng/mL Urine Protein 1+ H (Negative) Urine Blood Moderate H (Negative) Urine RBC >182 H (0-5) /hpf Urine WBC Clumps Rare H (None) /hpf Triple Phos Crystals Occasional H (None) /hpf Amorphous Sediment Rare H (None) /hpf Urine Mucus Rare H (None) /hpf 02/10/21 Range/Units 06:43 RBC (4.30-5.90) m/uL Hgb (13.0-17.5) gm/dL Hct (39.0-53.0) % MCV (80.0-100.0) fL Plt Count (150-450) k/uL Lymphocytes # (Manual) (1.0-4.8) k/uL Monocytes # (Manual) (0-1.0) k/uL Carbon Dioxide 32 H (22-30) mmol/L BUN 29 H (9-20) mg/dL Creatinine 2.37 H (0.66-1.25) mg/dL Calcium 8.3 L (8.4-10.2) mg/dL Procalcitonin (0.02-0.09) ng/mL Urine Protein (Negative) Urine Blood (Negative) Urine RBC (0-5) /hpf Urine WBC Clumps (None) /hpf Triple Phos Crystals (None) /hpf Amorphous Sediment (None) /hpf Urine Mucus (None) /hpf Microbiology - Last 24 Hours (Table) 02/09/21 15:30 Gram Stain - Preliminary Pleural Fluid Body Fluid Culture - Preliminary 02/09/21 10:38 Gram Stain - Preliminary Sputum Sputum Culture - Preliminary 02/09/21 15:30 Acid Fast Bacilli Smear - Final Pleural Fluid Acid Fast Bacilli Culture - Preliminary 02/09/21 15:30 Fungal Culture - Preliminary Pleural Fluid 02/04/21 10:46 Blood Culture - Preliminary Blood No Growth after 120 hours 02/04/21 10:45 Blood Culture - Preliminary Blood No Growth after 120 hours Assessment and Plan Plan: Assessment: 1. Acute kidney injury secondary to ATN secondary to infection. Renal function is fairly stable. Creatinine 2.37 today. Trace proteinuria on UA with RBCs. UPC 0.9. No hydronephrosis noted on kidney ultrasound. 2. Chronic kidney disease stage IV. Creatinine in August 2019 was 2.1. 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 Etiology is nephrosclerosis. 3. Pneumonia maintained on antibiotics. 4. Coronary artery disease status post cardiac stenting. 5. Anemia of chronic kidney disease. Iron deficiency noted. Maintained on Aranesp. 6. Hypertension with chronic kidney disease. Stable. 7. Volume overload. Maintained on Lasix. 8. Hypokalemia from diuresis. Replaced. Better. Plan: Maintain oral Lasix. Maintain IV iron. Avoid nephrotoxins. Continue to monitor renal function and urine output. Check serologies.
--- NOTE | 2021-02-10 11:03 | P.PN ---
Subjective This is a pleasant 85 years old male with past medical history of hypertension, hyperlipidemia, atrial fibrillation and seizure disorder, he has history of prostate and bladder cancer. Patient states he presents because of dyspnea wanted days duration associated with cough and clear phlegm and some chest tightness rather than pain. No abdominal pain or nausea vomiting or diarrhea. However patient complaining of from right leg pain with no history of fall Patient has fever of 100.4 on admission, his vitals stable. Laboratory showing leukocytosis with WBC 26.20. Hemoglobin 9.4, platelet count is low as 118. INR is normal. Creatinine is 2.3 which is at baseline Urinalysis showing moderate blood and hematuria Coronary first not detected. Chest x-ray showing right lower and upper lobe infiltrate Patient was started on Rocephin and Zithromax. 02/05/2021 Patient breathing looks better today. Patient is not coughing. No chest pain. He is saturating well on 2 L oxygen via nasal cannula, it looks like his pneumonia is improving. However this morning patient vomited one time, no good appetite and he had no bowel movement. In short is started for him. Blood pressure is better controlled after increasing dose of Imdur 30 up to 60 mg and at index is seen at night. looks improvement with WBC, hemoglobin and platelets are trending down. Actually WBCs back to normal today. Creatinine 2.5 to close to baseline of 2.1., Most likely it's chronic kidney disease. procalcitonin is 4.6 Neurology input is appreciated, no further workup and follow-up outpatient as needed CT of the chest showing any areas of ground glass opacity that could reflect multifocal infectious process. Suspect mild degree of alveolar and interstitial edema on background infectious process. Areas of nodularity are concerning short-term follow-up CT is advised. Patient informed about his nodule. Discussed the case with the pulmonary service, most likely pneumonia but cancer cannot be entirely excluded for now, however he will need as outpatient monitoring 02/06/2021 Patient breathing cuevas states his the same with exertion however address he randee es any dyspnea. He has poor appetite however he is using Ensure, no vomiting he has a bowel movement. His hematuria resolved. Patient still wants to go home however medically he is not.. His blood pressure is still elevated 176/76 after at index Zosyn and Imdur, we will keep monitoring for now. His hemoglobin and platelets slightly trending down to 8.2 and 70 4K respectively. No leukocytosis. Creatinine is trending 2.3, 2.5 and 2.7. We will check a bladder scan, consult nephrology service. Remains on ceftriaxone and Zithromax antibiotics. Physical therapy is pending Echocardiogram is pending 02/07/2021 Patient states that his breathing is the samePeriod with minimal. Minimal chest pain. Actually patient was asking if he can be discharged home however he agrees to see for he is not medically stable. He thinks there is no much improvement, he also reports poor appetite however he can't consume Ensure. No vomiting, he got good bowel movement. Hemodynamically he is a stable, And blood pressure better today 152/50.. labs showing bicytopenia with low hemoglobin 8.0 and low platelet count 71, WBC is normal at 7.7K. B12 is actually elevated. Creatinine is stable at 2.7. Renal ultrasound showing medical renal disease. [employer] evaluated the patient and 1 dose of IV Lasix was given. 02/08/2021 Patient is still complaining of from dyspnea with no significant worsening however his oxygen requirement went up to 3 L/m and he is saturating at 93-94%. Distal Vitas looks stable. His creatinine is trending down to 2.2, his CBC almost a stable with platelet count 70 4K, hemoglobin digital better today 0.7 and no leukocytosis. Blood pressure is stable. A repeat chest x-ray today showing left pleural effusion, chest ultrasound was ordered and his antibiotics were changed to Zosyn. 02/09/2021 Patient still with mild tachypnea, distal asking when he will be discharged home. He denies chest pain or abdominal pain or vomiting. He is hemodynamically stable and he is saturating 20 L/m of oxygen and high 90s. His labs are stable including normal WBC hemoglobin 8.4 and platelets of 75K. Creatinine improved gradually developed 0.4 while he is on oral Lasix. No need for endoscopy for GI team, keep monitoring hemoglobin. He remains on Zosyn, id team on the case 02/10/2021 this is a pleasant 85 years old male who presents with bilateral pneumonia more on the right side and CAT scan showed right mid lung nodule 2.2 x 1.3 cm suspected to be part of the pneumonia infection however the tumor could not be excluded entirely and patient will need outpatient follow-up in 6-[address] Gates. Also patient had ischemic cardiomyopathy and chronic kidney disease stage III with creatinine around 2+. Patient was initially managed WITH ceftriaxone and Zithromax, however patient showed minimal improvement and repeat chest x-ray 2 days ago showed left pleural effusion, the patient gave consent underwent left-sided thoracocentesis yesterday draining 600 L MODERATELY turbid fluid which was sent for culture and other studies, please refer to pulmonary notes. blood pressure is better controlled and currently 149/66. Patient WBCs normal 7.2, hemoglobin slightly low at 8.5, platelets improved to 90 K. Creatinine is stable around 2.3, oxygen requirement stable around 2-3 L/m Currently patient is continued on Zosyn pending culture results from the pleural fluid. Objective - Vital Signs Vital signs: Vital Signs Temp 97.4 F L 02/10/21 08:00 Pulse 64 02/10/21 08:00 Resp 18 02/10/21 08:00 BP 149/66 02/10/21 08:00 Pulse Ox 98 02/10/21 08:00 Intake & Output 02/09/21 02/10/21 02/10/21 18:59 06:59 18:59 Intake Total 918 250 Output Total 600 Balance 318 250 Weight 65.5 kg 65.5 kg Intake: IV 200 10 Invasive Line 2 10 Piperacillin-Tazobactam 3 100 .375 gm In Sodium Chloride 0.9% 100 ml @ 25 mls/hr IVPB Q12H [facility] Rx# :[id number] Sodium Ferric Gluconat- 100 Sucrose 125 mg In Sodium Chloride 0.9% 100 ml @ 100 mls/hr IVPB DAILY [facility] Rx#:[id number] Oral 718 240 Output: Other 600 Other: Voiding Method Diaper Diaper Diaper # Voids 2 2 - Exam GENERAL: The patient is alert and oriented x3, not in any acute distress. Well developed, well nourished. HEENT: Pupils are round and equally reacting to light. EOMI. No scleral icterus. No conjunctival pallor. Normocephalic, atraumatic. No pharyngeal erythema. No thyromegaly. CARDIOVASCULAR: S1 and S2 present. No murmurs, rubs, or gallops. PULMONARY: Chest is clear to auscultation, no wheezing or crackles. ABDOMEN: Soft, nontender, nondistended, normoactive bowel sounds. No palpable organomegaly. MUSCULOSKELETAL: No joint swelling or deformity. EXTREMITIES: No cyanosis, clubbing, or pedal edema. NEUROLOGICAL: Gross neurological examination did not reveal any focal deficits. SKIN: No rashes. No petechiae - Labs CBC & Chem 7: 02/10/21 06:43 02/10/21 06:43 Labs: Abnormal Lab Results - Last 24 Hours (Table) 02/09/21 02/09/21 02/10/21 Range/Units 07:31 09:04 06:43 RBC 3.24 L (4.30-5.90) m/uL Hgb 8.5 L (13.0-17.5) gm/dL Hct 25.8 L (39.0-53.0) % MCV 79.4 L (80.0-100.0) fL Plt Count 96 L (150-450) k/uL Lymphocytes # (Manual) 0.72 L (1.0-4.8) k/uL Monocytes # (Manual) 1.26 H (0-1.0) k/uL Carbon Dioxide (22-30) mmol/L BUN (9-20) mg/dL Creatinine (0.66-1.25) mg/dL Calcium (8.4-10.2) mg/dL Procalcitonin 0.61 H (0.02-0.09) ng/mL Urine Protein 1+ H (Negative) Urine Blood Moderate H (Negative) Urine RBC >182 H (0-5) /hpf Urine WBC Clumps Rare H (None) /hpf Triple Phos Crystals Occasional H (None) /hpf Amorphous Sediment Rare H (None) /hpf Urine Mucus Rare H (None) /hpf 02/10/21 Range/Units 06:43 RBC (4.30-5.90) m/uL Hgb (13.0-17.5) gm/dL Hct (39.0-53.0) % MCV (80.0-100.0) fL Plt Count (150-450) k/uL Lymphocytes # (Manual) (1.0-4.8) k/uL Monocytes # (Manual) (0-1.0) k/uL Carbon Dioxide 32 H (22-30) mmol/L BUN 29 H (9-20) mg/dL Creatinine 2.37 H (0.66-1.25) mg/dL Calcium 8.3 L (8.4-10.2) mg/dL Procalcitonin (0.02-0.09) ng/mL Urine Protein (Negative) Urine Blood (Negative) Urine RBC (0-5) /hpf Urine WBC Clumps (None) /hpf Triple Phos Crystals (None) /hpf Amorphous Sediment (None) /hpf Urine Mucus (None) /hpf Microbiology - Last 24 Hours (Table) 02/09/21 15:30 Gram Stain - Preliminary Pleural Fluid Body Fluid Culture - Preliminary 02/09/21 10:38 Gram Stain - Preliminary Sputum Sputum Culture - Preliminary 02/09/21 15:30 Acid Fast Bacilli Smear - Final Pleural Fluid Acid Fast Bacilli Culture - Preliminary 02/09/21 15:30 Fungal Culture - Preliminary Pleural Fluid 02/04/21 10:46 Blood Culture - Preliminary Blood No Growth after 120 hours 02/04/21 10:45 Blood Culture - Preliminary Blood No Growth after 120 hours Assessment and Plan Assessment: Right upper lobe pneumonia, with left-sided pleural effusion, status post thoracocentesis on 02/09. Mostly gram-negative bacteremia Sepsis secondary to stop with leukocytosis and fever. Acute Kidney injury, improving Anemia with stable hemoglobin. Low appetite secondary to above Acute hematuria, mostly secondary to Cruz catheter and kidney stone. No further workup [per urologist] Right hip pain. Hip x-ray: No acute process Hypertension Hyperlipidemia Atrial fibrillation History of seizure disorder History of prostate and bladder cancer Chronic kidney disease, stage IV Plan: This is a pleasant 85 years old male who presents with right pneumonia. Continue with Zosyn, Pulmonary consult. Follow up outpatient for lung nodule with Dr. Gates follow up with correctional counselor , GI and ID team who are on the case, also pt was seen by urologist Labs and medication were reviewed.. Continue same treatment. Continue with symptomatic treatment. Resume home medication. Monitor lytes and vitals. DVT and GI prophylaxis. Further recommendations depends on the clinical course of the patient DVT prophylaxis: Patient was on Eliquis at home. Now is on hold GI Prophylaxis: Ppi PT/OT: Home with Family Prognosis is guarded
[2021-02-10] MEDS: PIPERACILLIN-TAZOBACTAM 3.375 GM in SODIUM CHLORIDE 0.9% 100 ML IVPB SCH (11:15)
[2021-02-10] MEDS ORDERED: NITROGLYCERIN SL TABS 0.4 MG TAB SUBLINGUAL ONE (11:25)
--- NOTE | 2021-02-10 11:33 | P.PN ---
Subjective Progress Note Date: 02/10/21 Principal diagnosis: Acute hypoxic respiratory failure Right-sided pneumonia likely community-acquired pneumonia involving right upper lobe and right lower lobe Acute exacerbation of heart failure likely chronic systolic heart failure Small bilateral pleural effusion more so on the left side compared to right side Ischemic cardiomyopathy Chronic atrial fibrillation on anticoagulation 02/10/2021, patient seen eval examined during morning rounds shortness of breath has been stable, was on 2 L oxygen is status post thoracentesis 600 mL of fluid has been removed, Gram stain has been negative many WBCs are seen, cultures are pending, patient get short of breath on activity and exertion, posterior evaluation patient have episode of chest pain left-sided, instructed RN to go ahead and give the nitro, we'll also check stat portable chest x-ray to look for delayed pneumothorax, foot cardiology on consult, troponin 2, if pain continues morphine can be added, will follow clinical course closely further recommendations pending, critical care time 35 minutes 02/09/2021, patient seen eval examined during the rounds labs reviewed medications care plan discussed, patient remains short of breath on activity and exertion, has been on 2 L oxygen, chest x-ray showed worsening of pleural effusion the left side ultrasound confirmed moderate pleural effusion I have discussed with the patient about thoracentesis process and cons explained along with alternative procedures and side effects also explained patient wants to proceed with thoracentesis 02/08/2021, patient seen eval examined during the rounds labs reviewed medications reviewed care plan discussed, respiratory status remains stable denies any chest pain breathing comfortably, however patient is slightly more tachypneic, patient has been requesting for discharge, patient noted to have low-grade fever, saturation is 93% on 3 L, chest x-ray performed today shows further atelectasis of the left lung with increased left lower lobe density will do ultrasound of the chest to evaluate for extended a pleural effusion 02/07/2021, patient was started on bronchodilator due to wheezing, patient is being evaluated by nephrology for acute kidney injury likely related to ATN, 02/06/2021, patient seen eval examined Estrace status improved now denies any cough or sputum production, denies any chest pain patient is on room air now, patient is getting therapy for pneumonia I have explained the patient about com puted tomography scan finding, plan to get an another short-term computed tomography scan as outpatient if patient discharged home recommend on oral antibiotics with follow-up in the office 02/05/2021, patient seen eval examined during the rounds labs reviewed medications reviewed care plan discussed, respiratory status improved a bit from yesterday still short of breath, not producing any sputum, denies any chest pain computed tomography scan of the chest has been reviewed, patient noted to have extensive bilateral emphysematous changes along with a small to moderate left- sided pleural effusion, groundglass attenuation noted infiltrative findings in the lingula lobe, also on the right side there is nodular infiltrate in the right middle lobe, likely suggestive of pneumonia neoplasm less likely however but cannot be excluded, patient will need long-term follow-up with a short-term computed tomography scan as outpatient after treatment of pneumonia Patient is a pleasant 85-year-old male with history of cardiomyopathy and ischemic status post history of stent placement in the past 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, patient came into the hospital with several days history of increase wet cough and congestion associated with white to yellow sputum production 2 days ago developed increasing shortness of breath, also chills, presented to emergency department found to have a fever, patient is been having off-and-on chest pain since yesterday without any significant relief with nitro, patient is status post vaccination with: Vaccine, review of the data revealed that patient is on diuretic anticoagulation with oral anticoagulant also antiarrhythmic agents with amiodarone and Lasix, patient recalls cardiac cath and angiogram in the past with 2 stent placement one was done at [facility], he is unaware of his ejection fraction, his prior history significant for the in addition to above seizure disorder, dyslipidemia, chronic atrial fibrillation, prostate and bladder cancer, patient does have a remote history of smoking in the past quit several years ago Patient on arrival slightly hypertensive with fever of 100.4, sats were 93% on supplemental oxygen with 2 L, white cell count is elevated to 26,000, BUN/creatinine 24 and 2.39, patient has been started on IV Rocephin with Zithromax, chest x-ray significant for developing right lower lobe and right upper lobe infiltrate, small bilateral pleural effusion more so on the left side compared right side, Objective - Vital Signs Vital signs: Vital Signs Temp 97.4 F L 02/10/21 08:00 Pulse 64 02/10/21 08:00 Resp 18 02/10/21 08:00 BP 149/66 05/28/21 08:00 Pulse Ox 98 02/10/21 08:00 Intake & Output 02/09/21 02/10/21 02/10/21 18:59 06:59 18:59 Intake Total 918 250 Output Total 600 Balance 318 250 Weight 65.5 kg 65.5 kg Intake: IV 200 10 Invasive Line 2 10 Piperacillin-Tazobactam 3 100 .375 gm In Sodium Chloride 0.9% 100 ml @ 25 mls/hr IVPB Q12H TOY Rx# :[id number] Sodium Ferric Gluconat- 100 Sucrose 125 mg In Sodium Chloride 0.9% 100 ml @ 100 mls/hr IVPB DAILY [facility] Rx#:[id number] Oral 718 240 Output: Other 600 Other: Voiding Method Diaper Diaper Diaper # Voids 2 2 - Exam - Constitutional General appearance: average body habitus, cooperative, disheveled - EENT Eyes: EOMI, PERRLA Ears: bilateral: normal - Neck Neck: normal ROM Carotids: bilateral: upstroke normal Thyroid: bilateral: normal size - Respiratory Respiratory: bilateral: rales (With bronchial breath sounds bilaterally), dullness and decreased air entry more than one third on the left side - Cardiovascular Rhythm: regular Heart sounds: normal: S1, S2 - Gastrointestinal General gastrointestinal: normal bowel sounds - Integumentary Integumentary: normal - Neurologic Neurologic: CNII-XII intact - Musculoskeletal Musculoskeletal: gait normal, generalized weakness, strength equal bilaterally - Psychiatric Psychiatric: A&O x's 3, appropriate affect, intact judgment & insight - Labs CBC & Chem 7: 02/10/21 06:43 02/10/21 06:43 Labs: Abnormal Lab Results - Last 24 Hours (Table) 02/09/21 02/10/21 02/10/21 Range/Units 07:31 06:43 06:43 RBC 3.24 L (4.30-5.90) m/uL Hgb 8.5 L (13.0-17.5) gm/dL Hct 25.8 L (39.0-53.0) % MCV 79.4 L (80.0-100.0) fL Plt Count 96 L (150-450) k/uL Lymphocytes # (Manual) 0.72 L (1.0-4.8) k/uL Monocytes # (Manual) 1.26 H (0-1.0) k/uL Carbon Dioxide 32 H (22-30) mmol/L BUN 29 H (9-20) mg/dL Creatinine 2.37 H (0.66-1.25) mg/dL Calcium 8.3 L (8.4-10.2) mg/dL Procalcitonin 0.61 H (0.02-0.09) ng/mL Microbiology - Last 24 Hours (Table) 02/09/21 15:30 Gram Stain - Preliminary Pleural Fluid Body Fluid Culture - Preliminary 02/09/21 10:38 Gram Stain - Preliminary Sputum Sputum Culture - Preliminary 02/09/21 15:30 Acid Fast Bacilli Smear - Final Pleural Fluid Acid Fast Bacilli Culture - Preliminary 02/09/21 15:30 Fungal Culture - Preliminary Pleural Fluid 02/04/21 10:46 Blood Culture - Preliminary Blood No Growth after 120 hours 02/04/21 10:45 Blood Culture - Preliminary Blood No Growth after 120 hours Assessment and Plan Assessment: Left-sided chest pain Acute hypoxic respiratory failure Left-sided worsening pleural effusion Right-sided pneumonia likely community-acquired pneumonia involving middle lobe with nodular appearance neoplasm however cannot be excluded Left-sided lingular lobe pneumonia Acute exacerbation of heart failure likely chronic systolic heart failure Small bilateral pleural effusion more so on the left side compared to right side Ischemic cardiomyopathy Chronic atrial fibrillation on anticoagulation Plan: We'll get stat portable chest x-ray troponin, cardiology evaluation, patient can be resumed on direct oral anticoagulant Status post left thoracentesis on 02/09 over 600 mL of slightly turbid yellow fluid removed Gram stain negative cultures however is pending likely exudative Continue supplemental oxygen Continue IV antibiotics Follow-up on ultrasound of the chest, findings reviewed and discussed with the patient as well as primary service Reviewed computed tomography scan with findings as noted above Cardiovascular evaluation prior cardiovascular services Continue current plan of care with treatment with antibiotics patient will need short-term computed tomography scan as outpatient after 6-8 weeks of therapy
--- NOTE | 2021-02-10 11:56 | XR ---
EXAMINATION TYPE: XR chest 1V DATE OF EXAM: 02/10/2021 COMPARISON: Chest x-ray 02/09/2021 HISTORY: Postthoracentesis TECHNIQUE: Single frontal view of the chest is obtained. FINDINGS: Patient is rotated. Bibasilar density persists. Cardiac mediastinal silhouette is unchange d. There is an overlying skinfold. There are overlying artifacts. Suspect a calcified pleural plaques present. No evident pneumothorax. IMPRESSION: No evident complication status post thoracentesis. Follow-up as indicated, rotated exam. Calcified pleural plaques, correlate for asbestos related disease.
--- NOTE | 2021-02-10 13:11 | P.CRDCN ---
History of Present Illness History of present illness: HISTORY OF PRESENTING ILLNESS This is a pleasant 85-year-old male past medical history significant for paroxysmal atrial fibrillation not on nursing home anticoagulation secondary to recent GI bleeding, coronary artery disease status post PCI, myocardial infarction according to the patient exact details unavailable hypertension, dyslipidemia, bladder cancer and former nicotine dependence. He follows in the office with Dr. Mora out of town. We have been asked to see in consultation for chest pain. He has been admitted here since 02/04 being treated for pneumonia and sepsis. He is s/p left thoracentesis with 600 ml fluid removed. This morning he had an episode of pain in the right anterior region described as heavy and sharp. The pain is exacerbated by coughing and deep breathing. He was given one dose of nitroglycerin. He is seen and examined sitting up in bed in no acute distress. He continues to be short of breath and is mildly tachyneic. Echocardiogram obtained on this admission reveals preserved LV systolic function with ejection fraction 55-60% with daughter at mitral regurgitation. DIAGNOSTICS EKG reveals sinus mechanism heart rate of 76 with right bundle branch block and left anterior fascicular block. Telemetry tracings indicate persistent sinus mechanism. Chest xray this morning status post thoracentesis reveals calcified pleural plaques with no evident pneumothorax. Laboratory reviewed, WBC 9 down from 26 on admission, hemoglobin 8.5, creatinine 2.37, pro-calcitonin 0.61, cardiac enzymes negative 2, and to proBNP 2740, sodium 140 and potassium 4.4. Current cardiac medications include amiodarone 100 mg daily, aspirin 81 mg daily, atorvastatin 40 mg daily, Coreg 6.25 mg daily, Lasix 40 mg every other day, Imdur 30 mg daily, amlodipine 5 mg daily and hydralazine 100 mg 3 times a day. REVIEW OF SYSTEMS At the time of my exam: CONSTITUTIONAL: Denies fever or chills. CARDIOVASCULAR: Complains of shortness of breath and pleuritic chest pain. Denies orthopnea, PND or palpitations. RESPIRATORY: Denies cough. GASTROINTESTINAL: Denies abdominal pain, diarrhea, constipation, nausea or vomiting. MUSCULOSKELETAL: Denies myalgias. NEUROLOGIC: Denies numbness, tingling, headacbe or weakness. ENDOCRINE: Denies fatigue, weight change, polydipsia or polyurina. GENITOURINARY: Denies burning, hematuria or urgency with micturation. HEMATOLOGIC: Denies history of anemia or bleeding. PHYSICAL EXAMINATION Blood pressure 149/66 heart rate 64 afebrile and maintaining oxygen saturation on nasal cannula. CONSTITUTIONAL: No apparent distress. HEENT: Head is normocephalic. Pupils are equal, round. Sclerae anicteric. Mucous membranes of the mouth are moist. No JVD. No carotid bruit. CHEST EXAMINATION: Bibasilar rales, scattered rhonchi, no wheezes. Diminished bilaterally. No chest wall tenderness is noted on palpation or with deep breathing. HEART EXAMINATION: Regular rate and rhythm. S1, S2 heard. Systolic ejection murmur at the base, no gallops or rub. ABDOMEN: Soft, nontender. Positive bowel sounds. EXTREMITIES: 2+ peripheral pulses, no lower extremity edema and no calf tenderness. NEUROLOGIC EXAMINATION: Patient is awake, alert and oriented x3. ASSESSMENT Chest pain, pleuritic Pneumonia Sepsis Acute on chronic kidney disease Coronary artery disease, exact details unavailable Paroxysmal atrial fibrillation on long-term anticoagulation secondary to GI bleeding currently maintaining sinus mechanism Hypertension Dyslipidemia Former nicotine dependence PLAN Pain is atypical for angina, pleuritic in nature and likely related to underlying pneumonia. He is currently maintained on appropriate medical therapy. Diuretics managed per nephrology. Maintaining sinus mechanism and not on anti-coagulation due to recent GI bleed ing. Ongoing medical management. No further cardiac workup at this time, we'll follow along as needed. Follow-up with his primary texture artist upon discharge. Thank you kindly for this consultation. Nurse Practitioner note has been reviewed, I agree with a documented findings and plan of care. Patient was seen and examined. Past Medical History Past Medical History: Atrial Fibrillation, Cancer, Hyperlipidemia, Hypertension, Seizure Disorder Additional Past Medical History / Comment(s): bladder CA Prostate CA History of Any Multi-Drug Resistant Organisms: None Reported Past Surgical History: Bladder Surgery, Prostate Surgery Past Psychological History: No Psychological Hx Reported Smoking Status: Former smoker Past Alcohol Use History: None Reported Past Drug Use History: None Reported Medications and Allergies Home Medications Medication Instructions Recorded Confirmed Type Aspirin EC [Ecotrin Low Dose] 81 mg PO DAILY@0600 08/20/19 02/04/21 History Atorvastatin [Lipitor] 40 mg PO DAILY@1500 08/20/19 02/04/21 History Ferrous Sulfate [Feosol] 325 mg PO DAILY@1500 08/20/19 02/04/21 History Furosemide [Lasix] 40 mg PO Q48H 08/20/19 02/04/21 History HYDROcodone/APAP 10-325MG [Dakota 1 tab PO BID PRN 08/20/19 02/04/21 History 10-325] Nitroglycerin Sl Tabs [Nitrostat] 0.4 mg SL Q5M PRN 08/20/19 02/04/21 History Pantoprazole Sodium [Protonix] 40 mg PO DAILY@1500 08/20/19 02/04/21 History amLODIPine [Norvasc] 5 mg PO DAILY@0600 08/20/19 02/04/21 History hydrALAZINE HCL [Apresoline] 100 mg PO TID 08/20/19 02/04/21 History Amiodarone [Cordarone] 100 mg PO DAILY@59902/04/21 02/04/21 History Carvedilol [Coreg] 6.25 mg PO DAILY@59902/04/21 02/04/21 History Isosorbide Mononitrate ER [Imdur] 30 mg PO DAILY@59902/04/21 02/04/21 History Allergies Allergy/AdvReac Type Severity Reaction Status Date / Time No Known Allergies Allergy Verified 02/04/21 14:01 Physical Exam Vitals: Vital Signs Temp Pulse Pulse Resp BP Pulse Ox 02/10/21 08:00 97.4 F L 64 18 149/66 98 02/10/21 04:22 97.4 F L 80 18 179/89 95 02/10/21 02:00 16 02/09/21 23:48 97.8 F 79 16 159/63 94 L 02/09/21 20:15 97.5 F L 80 16 155/78 96 02/09/21 19:52 70 02/09/21 19:42 64 02/09/21 16:00 97.4 F L 74 16 153/65 95 02/09/21 14:00 16 Intake and Output 02/09/21 02/10/21 02/10/21 22:59 06:59 14:59 Intake Total 318 450 Output Total 600 Balance -282 450 Intake: IV 100 210 Invasive Line 2 10 Piperacillin-Tazobactam 3 100 .375 gm In Sodium Chloride 0.9% 100 ml @ 25 mls/hr IVPB Q12H [facility] Rx# :[id number] Sodium Ferric Gluconat- 100 100 Sucrose 125 mg In Sodium Chloride 0.9% 100 ml @ 100 mls/hr IVPB DAILY [facility] Rx#:[id number] Oral 218 240 Output: Other 600 Other: Voiding Method Diaper Diaper Diaper # Voids 2 2 2 Weight 65.5 kg 65.5 kg Results 02/10/21 06:43 02/10/21 06:43 CBC 02/10/21 Range/Units 06:43 WBC 9.0 (3.8-10.6) k/uL RBC 3.24 L (4.30-5.90) m/uL Hgb 8.5 L (13.0-17.5) gm/dL Hct 25.8 L (39.0-53.0) % Plt Count 96 L (150-450) k/uL Comprehensive Metabolic Panel 02/10/21 Range/Units 06:43 Sodium 140 (137-145) mmol/L Potassium 4.4 (3.5-5.1) mmol/L Chloride 103 (98-107) mmol/L Carbon Dioxide 32 H (22-30) mmol/L BUN 29 H (9-20) mg/dL Creatinine 2.37 H (0.66-1.25) mg/dL Glucose 99 (74-99) mg/dL Calcium 8.3 L (8.4-10.2) mg/dL Current Medications Generic Name Dose Route Start Last Admin Trade Name Freq PRN Reason Stop Dose Admin Acetaminophen 325 mg 02/05/21 15:34 02/08/21 18:02 Acetaminophen Tab 325 Mg Tab PO 325 mg Q6HR PRN Administration Fever and/ or Pain Hydrocodone Bitart/Acetaminophen 1 each 02/04/21 21:04 02/10/21 11:16 Hydrocodone/Apap 10-325mg 1 Each Tab PO 1 each Q6H PRN Administration Pain Albuterol/Ipratropium 3 ml 02/06/21 20:11 02/09/21 19:41 Ipratropium-Albuterol 3 Ml Neb INHALATION 3 ml RT-QID PRN Administration Shortness Of Breath Or Wheezing Amiodarone HCl 100 mg 02/05/21 06:00 02/10/21 06:28 Amiodarone 100 Mg Tab PO 100 mg DAILY@0600 [facility] Administration Amlodipine Besylate 5 mg 02/05/21 06:00 02/10/21 06:28 Amlodipine 5 Mg Tab PO 5 mg DAILY@0600 [facility] Administration Aspirin 81 mg 02/05/21 06:00 02/10/21 06:28 Aspirin 81 Mg PO 81 mg DAILY@0600 TOY Administration Atorvastatin Calcium 40 mg 02/04/21 15:00 02/09/21 11:52 Atorvastatin 40 Mg Tab PO 40 mg DAILY@1500 [facility] Administration Carvedilol 6.25 mg 02/05/21 06:00 02/10/21 06:28 Carvedilol 6.25 Mg Tab PO 6.25 mg DAILY@0600 TOY Administration Darbepoetin Matt 40 mcg 02/06/21 12:30 02/06/21 13:39 Darbepoetin Matt 40 Mcg/0.4 Ml Syringe SQ 40 mcg Q7D [facility] Administration Doxazosin Mesylate 2 mg 02/04/21 23:30 02/09/21 20:28 Doxazosin 2 Mg Tab PO 2 mg HS TOY Administration Furosemide 40 mg 02/08/21 09:00 02/10/21 08:43 Furosemide 40 Mg Tab PO 40 mg DAILY [facility] Administration Hydralazine HCl 100 mg 02/04/21 16:00 02/10/21 08:42 Hydralazine Hcl 50 Mg Tab PO 100 mg TID TOY Administration Ferric Sodium Gluconate 125 mg 110 mls @ 100 mls/hr 02/07/21 13:00 02/10/21 08:43 / Sodium Chloride IVPB 02/10/21 13:01 100 mls/hr DAILY TO[facility] Administration Piperacillin Sod/Tazobactam 100 mls @ 25 mls/hr 02/08/21 12:00 02/10/21 11:15 Sod 3.375 gm/ Sodium Chloride IVPB 25 mls/hr Q12H [facility] Administration Isosorbide Mononitrate 60 mg 02/05/21 06:00 02/10/21 06:28 Isosorbide Mononitrate Er 30 Mg Tab.Er.24h PO 60 mg DAILY@0600 TOY Administration Miscellaneous Information 1 each 02/04/21 12:19 Pneumonia Protocol Utilized 1 Each Misc PO ONCE PRN Per Protocol Ondansetron HCl 4 mg 02/05/21 08:08 02/08/21 09:37 Ondansetron 4 Mg/2 Ml Vial IVP 4 mg Q6HR PRN Administration Nausea And Vomiting Pantoprazole Sodium 40 mg 02/04/21 15:00 02/09/21 11:52 Pantoprazole 40 Mg Tablet PO 40 mg DAILY@1500 [facility] Administration Intake and Output 02/09/21 02/10/21 02/10/21 22:59 06:59 14:59 Intake Total 318 450 Output Total 600 Balance -282 450 Intake: IV 100 210 Invasive Line 2 10 Piperacillin-Tazobactam 3 100 .375 gm In Sodium Chloride 0.9% 100 ml @ 25 mls/hr IVPB Q12H [facility] Rx# :[id number] Sodium Ferric Gluconat- 100 100 Sucrose 125 mg In Sodium Chloride 0.9% 100 ml @ 100 mls/hr IVPB DAILY [facility] Rx#:[id number] Oral 218 240 Output: Other 600 Other: Voiding Method Diaper Diaper Diaper # Voids 2 2 2 Weight 65.5 kg 65.5 kg Patient Weight 02/11/21 06:59 Weight 65.5 kg 02/10/21 06:43 02/10/21 06:43
--- NOTE | 2021-02-10 15:28 | PN ---
PROGRESS NOTE DATE OF DICTATION: February 10, 2021 Patient is an 85-year-old white male admitted to the hospital with shortness of breath and weakness and fatigue. We are consulted because of anemia. The patient denies any abdominal pain. No rectal bleeding or melena. Records from [facility] were obtained yesterday which revealed the patient had diverticulosis with bleeding a year ago. Hemoglobin from today 8.5 g/dL. PHYSICAL EXAMINATION: VITAL SIGNS: Stable. Blood pressure 150/67, pulse rate 64, temperature 97.4 HEENT examination unremarkable. Conjunctivae pink. Sclerae anicteric. Oral cavity no lesions. NECK no JVD or lymph node enlargement. CHEST was clear to auscultation. HEART: Regular rate and rhythm. ABDOMEN: Soft. It was nontender, nondistended. Bowel sounds are positive. EXTREMITIES: No pedal edema. SKIN: No rashes. NEURO: He is alert and oriented x3. No focal deficits. LAB: Hemoglobin 8.5 g/dL. IMPRESSION: 1. Chest pain/shortness of breath. Cardiology has been consulted. 2. Normocytic normochromic anemia. Clinically no evidence of active bleeding. 3. History of atrial fibrillation. 4. History of hypertension and hyperlipidemia. RECOMMENDATIONS: 1. Continue to monitor CBC closely. 2. No plans for any endoscopic intervention at the present time since there is no evidence of active bleeding. 3. I had reviewed the records of prior colonoscopy a year ago done at [facility] area with the patient. 4. We will follow with you closely. Thank you for this consultation. MMODL / IJN: [id number] /
[2021-02-10] MEDS: PANTOPRAZOLE 40 MG TABLET PO SCH (16:59)
[2021-02-10] MEDS: ATORVASTATIN 40 MG TAB PO SCH (16:59)
--- NOTE | 2021-02-10 18:48 | PN ---
PROGRESS NOTE DATE OF SERVICE: 02/10/2021 REASON FOR FOLLOWUP: Pneumonia. INTERVAL HISTORY: The patient is currently afebrile. The patient is breathing comfortably. The patient denies having any chest pain. He did have a cough with occasional sputum. No vomiting. No abdominal pain or diarrhea. PHYSICAL EXAMINATION: Blood pressure 176/74 with a pulse of 73, temperature 97.2. She is 97% on 2 L nasal cannula. General description is an elderly male lying in bed in no distress. RESPIRATORY SYSTEM: Unlabored breathing with decreased breath sounds at the base. No wheeze. HEART: S1, S2. Regular rate and rhythm. ABDOMEN: Soft. No tenderness. LABS: Hemoglobin 8.5, white count 9.0. BUN of 29, creatinine is 2.37. Sputum as well as pleural fluid culture currently pending. DIAGNOSTIC IMPRESSION AND PLAN: Patient with left-sided pneumonia and parapneumonic effusion, status post thoracocentesis. Cultures are pending. Patient is covered with Zosyn; to continue, adjusting antibiotic further based on the culture report. Continue supportive care. MMODL / IJN: [id number] /
[2021-02-10] MEDS: DOXAZOSIN 2 MG TAB PO SCH (20:20)
[2021-02-10 21:41] LABS: DNA Double-Stranded POSITIVE (NEGATIVE)
[2021-02-11] MEDS: PIPERACILLIN-TAZOBACTAM 3.375 GM in SODIUM CHLORIDE 0.9% 100 ML IVPB SCH ×3 (00:12→23:21)
[2021-02-11 03:26] LABS: Protein, Total 6.1 g/dL (6.2-8.2)
[2021-02-11 04:45] LABS: Hepatitis A Antibody IgM Non-Reactive (Non-Reactive); Hepatitis B Core IgM Non-Reactive (Non-Reactive); Hepatitis B Surface Antigen Non-Reactive (Non-Reactive); Hepatitis C IgG Antibody Non-Reactive (Non-Reactive)
[2021-02-11] MEDS: amLODIPine 5 MG TAB PO SCH (06:06)
[2021-02-11] MEDS: carvediloL 6.25 MG TAB PO SCH (06:07)
[2021-02-11] MEDS: ISOSORBIDE MONONITRATE ER 30 MG TAB.ER.24H PO SCH (06:07)
[2021-02-11] MEDS: ASPIRIN 81 MG PO SCH (06:07)
[2021-02-11] MEDS: AMIODARONE 100 MG TAB PO SCH (06:07)
[2021-02-11] MEDS: PANTOPRAZOLE 40 MG TABLET PO SCH (08:45)
[2021-02-11] MEDS: ATORVASTATIN 40 MG TAB PO SCH (08:46)
[2021-02-11] MEDS: hydrALAZINE HCL 50 MG TAB PO SCH ×3 (08:46→20:18)
[2021-02-11] MEDS: FUROSEMIDE 40 MG TAB PO SCH (08:46)
[2021-02-11] MEDS: HYDROcodone/APAP 10-325MG 1 EACH TAB PO PRN ×2 (12:33→20:18)
--- NOTE | 2021-02-11 13:17 | PN ---
PROGRESS NOTE The patient is seen for followup for acute kidney injury. Serum creatinine at about 2.4-2.3 mg/dL today. Patient is incontinent. He has had a lot of wet briefs/diapers. Currently maintained on oral Lasix. EXAMINATION: Today patient is comfortable. Blood pressure 133/63, heart rate 66 per minute. He is afebrile. Examination of the heart S1, S2. Examination of lungs decreased breath sounds at bases. Abdomen is soft, nontender. Examination of lower extremities shows no significant edema. 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 LAB: Show sodium 140, potassium 4.4, BUN 29, creatinine 2.37 today, hemoglobin 8.5 g/dL. ASSESSMENT: 1. Acute kidney injury, acute tubular necrosis related to infection. Continue with current dose of oral Lasix. 2. Chronic kidney disease, stage 4. Baseline creatinine about 2.1. 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 Etiology is nephrosclerosis. 3. Pneumonia, maintained on antibiotics. 4. Coronary artery disease status post coronary stenting. 5. Hypertension associated with chronic kidney disease. 6. Volume overload, maintained on oral Lasix. 7. Hypokalemia secondary to diuresis status post replacement. PLAN: Continue current dose of Lasix. ALONDRA and anti double stranded DNA were positive, although serum creatinine is about the same as it was previously. This may need further workup as outpatient and at this time I would not pursue a kidney biopsy yet. This can be considered as outpatient for workup of his as a CKD and proteinuria. Serum creatinine is exactly the same as it was in 2019. MMODL / IJN: [id number] /
--- NOTE | 2021-02-11 18:12 | PN ---
PROGRESS NOTE DATE OF SERVICE: 02/11/2021 REASON FOR FOLLOWUP: Pneumonia and possible empyema. INTERVAL HISTORY: The patient is currently afebrile. Patient is breathing comfortably on room air. Denies any chest pain or shortness of breath. He did have a cough. No worsening. No nausea, no vomiting. No abdominal pain. No diarrhea. PHYSICAL EXAMINATION: Blood pressure 147/67 with a pulse of 65, temperature 97.4. He is 95% on room air. The patient is an elderly male up in the bed in no distress. Respiratory system: Unlabored breathing, decreased breath sounds in the base. No wheeze. Heart S1, S2. Regular rate and rhythm. ABDOMEN: Soft, no tenderness. LABS: Hemoglobin is 8.4, white count 9.0. BUN of 29, creatinine is 2.37. Pleural fluid culture currently pending. DIAGNOSTIC IMPRESSION AND PLAN: Patient with left-sided pneumonia with concern for possible parapneumonic effusion status post thoracocentesis. Culture pending. Patient responded to Zosyn to continue while waiting for the culture to finalize and monitor clinical course closely. MMODL / IJN: [id number] /
--- NOTE | 2021-02-11 18:59 | P.PN ---
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 He follows in the office with Dr. Mora out of town. We have been asked to see in consultation for chest pain. He has been admitted here since 02/04 being treated for pneumonia and sepsis. He is s/p left thoracentesis with 600 ml fluid removed. This morning he had an episode of pain in the right anterior region described as heavy and sharp. The pain is exacerbated by coughing and deep breathing. He was given one dose of nitroglycerin. He is seen and examined sitting up in bed in no acute distress. He continues to be short of breath and is mildly tachyneic. Echocardiogram obtained on this admission reveals preserved LV systolic function with ejection fraction 55-60% with daughter at mitral regurgitation. Objective - Vital Signs Vital signs: Vital Signs Temp 98.2 F 02/11/21 07:55 Pulse 66 02/11/21 07:55 Resp 18 02/11/21 07:55 BP 133/63 02/11/21 07:55 Pulse Ox 98 02/11/21 07:55 Intake & Output 02/10/21 02/11/21 02/11/21 18:59 06:59 18:59 Intake Total 900 418 Output Total 100 Balance 900 -100 418 Weight 65.5 kg 82 kg Intake: IV 220 Invasive Line 2 20 Piperacillin-Tazobactam 3 100 .375 gm In Sodium Chloride 0.9% 100 ml @ 25 mls/hr IVPB Q12H [facility] Rx# :[id number] Sodium Ferric Gluconat- 100 Sucrose 125 mg In Sodium Chloride 0.9% 100 ml @ 100 mls/hr IVPB DAILY [facility] Rx#:[id number] Oral 680 418 Output: Urine 100 Other: Voiding Method Diaper Diaper Diaper # Voids 2 # Bowel Movements 1 1 - Exam GENERAL: The patient is alert and oriented x3, not in any acute distress. Well developed, well nourished. HEENT: Pupils are round and equally reacting to light. EOMI. No scleral icterus. No conjunctival pallor. Normocephalic, atraumatic. No pharyngeal erythema. No thyromegaly. CARDIOVASCULAR: S1 and S2 present. No murmurs, rubs, or gallops. PULMONARY: Chest is clear to auscultation, no wheezing or crackles. ABDOMEN: Soft, nontender, nondistended, normoactive bowel sounds. No palpable organomegaly. MUSCULOSKELETAL: No joint swelling or deformity. EXTREMITIES: No cyanosis, clubbing, or pedal edema. NEUROLOGICAL: Gross neurological examination did not reveal any focal deficits. SKIN: No rashes. No petechiae - Labs CBC & Chem 7: 02/10/21 06:43 02/10/21 06:43 Labs: Abnormal Lab Results - Last 24 Hours (Table) 02/10/21 Range/Units 10:38 Total Protein (PEP) 6.1 L (6.2-8.2) g/dL ALONDRA Screen POSITIVE A (NEGATIVE) Double Strand DNA Ab POSITIVE A (NEGATIVE) Microbiology - Last 24 Hours (Table) 02/09/21 10:38 Gram Stain - Final Sputum Sputum Culture - Final 02/09/21 15:30 Gram Stain - Preliminary Pleural Fluid Body Fluid Culture - Preliminary 02/04/21 10:45 Blood Culture - Final Blood No Growth after 144 hours 02/04/21 10:46 Blood Culture - Final Blood No Growth after 144 hours Assessment and Plan Assessment: Right upper lobe pneumonia, with left-sided pleural effusion, status post thora cocentesis on 02/09. Mostly gram-negative bacteremia Sepsis secondary to stop with leukocytosis and fever. Acute Kidney injury, improving Anemia with stable hemoglobin. Low appetite secondary to above Acute hematuria, mostly secondary to Cruz catheter and kidney stone. No further workup [per urologist] Right hip pain. Hip x-ray: No acute process Hypertension Hyperlipidemia Atrial fibrillation History of seizure disorder History of prostate and bladder cancer Chronic kidney disease, stage IV This is a pleasant 85 years old male who presents with right pneumonia. Continue with Zosyn, Pulmonary consult. Follow up outpatient for lung nodule with Dr. Gates follow up with manufacturing engineering manager , GI and ID team who are on the case, also pt was seen by urologist Labs and medication were reviewed.. Continue same treatment. Continue with symptomatic treatment. Resume home medication. Monitor lytes and vitals. DVT and GI prophylaxis. Further recommendations depends on the clinical course of the patient DVT prophylaxis: Patient was on Eliquis at home. Now is on hold GI Prophylaxis: Ppi PT/OT: Home with Family
[2021-02-11] MEDS: DOXAZOSIN 2 MG TAB PO SCH (22:35)
[2021-02-12] MEDS: carvediloL 6.25 MG TAB PO SCH (06:33)
[2021-02-12] MEDS: AMIODARONE 100 MG TAB PO SCH (06:33)
[2021-02-12] MEDS: ISOSORBIDE MONONITRATE ER 30 MG TAB.ER.24H PO SCH (06:33)
[2021-02-12] MEDS: ASPIRIN 81 MG PO SCH (06:34)
[2021-02-12] MEDS: amLODIPine 5 MG TAB PO SCH (06:34)
[2021-02-12] MEDS: PANTOPRAZOLE 40 MG TABLET PO SCH (09:22)
[2021-02-12] MEDS: ATORVASTATIN 40 MG TAB PO SCH (09:22)
[2021-02-12] MEDS: hydrALAZINE HCL 50 MG TAB PO SCH ×2 (09:22→16:42)
[2021-02-12] MEDS: FUROSEMIDE 40 MG TAB PO SCH (09:22)
[2021-02-12 09:37] LABS: Calcium 8.3 mg/dL (8.4-10.2); Potassium 3.9 mmol/L (3.5-5.1)
--- NOTE | 2021-02-12 10:17 | P.PN ---
Subjective Progress Note Date: 02/12/21 Principal diagnosis: Acute hypoxic respiratory failure Right-sided pneumonia likely community-acquired pneumonia involving right upper lobe and right lower lobe Acute exacerbation of heart failure likely chronic systolic heart failure Small bilateral pleural effusion more so on the left side compared to right side Ischemic cardiomyopathy Chronic atrial fibrillation on anticoagulation 02/12/2021, patient seen eval examined during the rounds labs reviewed medications reviewed care plan discussed, respiratory status remains stable, ongoing chest pain appears to have improved, I'll shortness of breath present on activity and exertion, patient wishes to go home chest x-ray yesterday reviewed and compared with prior x-ray no pneumothorax seen stable left-sided minimal ef fusion, cultures have been negative so far cytology is pending agree with discharge planning and follow-up on outpatient basis 02/10/2021, patient seen eval examined during morning rounds shortness of breath has been stable, was on 2 L oxygen is status post thoracentesis 600 mL of fluid has been removed, Gram stain has been negative many WBCs are seen, cultures are pending, patient get short of breath on activity and exertion, posterior evaluation patient have episode of chest pain left-sided, instructed RN to go ahead and give the nitro, we'll also check stat portable chest x-ray to look for delayed pneumothorax, foot cardiology on consult, troponin 2, if pain continues morphine can be added, will follow clinical course closely further recommendations pending, critical care time 35 minutes 02/09/2021, patient seen eval examined during the rounds labs reviewed medications care plan discussed, patient remains short of breath on activity and exertion, has been on 2 L oxygen, chest x-ray showed worsening of pleural effusion the left side ultrasound confirmed moderate pleural effusion I have discussed with the patient about thoracentesis process and cons explained along with alternative procedures and side effects also explained patient wants to proceed with thoracentesis 02/08/2021, patient seen eval examined during the rounds labs reviewed medications reviewed care plan discussed, respiratory status remains stable denies any chest pain breathing comfortably, however patient is slightly more tachypneic, patient has been requesting for discharge, patient noted to have low-grade fever, saturation is 93% on 3 L, chest x-ray performed today shows further atelectasis of the left lung with increased left lower lobe density will do ultrasound of the chest to evaluate for extended a pleural effusion 02/07/2021, patient was started on bronchodilator due to wheezing, patient is being evaluated by nephrology for acute kidney injury likely related to ATN, 02/06/2021, patient seen gerard examined Estrace status improved now denies any cough or sputum production, denies any chest pain patient is on room air now, patient is getting therapy for pneumonia I have explained the patient about computed tomography scan finding, plan to get an another short-term computed tomography scan as outpatient if patient discharged home recommend on oral antibiotics with follow-up in the office 02/05/2021, patient seen gerard examined during the rounds labs reviewed medications reviewed care plan discussed, respiratory status improved a bit from yesterday still short of breath, not producing any sputum, denies any chest pain computed tomography scan of the chest has been reviewed, patient noted to have extensive bilateral emphysematous changes along with a small to moderate left-sided pleural effusion, groundglass attenuation noted infiltrative findings in the lingula lobe, also on the right side there is nodular infiltrate in the right middle lobe, likely suggestive of pneumonia neoplasm less likely however but cannot be excluded, patient will need long-term follow-up with a short-term computed tomography scan as outpatient after treatment of pneumonia Patient is a pleasant 85-year-old male with history of cardiomyopathy and ischemic status post history of stent placement in the past 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, patient came into the hospital with several days history of increase wet cough and congestion associated with white to yellow sputum production 2 days ago developed increasing shortness of breath, also chills, presented to emergency department found to have a fever, patient is been having off-and-on chest pain since yesterday without any significant relief with nitro, patient is status post vaccination with: Vaccine, review of the data rev ealed that patient is on diuretic anticoagulation with oral anticoagulant also antiarrhythmic agents with amiodarone and Lasix, patient recalls cardiac cath and angiogram in the past with 2 stent placement one was done at [facility], he is unaware of his ejection fraction, his prior history significant for the in addition to above seizure disorder, dyslipidemia, chronic atrial fibrillation, prostate and bladder cancer, patient does have a remote history of smoking in the past quit several years ago Patient on arrival slightly hypertensive with fever of 100.4, sats were 93% on supplemental oxygen with 2 L, white cell count is elevated to 26,000, BUN/creatinine 24 and 2.39, patient has been started on IV Rocephin with Zithromax, chest x-ray significant for developing right lower lobe and right upper lobe infiltrate, small bilateral pleural effusion more so on the left side compared right side, Objective - Vital Signs Vital signs: Vital Signs Temp 98.2 F 02/12/21 07:37 Pulse 63 02/12/21 07:37 Resp 18 02/12/21 07:39 BP 162/70 02/12/21 07:37 Pulse Ox 96 02/12/21 07:37 Intake & Output 02/11/21 02/12/21 02/12/21 18:59 06:59 18:59 Intake Total 1372 240 Balance 1372 240 Weight 65.9 kg Intake: Oral 1372 240 Other: Voiding Method Diaper Diaper Diaper # Voids 3 1 3 # Bowel Movements 1 - Exam - Constitutional General appearance: average body habitus, cooperative, disheveled - EENT Eyes: EOMI, PERRLA Ears: bilateral: normal - Neck Neck: normal ROM Carotids: bilateral: upstroke normal Thyroid: bilateral: normal size - Respiratory Respiratory: bilateral: rales (With bronchial breath sounds bilaterally), dullness and decreased air entry more than one third on the left side - Cardiovascular Rhythm: regular Heart sounds: normal: S1, S2 - Gastrointestinal General gastrointestinal: normal bowel sounds - Integumentary Integumentary: normal - Neurologic Neurologic: CNII-XII intact - Musculoskeletal Musculoskeletal: gait normal, generalized weakness, strength equal bilaterally - Psychiatric Psychiatric: A&O x's 3, appropriate affect, intact judgment & insight - Labs CBC & Chem 7: 02/10/21 06:43 02/12/21 08:55 Labs: Abnormal Lab Results - Last 24 Hours (Table) 02/12/21 Range/Units 08:55 Carbon Dioxide 33 H (22-30) mmol/L BUN 29 H (9-20) mg/dL Creatinine 2.63 H (0.66-1.25) mg/dL Glucose 124 H (74-99) mg/dL Calcium 8.3 L (8.4-10.2) mg/dL Microbiology - Last 24 Hours (Table) 02/09/21 15:30 Gram Stain - Preliminary Pleural Fluid Body Fluid Culture - Preliminary 02/09/21 10:38 Gram Stain - Final Sputum Sputum Culture - Final Assessment and Plan Assessment: Left-sided chest pain intermittent cardiovascular services following Acute hypoxic respiratory failure Left-sided worsening pleural effusion Right-sided pneumonia likely community-acquired pneumonia involving middle lobe with nodular appearance neoplasm however cannot be excluded Left-sided lingular lobe pneumonia Acute exacerbation of heart failure likely chronic systolic heart failure Small bilateral pleural effusion more so on the left side compared to right side Ischemic cardiomyopathy Chronic atrial fibrillation on anticoagulation Plan: resume and continue oral anticoagulants Agree with discharge planning with follow-up on outpatient basis Status post left thoracentesis on 02/09 over 600 mL of slightly turbid yellow fluid removed Gram stain negative cultures however is pending likely exudative Continue supplemental oxygen Continue IV antibiotics, can be changed to by mouth Augmentin at time of discharge Reviewed computed tomography scan with findings as noted above Continue current plan of care with treatment with antibiotics patient will need short-term computed tomography scan as outpatient after 6-8 weeks of therapy Time with Patient: Greater than 30
--- NOTE | 2021-02-12 12:40 | PN ---
PROGRESS NOTE The patient is seen for followup for acute kidney injury. Renal function fairly stable with serum creatinine fluctuating between 3.3-3.4 mg/dL. The patient is currently being diuresed. He is maintained on low-dose oral loop diuretics. He denies any significant complaints today. PHYSICAL EXAMINATION: Blood pressure was 162/70, heart rate 63 per minute. He is afebrile. Examination of the heart S1, S2. Examination of the lungs, bilateral breath sounds are heard. ABDOMEN: Obese, soft, nontender. Examination of lower extremities chronic skin changes, chronic edema bilaterally. COLOR REPAIRER exam grossly intact. LAB: Show sodium 140, potassium 3.9, chloride 103, CO2 is 33, BUN 29, creatinine 2.63, hemoglobin 8.5 g/dL. ASSESSMENT: 1. Acute kidney injury acute tubular necrosis, stable. Serum creatinine slightly higher today. I will continue with current dose of oral Lasix. Blood pressure is not low. No nephrotoxic agents on board. 2. Chronic kidney disease, stage 4. Baseline creatinine about 2.1 secondary to nephrosclerosis. 3. Pneumonia maintained on antibiotics. 4. Coronary artery disease status post coronary artery stenting. 5. Volume overload improved from admission but remains volume overloaded. 6. Hypokalemia secondary to diuresis status post replacement. 7. 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 However, serum creatinine has been stable and has been around 2 mg/dL since 2019. No plans for biopsy at this time. However, patient may benefit from a kidney biopsy down the road as outpatient for further workup of his kidney disease. He follows with a home office claim specialist out of town. MMODL / IJN: [id number] /
[2021-02-12 13:08] VITALS: RESP 16
[2021-02-12] MEDS: PIPERACILLIN-TAZOBACTAM 3.375 GM in SODIUM CHLORIDE 0.9% 100 ML IVPB SCH (13:19)
[2021-02-12 16:44] VITALS: BP 161/71; PULSE 70; TEMP 98.2
--- NOTE | 2021-02-12 18:57 | PN ---
PROGRESS NOTE DATE OF SERVICE: 02/12/2021 REASON FOR FOLLOWUP: Pneumonia. INTERVAL HISTORY: The patient is currently afebrile. The patient is breathing comfortably on room air. Patient denies any chest pain. Did have minimal cough. No sputum production. No abdominal pain. No diarrhea. PHYSICAL EXAMINATION: Blood pressure 151/71 with a pulse of 72, temperature 98.2. He is 96% on room air. General description is an elderly male lying in in no distress. Respiratory system: Unlabored breathing, decreased breath sounds in the bases. No wheeze. Heart S1, S2. Regular rate and rhythm. Abdomen soft, no tenderness. LABS: White count of 9.0 creatinine is 2.63. Pleural fluid culture so far negative. Sputum was negative. DIAGNOSTIC IMPRESSION AND PLAN: Patient with left-sided pneumonia with concern for parapneumonic effusion. Cultures have been negative for resistant pathogen. Will be able to finish therapy with short course of Augmentin and close outpatient followup. Continue supportive care. MMODL / IJN: [id number] /
[2021-02-14 12:55] LABS: Anti-Glomerular Basement Memb 3 UNITS (0-20)
[2021-02-14 13:28] LABS: Albumin 3.32 g/dL (3.80-4.90); Gamma Globulin 0.82 g/dL (0.70-1.50)
[2021-02-14 14:43] LABS: C-ANCA <1:20 Titer (<1:20)
== END 2021-02-12 18:20 | disposition home or self-care (01) | DRG 871 ==
LOC: EC 10:16 → 3SCARD 12:19
PROVIDERS: ADMIT Internal Medicine; ATTEND Internal Medicine
PROC: 05HC33Z Insertion of Infusion Device into Left Basilic Vein, Percutaneous Approach (ICD-10-PCS; 2021-02-08 17:50)
PROC: 0W9B3ZZ Drainage of Left Pleural Cavity, Percutaneous Approach (ICD-10-PCS; principal; 2021-02-09)
DX: A41.50 Gram-negative sepsis, unspecified (principal); J18.9 Pneumonia, unspecified organism; J96.01 Acute respiratory failure with hypoxia; I50.23 Acute on chronic systolic (congestive) heart failure; N17.0 Acute kidney failure with tubular necrosis; I13.0 Hypertensive heart and chronic kidney disease with heart failure and stage 1 through stage 4 chronic kidney disease, or unspecified chronic kidney disease; I45.2 Bifascicular block; N18.4 Chronic kidney disease, stage 4 (severe); T83.83XA Hemorrhage due to genitourinary prosthetic devices, implants and grafts, initial encounter; J91.8 Pleural effusion in other conditions classified elsewhere; D63.1 Anemia in chronic kidney disease; Z20.822 Contact with and (suspected) exposure to COVID-19; G40.909 Epilepsy, unspecified, not intractable, without status epilepticus; I48.0 Paroxysmal atrial fibrillation; I25.5 Ischemic cardiomyopathy; E78.5 Hyperlipidemia, unspecified; R32 Unspecified urinary incontinence; N20.0 Calculus of kidney; K21.9 Gastro-esophageal reflux disease without esophagitis; I34.0 Nonrheumatic mitral (valve) insufficiency; I25.10 Atherosclerotic heart disease of native coronary artery without angina pectoris; E87.6 Hypokalemia; D49.1 Neoplasm of unspecified behavior of respiratory system; R76.8 Other specified abnormal immunological findings in serum; R80.9 Proteinuria, unspecified; K57.90 Diverticulosis of intestine, part unspecified, without perforation or abscess without bleeding; R31.29 Other microscopic hematuria; R63.0 Anorexia; Y84.6 Urinary catheterization as the cause of abnormal reaction of the patient, or of later complication, without mention of misadventure at the time of the procedure; T50.1X5A Adverse effect of loop [high-ceiling] diuretics, initial encounter; I25.2 Old myocardial infarction; Z71.3 Dietary counseling and surveillance; Z79.899 Other long term (current) drug therapy; Z79.01 Long term (current) use of anticoagulants; Z79.82 Long term (current) use of aspirin; Z85.46 Personal history of malignant neoplasm of prostate; Z85.51 Personal history of malignant neoplasm of bladder; Z98.890 Other specified postprocedural states; Z95.5 Presence of coronary angioplasty implant and graft; Z87.891 Personal history of nicotine dependence; Z92.3 Personal history of irradiation; Z87.19 Personal history of other diseases of the digestive system
CPT/HCPCS: 36410; 36415; 71045; 71046; 71250; 73501; 76604; 76770; 76937; 80048; 80053; 80074; 81001; 82570; 82607; 82728; 82746; 83516; 83540; 83550; 83605; 83615; 83735; 83880; 84145; 84156; 84157; 84165; 84484; 85025; 85610; 85730; 86038; 86039; 86140; 86160; 86162; 86225; 86255; 86334; 86335; 87040; 87070; 87102; 87116; 87205; 87206; 87252; 87449; 87635; 89050; 93005; 93306; 94640; 94760; 96361; 96365; 96375; 99285

== ENCOUNTER 2021-10-19 16:17 | Observation (INO) | payer MEDICARE ==
[2021-10-19] MEDS ORDERED: SODIUM CHLORIDE 0.9% 500 ML 500 ML IV STA (16:19)
[2021-10-19] MEDS ORDERED: MORPHINE SULFATE 2 MG/ML SYRINGE IVP STA ×2 (16:19→17:28)
[2021-10-19] MEDS ORDERED: LABETALOL 5 MG/ML VIAL MDV IVP STA ×2 (16:31→19:17)
--- NOTE | 2021-10-19 16:41 | ED ---
General Adult HPI - General Chief complaint: Chest Pain Stated complaint: Chest Pain Time Seen by Provider: 10/19/21 16:20 Source: patient, EMS, RN notes reviewed, old records reviewed Mode of arrival: EMS Limitations: no limitations - History of Present Illness Initial comments: This is an 86-year-old male who presents emergency Department stating he had chest pain starting at 4 AM. Patient states the pain radiates to his back. Patient states he took nitroglycerin and took with the ambulance as well and it did not help. Patient states he has a cardiac history and had stents in the past. Patient states this morning more nitroglycerin because it gives him a headache. Patient states she has mild shortness of breath. Patient denies any diaphoretic episodes. Patient denies any nausea vomiting. Patient denies any recent fever chills or cough. Patient denies abdominal pain patient denies any back pain. Patient denies headache patient denies numbness weakness. - Related Data Home Medications Medication Instructions Recorded Confirmed Aspirin EC [Ecotrin Low Dose] 81 mg PO DAILY@59908/20/19 10/19/21 Atorvastatin [Lipitor] 40 mg PO HS@199908/20/19 10/19/21 Ferrous Sulfate [Iron (65 MG 325 mg PO HS@199908/20/19 10/19/21 Elemental)] Furosemide [Lasix] 40 mg PO HS@199908/20/19 10/19/21 HYDROcodone/APAP 10-325MG [Mendon 1 tab PO BID PRN 08/20/19 10/19/21 10-325] Nitroglycerin Sl Tabs [Nitrostat] 0.4 mg SL Q5M PRN 08/20/19 10/19/21 amLODIPine [Norvasc] 5 mg PO DAILY@59908/20/19 10/19/21 hydrALAZINE HCL [Apresoline] 100 mg PO BID@08/20/19 10/19/21 Amiodarone [Cordarone] 100 mg PO DAILY@59902/04/21 10/19/21 Carvedilol [Coreg] 6.25 mg PO DAILY@59902/04/21 10/19/21 Isosorbide Mononitrate ER [Imdur] 30 mg PO DAILY@59902/04/21 10/19/21 Acetaminophen Tab [Tylenol Tab] 500 mg PO Q6H PRN 10/19/21 10/19/21 Albuterol Inhaler [Ventolin Hfa 2 puff INHALATION RT-QID PRN 10/19/21 10/19/21 Inhaler] Albuterol Nebulized [Ventolin 2.5 mg INHALATION RT-Q6H PRN 10/19/21 10/19/21 Nebulized] Allergies Allergy/AdvReac Type Severity Reaction Status Date / Time No Known Allergies Allergy Verified 10/19/21 17:04 Review of Systems ROS Statement: Those systems with pertinent positive or pertinent negative responses have been documented in the HPI. ROS Other: All systems not noted in ROS Statement are negative. Past Medical History Past Medical History: Atrial Fibrillation, Cancer, Hyperlipidemia, Hypertension, Seizure Disorder Additional Past Medical History / Comment(s): bladder CA Prostate CA History of Any Multi-Drug Resistant Organisms: None Reported Past Surgical History: Bladder Surgery, Prostate Surgery Past Psychological History: No Psychological Hx Reported Smoking Status: Former smoker Past Alcohol Use History: None Reported Past Drug Use History: None Reported General Exam - General Exam Comments Initial Comments: GENERAL: Patient is well-developed and well-nourished. Patient is nontoxic and well- hydrated and is in mild distress. ENT: Neck is soft and supple. No significant lymphadenopathy is noted. Oropharynx is clear. Moist mucous membranes. Neck has full range of motion without eliciting any pain. EYES: The sclera were anicteric and conjunctiva were pink and moist. Extraocular movements were intact and pupils were equal round and reactive to light. Eyelids were unremarkable. PULMONARY: Unlabored respirations. Good breath sounds bilaterally. No audible rales rhonchi or wheezing was noted. CARDIOVASCULAR: There is a regular rate and rhythm without any murmurs gallops or rubs. ABDOMEN: Soft and nontender with normal bowel sounds. SKIN: Skin is clear with no lesions or rashes and otherwise unremarkable. NEUROLOGIC: Patient is alert and oriented x3. Cranial nerves II through XII are grossly intact. Motor and sensory are also intact. Normal speech, volume and content. Symmetrical smile. MUSCULOSKELETAL: Normal extremities with adequate strength and full range of motion. No lower extremity swelling or edema. No calf tenderness. LYMPHATICS: No significant lymphadenopathy is noted PSYCHIATRIC: Normal psychiatric evaluation. Limitations: no limitations Course Vital Signs 10/19/21 10/19/21 10/19/21 16:20 16:25 17:06 Pulse Rate 80 76 Respiratory 18 Rate Blood Pressure 227/104 226/88 177/78 O2 Sat by Pulse 96 Oximetry Medical Decision Making - Medical Decision Making EKG shows sinus rhythm with occasional PVCs at 75 bpm ND interval 184 QRS is 134 QT interval 460 QTC is 513 per patient's EKG shows no ST segment elevation or depression. Patient was given 2 of morphine for the pain because he did not want any more nitroglycerin. Patient already received aspirin in route. Patient received 20 of labetalol because his blood pressure was elevated bilateral blood pressures were taken the were relatively the same. Chest x-ray shows no acute abnormality. Patient's CTA showed possible renal mass but no dissection. I gave the patient more labetalol. I spoke with [facility] hospitalist and admitted the patient remaining o rders consult cardiology. - Lab Data Result diagrams: 10/19/21 16:28 10/19/21 16:28 Lab Results 10/19/21 10/19/21 10/19/21 Range/Units 16:28 16:28 16:28 WBC 14.5 H (3.8-10.6) k/uL RBC 4.40 (4.30-5.90) m/uL Hgb 11.3 L (13.0-17.5) gm/dL Hct 36.5 L (39.0-53.0) % MCV 83.1 (80.0-100.0) fL MCH 25.6 (25.0-35.0) pg MCHC 30.8 L (31.0-37.0) g/dL RDW 15.8 H (11.5-15.5) % Plt Count 96 L (150-450) k/uL MPV 10.3 Neutrophils % 82 % Lymphocytes % 4 % Monocytes % 10 % Eosinophils % 0 % Basophils % 0 % Neutrophils # 11.9 H (1.3-7.7) k/uL Lymphocytes # 0.6 L (1.0-4.8) k/uL Monocytes # 1.5 H (0-1.0) k/uL Eosinophils # 0.1 (0-0.7) k/uL Basophils # 0.0 (0-0.2) k/uL Manual Slide Review Performed Hypochromasia Slight PT 9.9 (9.0-12.0) sec INR 0.9 (<1.2) APTT 20.3 L (22.0-30.0) sec D-Dimer 1.18 H (<0.60) mg/L FEU Sodium 136 L (137-145) mmol/L Potassium 5.6 H (3.5-5.1) mmol/L Chloride 103 (98-107) mmol/L Carbon Dioxide 24 (22-30) mmol/L Anion Gap 9 mmol/L BUN 34 H (9-20) mg/dL Creatinine 2.42 H (0.66-1.25) mg/dL Est GFR (CKD-EPI)AfAm 27 (>60 ml/min/1.73 sqM) Est GFR (CKD-EPI)NonAf 23 (>60 ml/min/1.73 sqM) Glucose 101 H (74-99) mg/dL Calcium 9.2 (8.4-10.2) mg/dL Magnesium 2.5 H (1.6-2.3) mg/dL Total Bilirubin 1.0 (0.2-1.3) mg/dL AST 42 (17-59) U/L ALT 14 (4-49) U/L Alkaline Phosphatase 61 (38-126) U/L Troponin I (0.000-0.034) ng/mL Total Protein 8.0 (6.3-8.2) g/dL Albumin 4.6 (3.5-5.0) g/dL Coronavirus (PCR) (Not Detectd) 10/19/21 10/19/21 Range/Units 16:28 17:13 WBC (3.8-10.6) k/uL RBC (4.30-5.90) m/uL Hgb (13.0-17.5) gm/dL Hct (39.0-53.0) % MCV (80.0-100.0) fL MCH (25.0-35.0) pg MCHC (31.0-37.0) g/dL RDW (11.5-15.5) % Plt Count (150-450) k/uL MPV Neutrophils % % Lymphocytes % % Monocytes % % Eosinophils % % Basophils % % Neutrophils # (1.3-7.7) k/uL Lymphocytes # (1.0-4.8) k/uL Monocytes # (0-1.0) k/uL Eosinophils # (0-0.7) k/uL Basophils # (0-0.2) k/uL Manual Slide Review Hypochromasia PT (9.0-12.0) sec INR (<1.2) APTT (22.0-30.0) sec D-Dimer (<0.60) mg/L FEU Sodium (137-145) mmol/L Potassium (3.5-5.1) mmol/L Chloride (98-107) mmol/L Carbon Dioxide (22-30) mmol/L Anion Gap mmol/L BUN (9-20) mg/dL Creatinine (0.66-1.25) mg/dL Est GFR (CKD-EPI)AfAm (>60 ml/min/1.73 sqM) Est GFR (CKD-EPI)NonAf (>60 ml/min/1.73 sqM) Glucose (74-99) mg/dL Calcium (8.4-10.2) mg/dL Magnesium (1.6-2.3) mg/dL Total Bilirubin (0.2-1.3) mg/dL AST (17-59) U/L ALT (4-49) U/L Alkaline Phosphatase (38-126) U/L Troponin I <0.012 (0.000-0.034) ng/mL Total Protein (6.3-8.2) g/dL Albumin (3.5-5.0) g/dL Coronavirus (PCR) Not Detected (Not Detectd) Critical Care Time Critical Care Time: Yes Total Critical Care Time: 35 Disposition Clinical Impression: Chest pain, Hypertensive urgency, Renal mass Disposition: ADMITTED IP TO THIS HOSP Is patient prescribed a controlled substance at d/c from ED?: No Referrals: Vadim Torrez MD [Primary Care Provider] - 1-2 days Time of Disposition: 19:16
[2021-10-19 16:49] LABS: Basophils % (A) 0 %; Eosinophils # (A) 0.1 k/uL (0-0.7); Eosinophils % (A) 0 %; HCT 36.5 % (39.0-53.0); HGB 11.3 gm/dL (13.0-17.5); Hypochromasia Slight; Lymphocytes # (A) 0.6 k/uL (1.0-4.8); Lymphocytes % (A) 4 %; MCH 25.6 pg (25.0-35.0); MCHC 30.8 g/dL (31.0-37.0); MCV 83.1 fL (80.0-100.0); Mean Platelet Volume 10.3; Monocytes # (A) 1.5 k/uL (0-1.0); Monocytes % (A) 10 %; Neutrophils # (A) 11.9 k/uL (1.3-7.7); Neutrophils % (A) 82 %; RDW 15.8 % (11.5-15.5); WBC 14.5 k/uL (3.8-10.6)
[2021-10-19 16:55] LABS: Albumin 4.6 g/dL (3.5-5.0); Calcium 9.2 mg/dL (8.4-10.2); Magnesium 2.5 mg/dL (1.6-2.3)
[2021-10-19 17:01] LABS: Potassium 5.6 mmol/L (3.5-5.1)
[2021-10-19 17:23] LABS: Platelet Count 96 k/uL (150-450)
[2021-10-19 17:27] LABS: INR 0.9 (<1.2); Prothrombin Time 9.9 sec (9.0-12.0)
[2021-10-19 17:31] LABS: Partial Thromboplastin Time 20.3 sec (22.0-30.0)
--- NOTE | 2021-10-19 17:47 | XR ---
EXAMINATION TYPE: XR chest 2V DATE OF EXAM: 10/19/2021 5:11 PM COMPARISON:Multiple radiographs, with the most recent on 2020 TECHNIQUE: Frontal and lateral views of the chest. CLINICAL INDICATION:Male, 86 years old with history of Chest Pain; FINDINGS: Lungs/Pleura: Is interval increase in size of left pleural effusion with associated subsegmental atel ectasis present. No evidence of pneumothorax or consolidation. Pulmonary vascularity: Pulmonary vascular congestion. Heart/mediastinum: Cardiomediastinal silhouette is enlarged and stable. Musculoskeletal:No acute osseous pathology. IMPRESSION: 1. Pulmonary vascular congestion with cardiomegaly and small left pleural effusion with associated begum bsegmental atelectasis. Correlate for congestive heart failure.
--- NOTE | 2021-10-19 18:55 | CT ---
EXAMINATION TYPE: CT angio thor/abd pel aorta CT DLP: 1263.7 mGycm, Automated exposure control for dose reduction was used. DATE OF EXAM: 10/19/2021 6:21 PM COMPARISON: None. CLINICAL INDICATION:Male, 86 years old with history of Chest pain radiating to the back; TECHNIQUE: Dissection protocol: Multiple axial CT images of the chest, abdomen, and pelvis were obtai pranay prior and to the administration of IV contrast. 3-D reformats and maximum intensity projection fo rmat were performed on a separate workstation. Then the abdomen was scanned after administration of 8 0 cc of Isovue 370 IV contrast. FINDINGS: ARTERIAL VASCULATURE: No evidence of aortic aneurysm or intramural flap to suggest dissection. There is scattered atherosclerotic disease throughout the visualized aorta. Origins of the great vessels ar e patent. Celiac axis, superior mesenteric artery, bilateral renal arteries and inferior mesenteric a rteries are all patent. There is an accessory left hepatic artery. PULMONARY ARTERIAL VASCULATURE: Normal caliber. No evidence of pulmonary embolus. VENOUS SYSTEM: Unremarkable Lungs/pleura: There is a small left pleural effusion present. No evidence of pneumothorax. Mild kristin eptal and centrilobular emphysema changes are present. There is motion artifact throughout the lung p arenchyma. There is a right middle lobe pulmonary nodule measuring up to 9 mm. Ossified pleural plaqu es are seen throughout the lungs. Heart: There are severe coronary artery atherosclerosis most pronounced in the left anterior descendi ng coronary artery. Mediastinum: No gross evidence of adenopathy. Lower Neck: There is a 9 mm left thyroid nodule. Abdomen: Liver: Too small characterize hypodensities likely representing cysts. Gallbladder and Bile ducts: Gallbladder is surgically absent. No evidence of biliary ductal dilatatio n. Pancreas: Fatty atrophy changes are seen throughout the pancreas parenchyma. No ductal dilatation. Spleen: Unremarkable. Adrenal glands: Left adrenal gland measuring 9 mm and 7 Hounsfield units consistent with benign adren al adenoma. The right adrenal gland unremarkable. Kidneys and Ureters: No hydronephrosis. Calcifications thought to represent arterial atherosclerosis. No obstructing calculi identified. Bilateral renal cysts measuring up to 8 mm on the right than the left measuring up to 11 mm. Indeterminate left upper pole lesion 12 mm. Stomach and Bowel: Scattered colonic diverticula are seen most pronounced in the sigmoid colon. No ev idence of bowel obstruction. Peritoneum: No evidence of pneumoperitoneum, free fluid, or adenopathy. Nonenlarged lymph nodes are seen scattered around the aorta in the abdominal retroperitoneum. Bladder: Nondistended. Reproductive: Surgical clips in the expected location of the prostate. Abdominal wall/soft tissues: Left fat filled inguinal hernia. Musculoskeletal: The osseous structures appear intact. Multilevel disc degeneration changes throughou t the spine. IMPRESSION: 1. No evidence for thoracic aortic dissection. 2. Right middle lobe pulmonary nodule. Comparison with outside imaging would be of benefit for abigail lehman. Short-term follow-up in [address] chest is recommended to ensure stability. 3. Indeterminate a left upper renal pole 12 mm lesion. Follow-up CT/MRI with IV contrast renal mass protocol is recommended for further characterization. 4. Mild emphysema. 5. Small left pleural effusion. 6. Colonic diverticulosis. 7. Severe coronary artery atherosclerosis. 8. Pleural calcified plaquing which can be seen in the setting of asbestos exposure.
[2021-10-19] MEDS ORDERED: SODIUM CHLORIDE 0.9% 1,000 ML IV ONE (19:21)
[2021-10-19] MEDS ORDERED: ALBUTEROL NEBULIZED 2.5 MG/3 ML INHALATION PRN (19:22)
[2021-10-19] MEDS ORDERED: NITROGLYCERIN SL TABS 0.4 MG TAB SUBLINGUAL PRN (19:24)
[2021-10-19] MEDS: HYDROcodone/APAP 10-325MG 1 EACH TAB PO PRN (19:35)
[2021-10-19] MEDS: hydrALAZINE HCL 50 MG TAB PO SCH (19:43)
[2021-10-19] MEDS ORDERED: FUROSEMIDE 40 MG TAB PO SCH (20:00)
[2021-10-19] MEDS ORDERED: ATORVASTATIN 40 MG TAB PO SCH (20:00)
[2021-10-19] MEDS: NITROGLYCERIN OINT 1 INCH/GM PACKET TOPICAL SCH (23:06)
[2021-10-19] MEDS: ACETAMINOPHEN TAB 500 MG TAB PO PRN (23:13)
[2021-10-20] MEDS: NITROGLYCERIN OINT 1 INCH/GM PACKET TOPICAL SCH (05:52)
[2021-10-20] MEDS: hydrALAZINE HCL 50 MG TAB PO SCH (05:53)
[2021-10-20] MEDS: ACETAMINOPHEN TAB 500 MG TAB PO PRN (05:53)
[2021-10-20] MEDS ORDERED: AMIODARONE 100 MG TAB PO SCH (06:00)
[2021-10-20] MEDS ORDERED: amLODIPine 5 MG TAB PO SCH (06:00)
[2021-10-20] MEDS ORDERED: carvediloL 6.25 MG TAB PO SCH (06:00)
--- NOTE | 2021-10-20 08:49 | ECHOF ---
Referral Reason:chest pain MEASUREMENTS -------- HEIGHT: 165.1 cm WEIGHT: 68.0 kg BP: RVIDd: 3.4 cm (< 3.3) IVSd: 1.4 cm (0.6 - 1.1) LVIDd: 4.1 cm (3.9 - 5.3) LVPWd: 1.4 cm (0.6 - 1.1) IVSs: 2.1 cm LVIDs: 1.9 cm LVPWs: 2.1 cm LAESV Index (A-L): 42.27 ml/m Ao Diam: 3.4 cm (2.0 - 3.7) AV Cusp: 2.1 cm (1.5 - 2.6) MV EXCURSION: 19.315 mm (> 18.000) MV EF SLOPE: 93 mm/s (70 - 150) EPSS: 0.4 cm MV E Mike: 1.06 m/s MV DecT: 283 ms MV A Mike: 0.94 m/s MV E/A Ratio: 1.13 AV maxP.37 mmHg AV meanP.12 mmHg RAP: 5.00 mmHg RVSP: 24.38 mmHg FINDINGS -------- Sinus rhythm. This was a technically adequate study. The left ventricular size is normal. There is moderate concentric left ventricular hypertrophy. O verall left ventricular systolic function is normal with, an EF between 55 - 60 %. The right ventricle is mildly enlarged. LA is moderately dilated 34-39 ml/m2 The right atrial size is normal. Interatrial and interventricular septum intact. There is no evidence of aortic regurgitation. There is mild aortic stenosis present. The maximum velocity across the aortic valve is 2.36m/s. Peak/mean gradient across the Aortic Valve is 22.37mmH g / 11.12mmHg. Moderate mitral regurgitation is present. Mild tricuspid regurgitation present. There is no evidence of pulmonary hypertension. The right v entricular systolic pressure, as measured by Doppler, is 24.38mmHg. There is no pulmonic regurgitation present. The aortic root size is normal. The inferior vena cava is mildly dilated. There is no pericardial effusion. CONCLUSIONS -------- 1. The left ventricular size is normal. 2. There is moderate concentric left ventricular hypertrophy. 3. Overall left ventricular systolic function is normal with, an EF between 55 - 60 %. 4. The right ventricle is mildly enlarged. 5. LA is moderately dilated 34-39 ml/m2 6. There is mild aortic stenosis present. 7. The maximum velocity across the aortic valve is 2.36m/s. 8. Peak/mean gradient across the Aortic Valve is 22.37mmHg / 11.12mmHg. 9. Moderate mitral regurgitation is present. 10. Mild tricuspid regurgitation present. 11. The inferior vena cava is mildly dilated. ESCALATOR MECHANIC: Roxana Cheney RDCS
[2021-10-20] MEDS: HYDROcodone/APAP 10-325MG 1 EACH TAB PO PRN (08:54)
[2021-10-20] MEDS ORDERED: ASPIRIN 81 MG PO SCH (09:00)
[2021-10-20] MEDS ORDERED: ASPIRIN 325 MG TAB PO SCH (09:00)
--- NOTE | 2021-10-20 09:04 | P.CRDCN ---
History of Present Illness History of present illness: HISTORY OF PRESENTING ILLNESS This is a pleasant 85-year-old male past medical history significant for paroxysmal atrial fibrillation not on usp anticoagulation secondary to recent GI bleeding, coronary artery disease status post PCI patient states he had 2 stents placed years ago, myocardial infarction according to the patient exact details unavailable hypertension, dyslipidemia, bladder cancer and former nicotine dependence. He follows in the office with Dr. Mora in [place]. We have been asked to see in consultation for chest pain. Patient states yesterday at 4AM he had episode of left sided sharp chest pain, radiating to his back. It was non-exertional. He had associated shortness of breath. His chest pain is aggravated by taking a deep breath. He denies associated nausea, vomiting, diaphoresis, abdominal pain, lightheadedness, dizziness, syncope or n ear syncope. He does complain of chronic orthopnea that has been going on for over a year, he currently sleeps in a hospital bed at home. Sleeps with 1 pillow. DIAGNOSTICS EKG reveals sinus rhythm, heart rate 75, left axis deviation, right bundle branch block, PAC, T wave inversion in lead III, no acute STT wave changes to suggest ischemia. Prior EKG in 01/2021 with similar findings Telemetry tracings indicate persistent sinus mechanism. Thoracic aorta CT revealed no pulmonary embolism, no evidence respiratory distress-, right middle lobe pulmonary nodule, and to determine left upper renal 12 mm lesion. Mild emphysema, small left pleural effusion, severe coronary artery atherosclerosis Laboratory reviewed, WBC 14.5, hemoglobin 11.3, platelets 96, d-dimer 1.18, P1 34, serum current 2.4, troponin negative 3, COVID-19 negative Echocardiogram 01/2021 obtained on this admission reveals preserved LV systolic function with ejection fraction 55-60% with daughter at mitral regurgitation. Current cardiac medications include amiodarone 100 mg daily, aspirin 81 mg daily, atorvastatin 40 mg daily, Coreg 6.25 mg daily, Lasix 40 mg every other day, Imdur 30 mg daily, amlodipine 5 mg daily and hydralazine 100 mg 3 times a day. REVIEW OF SYSTEMS At the time of my exam: CONSTITUTIONAL: Denies fever or chills. CARDIOVASCULAR: Complains of shortness of breath and pleuritic chest pain. Den ies orthopnea, PND or palpitations. RESPIRATORY: Denies cough. GASTROINTESTINAL: Denies abdominal pain, diarrhea, constipation, nausea or vomiting. MUSCULOSKELETAL: Denies myalgias. NEUROLOGIC: Denies numbness, tingling, headacbe or weakness. ENDOCRINE: Denies fatigue, weight change, polydipsia or polyurina. GENITOURINARY: Denies burning, hematuria or urgency with micturation. HEMATOLOGIC: Denies history of anemia or bleeding. PHYSICAL EXAMINATION Blood pressure 156/69, heart 61, afebrile, oxygen saturations 95% on room air CONSTITUTIONAL: No apparent distress. HEENT: Head is normocephalic. Pupils are equal, round. Sclerae anicteric. Mucous membranes of the mouth are moist. No JVD. No carotid bruit. CHEST EXAMINATION: Bibasilar rales, scattered rhonchi, no wheezes. Diminished bilaterally. No chest wall tenderness is noted on palpation or with deep breathing. HEART EXAMINATION: Regular rate and rhythm. S1, S2 heard. Systolic ejection murmur at the base, no gallops or rub. ABDOMEN: Soft, nontender. Positive bowel sounds. EXTREMITIES: 2+ peripheral pulses, no lower extremity edema and no calf tenderness. NEUROLOGIC EXAMINATION: Patient is awake, alert and oriented x3. ASSESSMENT Chest pain, atypical, pleuritic, acute coronary syndrome has ruled out Acute on chronic kidney disease Coronary artery disease, exact details unavailable Paroxysmal atrial fibrillation on long-term anticoagulation secondary to GI bleeding currently maintaining sinus mechanism Hypertension Dyslipidemia Former nicotine dependence PLAN Pain is atypical for angina, pleuritic in nature. Acute coronary syndrome has been ruled out. Echocardiogram revealed an EF of 5560 percent, mild aortic stenosis with a peak/mean gradient of 22 mmHg/11 mmHg, moderate mitral regurgitation. He is currently maintained on appropriate medical therapy. Maintaining sinus mechanism and not on anticoagulation due to history of GI bleed No further cardiac workup at this time, follow along as needed. 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 Thank you kindly for this consultation. Nurse Practitioner note has been reviewed, I agree with a documented findings and plan of care. Patient was seen and examined. Past Medical History Past Medical History: Atrial Fibrillation, Cancer, Hyperlipidemia, Hypertension, Seizure Disorder Additional Past Medical History / Comment(s): bladder CA Prostate CA History of Any Multi-Drug Resistant Organisms: None Reported Past Surgical History: Bladder Surgery, Prostate Surgery Past Psychological History: No Psychological Hx Reported Smoking Status: Never smoker Past Alcohol Use History: None Reported Past Drug Use History: None Reported Medications and Allergies Home Medications Medication Instructions Recorded Confirmed Type Aspirin EC [Ecotrin Low Dose] 81 mg PO DAILY@59908/20/19 10/19/21 History Atorvastatin [Lipitor] 40 mg PO HS@199908/20/19 10/19/21 History Ferrous Sulfate [Iron (65 MG 325 mg PO HS@199908/20/19 10/19/21 History Elemental)] Furosemide [Lasix] 40 mg PO HS@199908/20/19 10/19/21 History HYDROcodone/APAP 10-325MG [[place] 1 tab PO BID PRN 08/20/19 10/19/21 History 10-325] Nitroglycerin Sl Tabs [Nitrostat] 0.4 mg SL Q5M PRN 08/20/19 10/19/21 History amLODIPine [Norvasc] 5 mg PO DAILY@59908/20/19 10/19/21 History hydrALAZINE HCL [Apresoline] 100 mg PO BID@08/20/19 10/19/21 History Amiodarone [Cordarone] 100 mg PO DAILY@59902/04/21 10/19/21 History Carvedilol [Coreg] 6.25 mg PO DAILY@59902/04/21 10/19/21 History Isosorbide Mononitrate ER [Imdur] 30 mg PO DAILY@59902/04/21 10/19/21 History Acetaminophen Tab [Tylenol Tab] 500 mg PO Q6H PRN 10/19/21 10/19/21 History Albuterol Inhaler [Ventolin Hfa 2 puff INHALATION RT-QID PRN 10/19/21 10/19/21 History Inhaler] Albuterol Nebulized [Ventolin 2.5 mg INHALATION RT-Q6H PRN 10/19/21 10/19/21 History Nebulized] Allergies Allergy/AdvReac Type Severity Reaction Status Date / Time No Known Allergies Allergy Verified 10/19/21 17:04 Physical Exam Vitals: Vital Signs Temp Pulse Pulse Resp BP BP Pulse Ox 10/20/21 07:00 98.3 F 54 L 16 157/68 95 10/20/21 02:45 98.4 F 61 18 169/65 94 L 10/19/21 20:54 98.4 F 62 18 151/60 95 10/19/21 19:54 60 172/66 10/19/21 19:44 66 18 205/80 96 10/19/21 17:06 177/78 10/19/21 16:25 76 226/88 10/19/21 16:20 80 18 227/104 96 Intake and Output 10/19/21 10/20/21 10/20/21 22:59 06:59 14:59 Other: Voiding Method Diaper Incontinent # Voids 1 2 Weight 68.039 kg Results 10/19/21 16:28 10/19/21 16:28 Cardiac Enzymes 10/19/21 10/19/21 10/19/21 Range/Units 16:28 16:28 19:51 AST 42 (17-59) U/L Troponin I <0.012 0.014 (0.000-0.034) ng/mL 10/19/21 Range/Units 22:30 AST (17-59) U/L Troponin I 0.020 (0.000-0.034) ng/mL Coagulation 10/19/21 Range/Units 16:28 PT 9.9 (9.0-12.0) sec APTT 20.3 L (22.0-30.0) sec CBC 10/19/21 Range/Units 16:28 WBC 14.5 H (3.8-10.6) k/uL RBC 4.40 (4.30-5.90) m/uL Hgb 11.3 L (13.0-17.5) gm/dL Hct 36.5 L (39.0-53.0) % Plt Count 96 L (150-450) k/uL Comprehensive Metabolic Panel 10/19/21 Range/Units 16:28 Sodium 136 L (137-145) mmol/L Potassium 5.6 H (3.5-5.1) mmol/L Chloride 103 (98-107) mmol/L Carbon Dioxide 24 (22-30) mmol/L BUN 34 H (9-20) mg/dL Creatinine 2.42 H (0.66-1.25) mg/dL Glucose 101 H (74-99) mg/dL Calcium 9.2 (8.4-10.2) mg/dL AST 42 (17-59) U/L ALT 14 (4-49) U/L Alkaline Phosphatase 61 (38-126) U/L Total Protein 8.0 (6.3-8.2) g/dL Albumin 4.6 (3.5-5.0) g/dL Current Medications Generic Name Dose Route Start Last Admin Trade Name Freq PRN Reason Stop Dose Admin Acetaminophen 500 mg 10/19/21 19:22 10/20/21 05:53 Acetaminophen Tab 500 Mg Tab PO 500 mg Q6H PRN Administration Mild Pain or Fever > 100.5 Hydrocodone Bitart/Acetaminophen 1 each 10/19/21 19:22 10/19/21 19:35 Hydrocodone/Apap 10-325mg 1 Each Tab PO 1 each BID PRN Administration Pain Albuterol Sulfate 2.5 mg 10/19/21 19:22 Albuterol Nebulized 2.5 Mg/3 Ml INHALATION RT-Q6H PRN Shortness Of Breath Amiodarone HCl 100 mg 10/20/21 06:00 10/20/21 05:52 Amiodarone 100 Mg Tab PO 100 mg DAILY@06 [facility] Administration Amlodipine Besylate 5 mg 10/20/21 06:00 10/20/21 05:52 Amlodipine 5 Mg Tab PO 5 mg DAILY@0600 TOY Administration Aspirin 325 mg 10/20/21 09:00 Aspirin 325 Mg Tab PO DAILY [facility] Atorvastatin Calcium 40 mg 10/19/21 20:00 10/19/21 19:42 Atorvastatin 40 Mg Tab PO 40 mg HS@1999 TOY Administration Carvedilol 6.25 mg 10/20/21 06:00 10/20/21 05:52 Carvedilol 6.25 Mg Tab PO 6.25 mg DAILY@599 [facility] Administration Furosemide 40 mg 10/19/21 20:00 10/19/21 19:36 Furosemide 40 Mg Tab PO 40 mg HS@1999 [facility] Administration Hydralazine HCl 100 mg 10/19/21 20:00 10/20/21 05:53 Hydralazine Hcl 50 Mg Tab PO 100 mg BID@599,1999 [facility] Administration Nitroglycerin 1 inch 10/20/21 00:00 10/20/21 05:52 Nitroglycerin Oint 1 Inch/Gm Packet TOPICAL 1 inch Q6HR TOY Administration Nitroglycerin 0.4 mg 10/19/21 19:24 Nitroglycerin Sl Tabs 0.4 Mg Tab SUBLINGUAL Q5M PRN Chest Pain Intake and Output 10/19/21 10/20/21 10/20/21 22:59 06:59 14:59 Other: Voiding Method Diaper Incontinent # Voids 1 2 Weight 68.039 kg 10/19/21 16:28 10/19/21 16:28
[2021-10-20 09:41] LABS: Chol/HDL Ratio 2.04 Ratio; LDL Cholesterol,Calculated 38.4 mg/dL (0.0-131.0); VLDL Calculation 15.16 mg/dL (5.00-40.00)
[2021-10-20] MEDS ORDERED: FUROSEMIDE 10 MG/ML 4 ML VIAL IV STA (10:21)
--- NOTE | 2021-10-20 10:24 | P.HPIM ---
History of Present Illness Patient is a pleasant 86-year-old male came in with complaints of left-sided chest pain nonradiating actually mostly in the mid thoracic area radiating to the front moderate severity sharp in nature pleuritic in nature., Nonexertional not associated with food. Patient had an EKG showed T-wave inversions in lead 3 which are old no acute ST-T wave changes. Patient's troponins were negative. Patient also had a CT of the chest which did not show any pulmonary embolism CT did not show any articular aneurysm or rupture. Patient doesn't have any pneumonia had a slight pleural effusion on one side. Patient was also found to have incidental pulmonary nodule which need to be followed as an outpatient. Patient is also found to have an incidental lesion on the kidney, it was suggested patient get a contrast CT with renal protocol for an MRI with contrast with renal protocol although unfortunately I cannot get any of these tests at this time because of his a elevated creatinine. Patient will be referred to oncology and pulmonary as an outpatient. Patient was a valid by cardiology cleared for discharge. Patient does have chronic kidney disease with baseline creatinine of 2.4 to patient's potassium is mildly elevated to 5.6 and is a hemolyzed sample. He is also complaining of some shortness of breath and orthopnea patient does have history of his heart failure chronic diastolic dysfunction and does have some chronic shortness of breath his present status of that is bit more than usual. Patient is receiving IV fluids at 100 mL/h which is being discontinued and patient will be given a dose of IV Lasix. Although chest x-ray or CT did not show any significant pulmonary edema patient also complained about 1 episode of mild hemoptysis and patient had an elevated d- dimer REVIEW OF SYSTEMS: CONSTITUTIONAL: No fever, no malaise, no fatigue. HEENT: No recent visual problems or hearing problems. Denied any sore throat. CARDIOVASCULAR: no palpitations, no syncope. PULMONARY: As mentioned above GASTROINTESTINAL: No diarrhea, no nausea, no vomiting, no abdominal pain. NEUROLOGICAL: No headaches, no weakness, no numbness. HEMATOLOGICAL: Denies any bleeding or petechiae. GENITOURINARY: Denies any burning micturition, frequency, or urgency. MUSCULOSKELETAL/RHEUMATOLOGICAL: Denies any joint pain, swelling, or any muscle pain. ENDOCRINE: Denies any polyuria or polydipsia. The rest of the 14-point review of systems is negative. PHYSICAL EXAMINATION: GENERAL: The patient is alert and oriented x3, not in any acute distress. Well developed, well nourished. HEENT: Pupils are round and equally reacting to light. EOMI. No scleral icterus. No conjunctival pallor. Normocephalic, atraumatic. No pharyngeal erythema. No thyromegaly. CARDIOVASCULAR: S1 and S2 present. No murmurs, rubs, or gallops. PULMONARY: Chest is clear to auscultation, no wheezing or crackles. ABDOMEN: Soft, nontender, nondistended, normoactive bowel sounds. No palpable organomegaly. MUSCULOSKELETAL: No joint swelling or deformity. EXTREMITIES: No cyanosis, clubbing, or pedal edema. NEUROLOGICAL: Gross neurological examination did not reveal any focal deficits. SKIN: No rashes. Assessment and plan -Chest pain: Most was postictal probably thoracic vertebral origin. Ruled out acute concurrent syndromes, rule out pulmonary embolism and aortic injury as well rupture. Patient was cleared for discharge patient will follow-up with the cardiology and PCP as an outpatient -Chronic kidney disease stage IV patient spelled creatinine is at his baseline -Congestive heart failure chronic diastolic dysfunction with mild acute exacerbation secondary to IV fluids he received Coumadin a counseling was provided patient will be given a dose of Lasix. -Proximal atrial fibrillation patient is not on any long-term and accommodation because of GI bleeding presently sinus rhythm -Hypertension -Coronary artery disease -Dyslipemia -Hypokalemia secondary to hemolysis no further intervention is necessary at this time patient is not on any ALMAS inhibitor or angiotensin receptor dino at this time Have leukocytosis reactive in nature -Chronic thrombocytopenia etiology is not clear probably bone marrow suppression -Incidental finding of pulmonary nodule follow-up with the pulmonary as an outpatient and ended follow up with the chest CT in 3 months. Patient probably will not be a candidate for any treatment even if it turns out to be cancer considering his age and comorbidities. -Incidental finding of renal lesion: Further workup can be done as an outpatient surgical follow-up with oncology as an outpatient. As mentioned above patient may not be a candidate for any treatment or even further workup. Considering his GFR of around any [address] or a gadolinium contrast MRI cannot be obtained at this time. She will be discharged today, patient lives by himself with his and a son who lives close by and does not believe will need any home care at home physical therapy. Past Medical History Past Medical History: Atrial Fibrillation, Cancer, Hyperlipidemia, Hypertension, Seizure Disorder Additional Past Medical History / Comment(s): bladder CA Prostate CA History of Any Multi-Drug Resistant Organisms: None Reported Past Surgical History: Bladder Surgery, Prostate Surgery Past Psychological History: No Psychological Hx Reported Smoking Status: Never smoker Past Alcohol Use History: None Reported Past Drug Use History: None Reported Medications and Allergies Home Medications Medication Instructions Recorded Confirmed Type Aspirin EC [Ecotrin Low Dose] 81 mg PO DAILY@59908/20/19 10/19/21 History Atorvastatin [Lipitor] 40 mg PO HS@199908/20/19 10/19/21 History Ferrous Sulfate [Iron (65 MG 325 mg PO HS@199908/20/19 10/19/21 History Elemental)] Furosemide [Lasix] 40 mg PO HS@199908/20/19 10/19/21 History HYDROcodone/APAP 10-325MG [[place] 1 tab PO BID PRN 08/20/19 10/19/21 History 10-325] Nitroglycerin Sl Tabs [Nitrostat] 0.4 mg SL Q5M PRN 08/20/19 10/19/21 History amLODIPine [Norvasc] 5 mg PO DAILY@59908/20/19 10/19/21 History hydrALAZINE HCL [Apresoline] 100 mg PO BID@08/20/19 10/19/21 History Amiodarone [Cordarone] 100 mg PO DAILY@59902/04/21 10/19/21 History Carvedilol [Coreg] 6.25 mg PO DAILY@59902/04/21 10/19/21 History Isosorbide Mononitrate ER [Imdur] 30 mg PO DAILY@59902/04/21 10/19/21 History Acetaminophen Tab [Tylenol] 500 mg PO Q6H PRN 10/19/21 10/19/21 History Albuterol Inhaler [Ventolin Hfa 2 puff INHALATION RT-QID PRN 10/19/21 10/19/21 History Inhaler] Albuterol Nebulized [Ventolin 2.5 mg INHALATION RT-Q6H PRN 10/19/21 10/19/21 Hi [place] Nebulized] Allergies Allergy/AdvReac Type Severity Reaction Status Date / Time No Known Allergies Allergy Verified 10/19/21 17:04 Physical Exam Vitals: Vital Signs Temp Pulse Pulse Resp BP BP Pulse Ox 10/20/21 07:00 98.3 F 54 L 16 157/68 95 10/20/21 02:45 98.4 F 61 18 169/65 94 L 10/19/21 20:54 98.4 F 62 18 151/60 95 10/19/21 19:54 60 172/66 10/19/21 19:44 66 18 205/80 96 10/19/21 17:06 177/78 10/19/21 16:25 76 226/88 10/19/21 16:20 80 18 227/104 96 Intake and Output 10/19/21 10/20/21 10/20/21 22:59 06:59 14:59 Other: Voiding Method Diaper Incontinent # Voids 1 2 Weight 68.039 kg Results CBC & Chem 7: 10/19/21 16:28 10/19/21 16:28 Labs: Abnormal Lab Results - Last 24 Hours (Table) 10/19/21 10/19/21 10/19/21 Range/Units 16:28 16:28 16:28 WBC 14.5 H (3.8-10.6) k/uL Hgb 11.3 L (13.0-17.5) gm/dL Hct 36.5 L (39.0-53.0) % MCHC 30.8 L (31.0-37.0) g/dL RDW 15.8 H (11.5-15.5) % Plt Count 96 L (150-450) k/uL Neutrophils # 11.9 H (1.3-7.7) k/uL Lymphocytes # 0.6 L (1.0-4.8) k/uL Monocytes # 1.5 H (0-1.0) k/uL APTT 20.3 L (22.0-30.0) sec D-Dimer 1.18 H (<0.60) mg/L FEU Sodium 136 L (137-145) mmol/L Potassium 5.6 H (3.5-5.1) mmol/L BUN 34 H (9-20) mg/dL Creatinine 2.42 H (0.66-1.25) mg/dL Glucose 101 H (74-99) mg/dL Magnesium 2.5 H (1.6-2.3) mg/dL
--- NOTE | 2021-10-20 10:25 | P.DS ---
Providers Date of admission: 10/19/21 19:21 Attending physician: Karie Claire Consults: 10/19/21 19:21 Consult Physician Urgent Consulting Provider: [facility] Consult Reason/Comments: Chest pain Do you want consulting provider notified?: Yes Primary care physician: Vadim Torrez [facility] Course: Please refer to my history of present illness for further details Plan - Discharge Summary New Discharge Prescriptions: Continue HYDROcodone/APAP 10-325MG [[place] 10-325] 1 tab PO BID PRN PRN Reason: Pain Nitroglycerin Sl Tabs [Nitrostat] 0.4 mg SL Q5M PRN PRN Reason: Chest Pain Furosemide [Lasix] 40 mg PO HS@1999 Aspirin EC [Ecotrin Low Dose] 81 mg PO DAILY@0600 Ferrous Sulfate [Iron (65 MG Elemental)] 325 mg PO HS@1999 Atorvastatin [Lipitor] 40 mg PO HS@1999 hydrALAZINE HCL [Apresoline] 100 mg PO BID@599,1999 amLODIPine [Norvasc] 5 mg PO DAILY@0600 Carvedilol [Coreg] 6.25 mg PO DAILY@06 Albuterol Nebulized [Ventolin Nebulized] 2.5 mg INHALATION RT-Q6H PRN PRN Reason: Shortness Of Breath Amiodarone [Cordarone] 100 mg PO DAILY@0600 Isosorbide Mononitrate ER [Imdur] 30 mg PO DAILY@0600 Albuterol Inhaler [Ventolin Hfa Inhaler] 2 puff INHALATION RT-QID PRN PRN Reason: Shortness Of Breath Acetaminophen Tab [Tylenol] 500 mg PO Q6H PRN PRN Reason: Pain Or Fever > 100.5 Discharge Medication List Aspirin EC [Ecotrin Low Dose] 81 mg PO DAILY@0600 08/20/19 [History] Atorvastatin [Lipitor] 40 mg PO HS@199908/20/19 [History] Ferrous Sulfate [Iron (65 MG Elemental)] 325 mg PO HS@199908/20/19 [History] Furosemide [Lasix] 40 mg PO HS@199908/20/19 [History] HYDROcodone/APAP 10-325MG [[place] 10-325] 1 tab PO BID PRN 08/20/19 [History] Nitroglycerin Sl Tabs [Nitrostat] 0.4 mg SL Q5M PRN 08/20/19 [History] amLODIPine [Norvasc] 5 mg PO DAILY@59908/20/19 [History] hydrALAZINE HCL [Apresoline] 100 mg PO BID@599,199908/20/19 [History] Amiodarone [Cordarone] 100 mg PO DAILY@59902/04/21 [History] Carvedilol [Coreg] 6.25 mg PO DAILY@59902/04/21 [History] Isosorbide Mononitrate ER [Imdur] 30 mg PO DAILY@59902/04/21 [History] Acetaminophen Tab [Tylenol] 500 mg PO Q6H PRN 10/19/21 [History] Albuterol Inhaler [Ventolin Hfa Inhaler] 2 puff INHALATION RT-QID PRN 10/19/21 [History] Albuterol Nebulized [Ventolin Nebulized] 2.5 mg INHALATION RT-Q6H PRN 10/19/21 [History] Follow up Appointment(s)/Referral(s): Iban Epps MD [STAFF PHYSICIAN] - 1 Week Vadim Torrez MD [Primary Care Provider] - 3 Days Dat Matthews MD [STAFF PHYSICIAN] - 1 Week Activity/Diet/Wound Care/Special Instructions: Please follow up with your crane man Dr. Mora in [place] in 1-2 weeks Discharge Disposition: HOME SELF-CARE
[2021-10-20 14:00] VITALS: BP 199/74; PULSE 62; RESP 17; TEMP 98.5
== END 2021-10-20 14:45 | disposition home or self-care (01) ==
LOC: EC 16:17 → 6NMEDSUR 19:21
PROVIDERS: ADMIT Hospitalist; ATTEND Hospitalist
DX: R07.89 Other chest pain (principal); I13.0 Hypertensive heart and chronic kidney disease with heart failure and stage 1 through stage 4 chronic kidney disease, or unspecified chronic kidney disease; I50.33 Acute on chronic diastolic (congestive) heart failure; N18.4 Chronic kidney disease, stage 4 (severe); J43.2 Centrilobular emphysema; E78.5 Hyperlipidemia, unspecified; I48.0 Paroxysmal atrial fibrillation; I08.3 Combined rheumatic disorders of mitral, aortic and tricuspid valves; E87.5 Hyperkalemia; D72.829 Elevated white blood cell count, unspecified; D69.6 Thrombocytopenia, unspecified; G40.909 Epilepsy, unspecified, not intractable, without status epilepticus; R79.89 Other specified abnormal findings of blood chemistry; R91.1 Solitary pulmonary nodule; I70.0 Atherosclerosis of aorta; I25.10 Atherosclerotic heart disease of native coronary artery without angina pectoris; I45.10 Unspecified right bundle-branch block; E04.1 Nontoxic single thyroid nodule; N28.1 Cyst of kidney, acquired; K40.90 Unilateral inguinal hernia, without obstruction or gangrene, not specified as recurrent; I25.2 Old myocardial infarction; K57.30 Diverticulosis of large intestine without perforation or abscess without bleeding; Z20.822 Contact with and (suspected) exposure to COVID-19; Z79.82 Long term (current) use of aspirin; Z79.899 Other long term (current) drug therapy; Z85.46 Personal history of malignant neoplasm of prostate; Z85.51 Personal history of malignant neoplasm of bladder; Z98.890 Other specified postprocedural states; Z87.891 Personal history of nicotine dependence; Z77.090 Contact with and (suspected) exposure to asbestos; Z95.5 Presence of coronary angioplasty implant and graft; Z87.19 Personal history of other diseases of the digestive system
CPT/HCPCS: 96375 ×2; 96376; 96361; 96374; 99291; 36415; 93005; 93306; 85379; 80061; 80053; 83735; 84484; 85025; 85610; 85730; 87635; 71046; 71275; 74174; G0378 ×2; J1940; J2270; Q9967